=== PATIENT | female | born 1945 | race Caucasian/White ===

== ENCOUNTER → 2016-04-19 | Outpatient (CLI) | payer OTHER ==
[2016-04-19 17:36] LABS: BLOOD UREA NITROGEN 18 mg/dl (7-18); BUN/CREATININE RATIO 23.3 (10-20); CALCIUM 8.6 mg/dl (8.5-10.1); CARBON DIOXIDE 28 mmol/L (21-32); CHLORIDE 109 mmol/L (98-107); CREATININE 0.76 mg/dl (0.60-1.20); GLUCOSE 80 mg/dl (70-99); SODIUM 144 mmol/L (136-145)
== END | disposition home or self-care (01) ==
LOC: C.LABPBG 13:05
PROVIDERS: ATTEND Family Medicine
DX: I10 Essential (primary) hypertension (principal)

== ENCOUNTER → 2016-06-27 | Outpatient (CLI) | payer OTHER ==
--- NOTE | 2016-06-27 16:34 | MAMMOGRAPHY REPORT ---
BILATERAL DIGITAL SCREENING MAMMOGRAM WITH CAD: 06/27/2016 TECHNIQUE: Current study was also evaluated with a Computer Aided Detection (CAD) system. Bilatera l CC and MLO views were obtained. COMPARISON: Comparison is made to exams dated: 11/01/2014 mammogram, 08/25/2013 mammogram, 07/31/2012 ultrasound biopsy, 07/13/2012 consultation, 07/13/2012 ultrasound - [facility], and mammogram. BREAST COMPOSITION: The tissue of both breasts is almost entirely fatty. FINDINGS: No suspicious masses, calcifications, or areas of architectural distortion are noted in e ither breast. There has been no significant interval change compared to prior exams. A biopsy marke r clip is again noted in the left 3:00 breast. IMPRESSION: ACR BI-RADS CATEGORY 2: BENIGN There is no mammographic evidence of malignancy. A 1 year screening mammogram is recommended. The p atient will receive written notification of the results. Approximately 10% of breast cancers are not detected with mammography. A negative mammographic repor t should not delay biopsy if a clinically suggestive mass is present. Adriana Luu M.D. /:06/27/2016 14:52:02 Multiple Coil Winder: Sima LYN)(Danae), [facility] letter sent: Normal 1/2 BI-RADS Code: ACR BI-RADS Category 2: Benign
== END | disposition home or self-care (01) ==
LOC: C.MAMM 13:17
PROVIDERS: ATTEND Family Medicine
DX: Z12.31 Encounter for screening mammogram for malignant neoplasm of breast (principal)

== ENCOUNTER → 2016-09-04 | Outpatient (CLI) | payer OTHER ==
[2016-09-05 06:55] LABS: ESTIMATED AVERAGE GLUCOSE 114 mg/dl; HA1C FLAG Normal (Normal)
--- NOTE | 2016-09-24 12:44 | CODING QUERY MEDICAL NECESSITY ---
SUPPORTING DIAGNOSIS NEEDED A supporting diagnosis is required for the test/procedure performed on this patient in order for us to be reimbursed by the patient's insurance. Please provide a supporting diagnosis for the following test/procedure listed below next to the test name along with your signature. *If there is no additional diagnosis for this patient that would support the following test/procedure please document that below next to the test/procedure. Test(s)/Procedure(s) that require a supporting diagnosis: * HEMOGLOBIN A1C DIAGNOSIS: Provider Signature: Date: Thank you Tammy Phillip [employer] Once completed, please kindly fax back to [phone] For questions please call [phone]
== END | disposition home or self-care (01) ==
LOC: C.LABPBG 12:10
PROVIDERS: ATTEND Family Medicine
DX: Z13.1 Encounter for screening for diabetes mellitus (principal); E55.9 Vitamin D deficiency, unspecified; R30.0 Dysuria

== ENCOUNTER → 2016-09-04 | Outpatient (CLI) | payer OTHER ==
[2016-09-04 17:43] LABS: URINE APPEARANCE TURBID (CLEAR); URINE BILIRUBIN NEG (NEG); URINE COLOR YELLOW; URINE EPITHELIAL CELL AUTO >30 /lpf (0-5); URINE NITRITE NEG (NEG); UROBILINOGEN NEG (NEG); ZZUR CULT IF INDIC CLEAN CATCH NO
[2016-09-04 17:48] LABS: MANUAL MICROSCOPIC REQUIRED? NO; REVIEW REQ? NO
== END | disposition home or self-care (01) ==
LOC: C.LABSPEC 11:08
PROVIDERS: ATTEND Physician Assistant
DX: R30.0 Dysuria (principal)

== ENCOUNTER → 2016-09-11 | Outpatient (CLI) | payer OTHER ==
[2016-09-11 17:45] LABS: URINE APPEARANCE CLOUDY (CLEAR); URINE BILIRUBIN NEG (NEG); URINE COLOR DK YELLOW; URINE EPITHELIAL CELL AUTO >30 /lpf (0-5); URINE NITRITE NEG (NEG); UROBILINOGEN NEG (NEG); ZZUR CULT IF INDIC CLEAN CATCH NO
[2016-09-11 17:48] LABS: MANUAL MICROSCOPIC REQUIRED? NO; REVIEW REQ? NO
== END | disposition home or self-care (01) ==
LOC: C.LABPBG 12:41
PROVIDERS: ATTEND Family Medicine
DX: R30.0 Dysuria (principal)

== ENCOUNTER → 2017-03-12 | Outpatient (CLI) | payer OTHER ==
[2017-03-12 17:34] LABS: BASO % 1.2 %; BASO ABS # 0.08 K/uL (0-0.2); EOS % 1.9 %; EOS ABS # 0.13 K/uL (0-0.5); HEMATOCRIT 43.9 % (37-47); HEMOGLOBIN 14.1 g/dL (12.0-16.0); IG# 0.02 K/uL (0.00-0.02); LYMPH % 22.8 %; LYMPH ABS # 1.53 K/uL (1.2-3.4); MEAN CELL VOLUME 90.5 fL (80-100); MEAN CORPUSCULAR HEMOGLOBIN 29.1 pg (25-34); MEAN CORPUSCULAR HGB CONC 32.1 g/dl (32-36); MEAN PLATELET VOLUME 10.3 fL (7.4-10.4); MONO % 11.2 %; MONO ABS # 0.75 K/uL (0.11-0.59); NEUT % 62.6 %; NEUT ABS # 4.19 K/uL (1.4-6.5); PLATELET COUNT 198 K/uL (130-400); RED CELL DISTRIBUTION WIDTH CV 13.4 % (11.5-14.5); RED CELL DISTRIBUTION WIDTH SD 44.3 fL (36.4-46.3)
[2017-03-12 18:07] LABS: ALBUMIN 3.3 gm/dl (3.4-5.0); BLOOD UREA NITROGEN 19 mg/dl (7-18); CALCIUM 8.8 mg/dl (8.5-10.1); CARBON DIOXIDE 30 mmol/L (21-32); CREATININE 0.67 mg/dl (0.60-1.20); GLUCOSE 90 mg/dl (70-99); POTASSIUM 3.6 mmol/L (3.5-5.1); SODIUM 141 mmol/L (136-145)
[2017-03-12 18:15] LABS: ALKALINE PHOSPHATASE 111 U/L (45-117); ALT/SGPT 111 U/L (12-78); AST/SGOT 102 U/L (15-37); TOTAL PROTEIN 7.8 gm/dl (6.4-8.2)
== END | disposition home or self-care (01) ==
LOC: C.LABPBG 13:20
PROVIDERS: ATTEND Family Medicine
DX: E55.9 Vitamin D deficiency, unspecified (principal); R11.2 Nausea with vomiting, unspecified

== ENCOUNTER → 2017-04-01 | Outpatient (CLI) | payer OTHER ==
[2017-04-01 19:17] LABS: ALBUMIN 3.2 gm/dl (3.4-5.0); ALKALINE PHOSPHATASE 102 U/L (45-117); ALT/SGPT 31 U/L (12-78); AST/SGOT 20 U/L (15-37); TOTAL PROTEIN 7.3 gm/dl (6.4-8.2)
== END | disposition home or self-care (01) ==
LOC: C.LABPBG 12:39
PROVIDERS: ATTEND Family Medicine
DX: R74.8 Abnormal levels of other serum enzymes (principal)

== ENCOUNTER → 2017-07-04 | Outpatient (CLI) | payer OTHER ==
[2017-07-04 17:17] LABS: BASO % 0.7 %; BASO ABS # 0.05 K/uL (0-0.2); EOS ABS # 0.15 K/uL (0-0.5); HEMATOCRIT 42.6 % (37-47); IG# 0.02 K/uL (0.00-0.02); LYMPH % 24.6 %; MEAN CELL VOLUME 88.6 fL (80-100); MEAN CORPUSCULAR HEMOGLOBIN 29.1 pg (25-34); MEAN CORPUSCULAR HGB CONC 32.9 g/dl (32-36); MEAN PLATELET VOLUME 9.9 fL (7.4-10.4); MONO % 7.5 %; MONO ABS # 0.55 K/uL (0.11-0.59); NEUT % 64.9 %; NEUT ABS # 4.75 K/uL (1.4-6.5); PLATELET COUNT 254 K/uL (130-400); RED CELL DISTRIBUTION WIDTH CV 12.9 % (11.5-14.5); RED CELL DISTRIBUTION WIDTH SD 41.7 fL (36.4-46.3); WHITE BLOOD COUNT 7.32 K/uL (4.8-10.8)
[2017-07-04 17:27] LABS: PTT PATIENT 26.4 SECONDS (21.0-31.0)
[2017-07-04 17:41] LABS: BLOOD UREA NITROGEN 22 mg/dl (7-18); CALCIUM 8.9 mg/dl (8.5-10.1); CARBON DIOXIDE 29 mmol/L (21-32); CREATININE 0.72 mg/dl (0.60-1.20); GLUCOSE 83 mg/dl (70-99); SODIUM 139 mmol/L (136-145)
== END | disposition home or self-care (01) ==
LOC: C.LABPBG 14:30
PROVIDERS: ATTEND Family Medicine
DX: E55.9 Vitamin D deficiency, unspecified (principal); Z01.818 Encounter for other preprocedural examination

== ENCOUNTER → 2017-07-07 | Outpatient (CLI) | payer OTHER | END | disposition home or self-care (01) | LOC: C.LABSPEC 10:20 | PROVIDERS: ATTEND Family Medicine | DX: Z01.818 Encounter for other preprocedural examination (principal) ==

== ENCOUNTER → 2017-07-15 | Outpatient (CLI) | payer OTHER ==
--- NOTE | 2017-07-15 13:20 | DIAGNOSTIC IMAGING REPORT ---
CHEST 2 VIEWS ROUTINE CLINICAL HISTORY: Z01.818 Preop examination preoperative evaluation COMPARISON STUDY: No previous studies for comparison. FINDINGS: Minimal basilar fibrotic change. No acute infiltrate. Diaphragms are smooth. Calcific angles are sharp. There are degenerative changes of the thoracic spine. IMPRESSION: No acute process. The above report was generated using voice recognition software. It may contain grammatical, syntax or spelling errors. Electronically signed by: Pedro Garcia M.D. 07/15/2017 1:19 PM Dictated Date/Time: 07/15/2017 1:18 PM
== END | disposition home or self-care (01) ==
LOC: C.RADBC 12:35
PROVIDERS: ATTEND Family Medicine
DX: Z01.818 Encounter for other preprocedural examination (principal)

== ENCOUNTER 2021-04-03 15:57 | Inpatient (IN) ==
--- NOTE | 2021-04-03 16:53 | XRay Report ---
XR chest 1V portable CLINICAL HISTORY: congestion TECHNIQUE: Single frontal radiograph of the chest was obtained. Comparison: Comparison is made to chest one view 02/18/2018 FINDINGS: No lines and tubes are seen. The cardiomediastinal silhouette is stable. Prominence and cephalization of the vasculature is seen. Atelectasis is seen at the left lung base. No evidence of pleural effusi on or pneumothorax. IMPRESSION: Mild pulmonary edema. ACT 112: Negative or not required by law. Electronically signed by: Darius Timmons M.D. 04/03/2021 4:52 PM
[2021-04-03 16:57] LABS: Appearance Urine Clear (Clear); Bacteria Urine Automated Negative (Negative); Blood Urine Negative (Negative); Color Urine Dark Yellow; Epithelial Cell Urine Auto >30 /lpf (0-5); Glucose Urine UA Negative (Negative); Ketones Urine Trace (Negative); Leukocyte Esterase Urine Trace (Negative); Nitrite Urine Negative (Negative); Protein Urine 1+ (Negative); RBC Urine Automated 0-4 /hpf (0-4); Urobilinogen Urine Negative (Negative); pH Urine 5.5 (4.5-7.5)
[2021-04-03 17:58] LABS: Bilirubin Urine 1+ (Negative)
[2021-04-03] MEDS ORDERED: ACETAMINOPHEN 1000 MG/100 ML IV IV STA (19:24)
[2021-04-03 19:54] LABS: Basophils # (auto) 0.02 K/uL (0-0.2); Basophils % (auto) 0.4 %; Eosinophils # (auto) 0.02 K/uL (0-0.5); Eosinophils % (auto) 0.4 %; Hematocrit (blood only) 51.3 % (37-47); Hemoglobin 16.4 g/dL (12.0-16.0); Lymphocytes # (auto) 1.17 K/uL (1.2-3.4); Lymphocytes % (auto) 25.7 %; Mean Corpuscular Hemoglobin 28.8 pg (25-34); Mean Corpuscular Volume 90.2 fL (80-100); Mean Platelet Volume 9.9 fL (7.4-10.4); Monocytes # (auto) 0.86 K/uL (0.11-0.59); Monocytes % (auto) 18.9 %; Neutrophils # (auto) 2.49 K/uL (1.4-6.5); Neutrophils % (auto) 54.6 %; Platelet Count 180 K/uL (130-400); RDW Coefficient of Variation 12.9 % (11.5-14.5); RDW Standard Deviation 42.9 fL (36.4-46.3); Red Blood Count 5.69 M/uL (4.2-5.4); White Blood Count 4.56 K/uL (4.8-10.8)
[2021-04-03 20:14] LABS: D Dimer 450 ug/L FEU (0-500)
[2021-04-03] MEDS ORDERED: dexAMETHasone 6 MG in SYRINGE 0 ML IV ONE (20:24)
[2021-04-03 20:30] LABS: BUN Creatinine Ratio 23.6 (10-20); Bilirubin,Total 0.6 mg/dl (0.2-1.0); Calcium 8.8 mg/dl (8.5-10.1); Creatinine Clr Calc Pharmacy 64.2 ml/min; Est GFR (African American) 94.9 ml/min; Est GFR (Non-African American) 81.9 ml/min; Globulin 4.2 gm/dl (2.5-4.0); Magnesium 1.9 mg/dl (1.7-2.4); Potassium 3.2 mmol/L (3.5-5.1); Total Protein 8.2 gm/dl (6.0-8.3)
[2021-04-03 20:32] LABS: Base Excess VBG 4.7 mEq/L; Oxygen Saturation VBG 86.3 %; pH VBG 7.42 (7.36-7.41)
--- NOTE | 2021-04-03 20:34 | Emergency Department Note ---
History of Present Illness General Chief complaint: Illness Stated complaint: COUGH, VOMITING, SOB, FEVER, Time Seen by Provider: 04/03/21 19:24 History of Present Illness Provider complaint: Nausea, vomiting, diarrhea, fever, body aches, cough Onset (ago): day(s) 2 Associated symptoms: + chest pain, + cough, + fever/chills, + malaise, + nausea/vomiting and + shortness of breath; no seizure or no weakness 75-year-old female presents emergency department with Nausea, vomiting, diarrhea, fever, body aches, cough for 2 weeks. She denies any hematuria dysuria melena hematochezia or hemoptysis. Patient states she thinks she has the flu. Patient is unvaccinated COVID-19. Home Medications Medication Instructions Recorded Confirmed Type multivitamin (Daily Multi-Vitamin) 1 tab PO DAILY 07/30/18 04/03/21 History cholecalciferol (vitamin D3) 50 2,000 units PO DAILY tab 02/16/19 04/03/21 History mcg (2,000 unit) tablet cyanocobalamin (vitamin B-12) 100 100 mcg PO DAILY tab 02/16/19 04/03/21 History mcg tablet aspirin 81 mg tablet,delayed 81 mg PO DAILY 01/19/20 04/03/21 History release (Aspirin Low Dose) lisinopril 10 mg tablet 20 mg PO QAM #180 tab 03/29/20 04/03/21 Rx amlodipine 5 mg tablet 5 mg PO DAILY #90 tab 08/08/20 04/03/21 Rx lorazepam 0.5 mg tablet 0.5 mg PO TID PRN #90 tab 12/17/20 04/03/21 Rx omeprazole 40 mg capsule,delayed 40 mg PO DAILY PRN 04/03/21 04/03/21 History release Allergies Allergy/AdvReac Type Severity Reaction Status Date / Time No Known Drug Allergies Allergy Unknown Verified 04/03/21 19:54 Past Med/Surg History Medical History Acid reflux disease Calculus of ureterovesical junction (UVJ) CHANTELLE (generalized anxiety disorder) HTN, goal below 140/90 Insomnia 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 Post herpetic neuralgia Urinary incontinence in female Vitamin D deficiency Surgical History H/O rotator cuff surgery Left History of anesthesia reaction SLOW TO WAKE UP - REPORTS THAT THEY'VE HAD TO USE NARCAN TWICE BEFORE History of appendectomy History of bladder surgery "Lift" History of cholecystectomy History of facelift History of herniorrhaphy History of hysterectomy History of tubal ligation Hx of BSO (bilateral salpingo-oophorectomy) Hx of cataract surgery Bilateral;Had laser surgery as well Hx of colonoscopy S/P lumpectomy, left breast With SLN biopsy on 02/16/2020 Family History Mother , 89yo Breast cancer Parkinsons disease Brother Colorectal cancer Father , in his 80s Heart disease Brother No problems noted. Sister , as infant No problems noted. Sister Alzheimer disease Sister No problems noted. Son MVA (motor vehicle accident) Son No problems noted. Son No problems noted. Son No problems noted. Family/Other Breast cancer Cousin on father's side of family Denies family history of Ovarian cancer Prostate cancer Social History Smoking Status: Never smoker Second Hand Exposure: No; Hx Alcohol Use: Yes Alcohol type: hard liquor Alcohol Intake Frequency: Monthly or Less Hx Substance Use: No Preferred Language: Emirati Communication Ability: Effective Visual Impairment: No Limitations Hearing Ability: Normal Crystallography Teacher Required: No Beliefs That Will Affect Care: None marital status: / Current Living Situation: Alone current occupational status: retired Feels Safe at Home: Yes Childhood Exposure to Second-Hand Smoke: No Diet Comment: no specific diet caffeine: Yes (4 cups/day) during the past year weight has: remained stable Dental Care, Regularly: Yes Physical Activity Frequency: Daily Seatbelt Use: always Sunscreen Use: Yes Assistive Devices: None Review of Systems A total of 10 systems reviewed and were otherwise negative Physical Exam Vital Signs Vital Signs - 24 hr 04/03/21 16:03 04/03/21 19:25 04/03/21 19:43 Temperature 38.1 C H Temperature Source Temporal Artery Scan Pulse Rate 118 H 110 H Pulse Rate [Finger] 109 H Pulse Rhythm Regular Respiratory Rate 18 20 20 Blood Pressure 143/90 H Blood Pressure [Left Arm] 137/89 Blood Pressure Mean 107 Blood Pressure Mean [Left Arm] 105 Blood Pressure Position Sitting Pulse Oximetry 92 88 L 99 Oxygen Delivery Method Room Air Room Air Nasal Cannula Oxygen Flow Rate 2 Sepsis Recent Fever Within 48 Hours Yes Sepsis New/Unexplained Change in Mental Status No Sepsis Action Taken by Nursing No Action Required 04/03/21 23:09 Temperature Temperature Source Pulse Rate Pulse Rate [Finger] 99 H Pulse Rhythm Respiratory Rate 20 Blood Pressure Blood Pressure [Left Arm] 137/90 Blood Pressure Mean Blood Pressure Mean [Left Arm] 105 Blood Pressure Position Pulse Oximetry 95 Oxygen Delivery Method Nasal Cannula Oxygen Flow Rate 2 Sepsis Recent Fever Within 48 Hours Sepsis New/Unexplained Change in Mental Status Sepsis Action Taken by Nursing Physical Exam HENT: Exam performed. -Head: Normocephalic and atraumatic. -Right Ear: External ear normal. No mastoid tenderness. -Left Ear: External ear normal. No mastoid tenderness. -Mouth/Throat: The oropharynx is clear and moist. No trismus in the jaw. No dental abscesses or uvula swelling. No oropharyngeal exudate or tonsillar abscesses. EYES: Conjunctivae and EOM are normal. Pupils are equal, round, and reactive to light. Right eye exhibits no discharge. Left eye exhibits no discharge. No scleral icterus. NECK: Normal range of motion. Neck supple. No JVD present. No spinous process tenderness present. No carotid bruit present. No rigidity. No tracheal deviation and normal range of motion present. No Brudzinski's sign and no Kernig's sign noted. CV: Normal rate, regular rhythm, normal heart sounds and intact distal pulses. There is no peripheral edema. Palpable radial pulses bue. PULM/CHEST: Rhonchi bilaterally. -Chest Wall: She exhibits no tenderness. ABD: The abdomen is soft. Bowel sounds are normal. She has no distension. No mass is present. There is no tenderness. There is no rebound, no guarding, no Herrera's sign and no tenderness at McBurney's point. Rovsig negative MUSC/SKEL: Normal range of motion. There is no peripheral edema, tenderness or deformity. LYMPH: No cervical adenopathy. NEURO: She is alert and oriented to person, place, and time. She has normal strength. No cranial nerve deficit or sensory deficit. Coordination and gait normal. GCS eye subscore is 4. GCS verbal subscore is 5. GCS motor subscore is 6. Cerebellar tests wnl. SKIN: Skin is warm and dry. She is not diaphoretic. PSYCH: She has a normal mood and affect. Behavior is normal. Judgment and thought content normal. Course Course 1923: The patient was evaluated in room C4. A complete history and physical exam was performed Cardiac monitoring: An order was placed for continuous cardiac monitoring. The monitor shows a rate of 110 with sinus tachycardia rhythm Patient was hypoxic on room air at 88%. Supplemental oxygen via nasal cannula improved patient's oxygen saturation. High suspicion for Covid pneumonia as the patient's symptoms are consistent with Covid and she is unvaccinated. Decadron 6 mg ordered for the patient. 2129: Vital signs stable. Labs within normal limits with exception of potassium of 3.2. Patient is Covid positive. Patient will be admitted to the [facility] team Dr. Hilton team will be notified. Administered Medications Discontinued Medications Acetaminophen (Acetaminophen 1000 Mg/100 Ml Iv) 1,000 mg IV NOW STA Stop: 04/03/21 19:25 Last Admin: 04/03/21 19:55 Dose: 1,000 mg Documented by: [id number] Furosemide (Furosemide 40 Mg/4 Ml Vial) 40 mg IV ONE ONE Stop: 04/03/21 22:00 Last Admin: 04/03/21 22:20 Dose: 40 mg Documented by: [id number] Dexamethasone 6 mg/ Syringe 1.5 mls @ 1 mls/min IV ONE ONE Stop: 04/03/21 20:25 Last Admin: 04/03/21 21:22 Dose: 1 mls/min Documented by: [id number] Remdesivir 200 mg/ Sodium (Chloride) 250 mls @ 125 mls/hr IV ONE STA; Protocol Stop: 04/03/21 23:38 Last Admin: 04/03/21 22:21 Dose: 125 mls/hr Documented by: [id number] Potassium Chloride (Potassium Chloride 10 Meq Tabcr) 40 meq PO NOW STA Stop: 04/03/21 21:40 Last Admin: 04/03/21 22:21 Dose: 40 meq Documented by: [id number] Critical Care Time Critical Care Time: Yes Total Critical Care Time: 57 I have personally spent greater than 57 minutes of critical care time in the direct management of this patient. This includes bedside care, interpretation of diagnostic studies, and testing, discussion with consultants, patient, and family members, and other required patient management activities. This 57 minutes is in excess of all separately billable procedures. Medical Decision Making Laboratory Data Result diagrams: 04/03/21 19:40 04/03/21 19:40 Lab Results 04/03/21 04/03/21 04/03/21 Range/Units 16:09 19:40 19:40 WBC 4.56 L (4.8-10.8) K/uL RBC 5.69 H (4.2-5.4) M/uL Hgb 16.4 H (12.0-16.0) g/dL Hct 51.3 H (37-47) % MCV 90.2 (80-100) fL MCH 28.8 (25-34) pg MCHC 32.0 (32-36) g/dL RDW Std Deviation 42.9 (36.4-46.3) fL RDW Coeff of Jeffery 12.9 (11.5-14.5) % Plt Count 180 (130-400) K/uL MPV 9.9 (7.4-10.4) fL Immature Gran % (Auto) 0.0 % Neut % (Auto) 54.6 % Lymph % (Auto) 25.7 % Stanley % (Auto) 18.9 % Eos % (Auto) 0.4 % Baso % (Auto) 0.4 % Neut # (Auto) 2.49 (1.4-6.5) K/uL Lymph # (Auto) 1.17 L (1.2-3.4) K/uL Stanley # (Auto) 0.86 H (0.11-0.59) K/uL Eos # (Auto) 0.02 (0-0.5) K/uL Baso # (Auto) 0.02 (0-0.2) K/uL Immature Gran # (Auto) 0.00 (0.00-0.02) K/uL D-Dimer (0-500) ug/L FEU VBG pH (7.36-7.41) VBG pCO2 (38-50) mmHg VBG pO2 mmHg VBG HCO3 mmol/L VBG O2 Saturation % VBG Base Excess mEq/L Barometric Pressure mm/Hg Sodium 142 (136-145) mmol/L Potassium 3.2 L (3.5-5.1) mmol/L Chloride 101 (98-107) mmol/L Carbon Dioxide 34 H (21-32) mmol/L Anion Gap 7 (3-11) BUN 17 (6-23) mg/dl Creatinine 0.72 (0.6-1.2) mg/dl Est Cr Clr Drug Dosing 64.2 ml/min Est GFR ( Amer) 94.9 ml/min Est GFR (Non-Af Amer) 81.9 ml/min BUN/Creatinine Ratio 23.6 H (10-20) Glucose 102 H (70-99(Fasting)) mg/dl Lactate (0.4-2.0) mmol/L Calcium 8.8 (8.5-10.1) mg/dl Magnesium 1.9 (1.7-2.4) mg/dl Total Bilirubin 0.6 (0.2-1.0) mg/dl AST 66 H (13-39) U/L ALT 66 H (7-52) U/L Alkaline Phosphatase 103 (34-104) U/L B-Natriuretic Peptide (0-100) pg/ml Total Protein 8.2 (6.0-8.3) gm/dl Albumin 4.0 (3.4-5.0) gm/dl Globulin 4.2 H (2.5-4.0) gm/dl Albumin/Globulin Ratio 1.0 (0.9-2) Procalcitonin (0-0.5) ng/ml Urine Color Dark Yellow Urine Appearance Clear (Clear) Urine pH 5.5 (4.5-7.5) Ur Specific Lawrence 1.030 (1.000-1.030) Urine Protein 1+ H (Negative) Urine Glucose (UA) Negative (Negative) Urine Ketones Trace H (Negative) Urine Blood Negative (Negative) Urine Nitrite Negative (Negative) Urine Bilirubin 1+ H (Negative) Urine Urobilinogen Negative (Negative) Ur Leukocyte Esterase Trace H (Negative) Urine WBC (Auto) 1-5 (0-5) /hpf Urine RBC (Auto) 0-4 (0-4) /hpf U Hyaline Cast (Auto) 1-5 (0-5) /lpf U Epithel Cells (Auto) >30 H (0-5) /lpf Urine Bacteria (Auto) Negative (Negative) SARS-CoV-2, RNA, NAAT (NEGATIVE) 04/03/21 04/03/21 04/03/21 Range/Units 19:40 19:40 19:40 WBC (4.8-10.8) K/uL RBC (4.2-5.4) M/uL Hgb (12.0-16.0) g/dL Hct (37-47) % MCV (80-100) fL MCH (25-34) pg MCHC (32-36) g/dL RDW Std Deviation (36.4-46.3) fL RDW Coeff of Jeffery (11.5-14.5) % Plt Count (130-400) K/uL MPV (7.4-10.4) fL Immature Gran % (Auto) % Neut % (Auto) % Lymph % (Auto) % Stanley % (Auto) % Eos % (Auto) % Baso % (Auto) % Neut # (Auto) (1.4-6.5) K/uL Lymph # (Auto) (1.2-3.4) K/uL Stanley # (Auto) (0.11-0.59) K/uL Eos # (Auto) (0-0.5) K/uL Baso # (Auto) (0-0.2) K/uL Immature Gran # (Auto) (0.00-0.02) K/uL D-Dimer 450 (0-500) ug/L FEU VBG pH (7.36-7.41) VBG pCO2 (38-50) mmHg VBG pO2 mmHg VBG HCO3 mmol/L VBG O2 Saturation % VBG Base Excess mEq/L Barometric Pressure mm/Hg Sodium (136-145) mmol/L Potassium (3.5-5.1) mmol/L Chloride (98-107) mmol/L Carbon Dioxide (21-32) mmol/L Anion Gap (3-11) BUN (6-23) mg/dl Creatinine (0.6-1.2) mg/dl Est Cr Clr Drug Dosing ml/min Est GFR ( Amer) ml/min Est GFR (Non-Af Amer) ml/min BUN/Creatinine Ratio (10-20) Glucose (70-99(Fasting)) mg/dl Lactate 1.2 (0.4-2.0) mmol/L Calcium (8.5-10.1) mg/dl Magnesium (1.7-2.4) mg/dl Total Bilirubin (0.2-1.0) mg/dl AST (13-39) U/L ALT (7-52) U/L Alkaline Phosphatase (34-104) U/L B-Natriuretic Peptide (0-100) pg/ml Total Protein (6.0-8.3) gm/dl Albumin (3.4-5.0) gm/dl Globulin (2.5-4.0) gm/dl Albumin/Globulin Ratio (0.9-2) Procalcitonin (0-0.5) ng/ml Urine Color Urine Appearance (Clear) Urine pH (4.5-7.5) Ur Specific Lawrence (1.000-1.030) Urine Protein (Negative) Urine Glucose (UA) (Negative) Urine Ketones (Negative) Urine Blood (Negative) Urine Nitrite (Negative) Urine Bilirubin (Negative) Urine Urobilinogen (Negative) Ur Leukocyte Esterase (Negative) Urine WBC (Auto) (0-5) /hpf Urine RBC (Auto) (0-4) /hpf U Hyaline Cast (Auto) (0-5) /lpf U Epithel Cells (Auto) (0-5) /lpf Urine Bacteria (Auto) (Negative) SARS-CoV-2, RNA, NAAT POSITIVE A* (NEGATIVE) 04/03/21 04/03/21 04/03/21 Range/Units 20:02 20:02 20:02 WBC (4.8-10.8) K/uL RBC (4.2-5.4) M/uL Hgb (12.0-16.0) g/dL Hct (37-47) % MCV (80-100) fL MCH (25-34) pg MCHC (32-36) g/dL RDW Std Deviation (36.4-46.3) fL RDW Coeff of Jeffery (11.5-14.5) % Plt Count (130-400) K/uL MPV (7.4-10.4) fL Immature Gran % (Auto) % Neut % (Auto) % Lymph % (Auto) % Stanley % (Auto) % Eos % (Auto) % Baso % (Auto) % Neut # (Auto) (1.4-6.5) K/uL Lymph # (Auto) (1.2-3.4) K/uL Stanley # (Auto) (0.11-0.59) K/uL Eos # (Auto) (0-0.5) K/uL Baso # (Auto) (0-0.2) K/uL Immature Gran # (Auto) (0.00-0.02) K/uL D-Dimer (0-500) ug/L FEU VBG pH 7.42 H (7.36-7.41) VBG pCO2 48 (38-50) mmHg VBG pO2 50 mmHg VBG HCO3 30 mmol/L VBG O2 Saturation 86.3 % VBG Base Excess 4.7 mEq/L Barometric Pressure 736.3 mm/Hg Sodium (136-145) mmol/L Potassium (3.5-5.1) mmol/L Chloride (98-107) mmol/L Carbon Dioxide (21-32) mmol/L Anion Gap (3-11) BUN (6-23) mg/dl Creatinine (0.6-1.2) mg/dl Est Cr Clr Drug Dosing ml/min Est GFR ( Amer) ml/min Est GFR (Non-Af Amer) ml/min BUN/Creatinine Ratio (10-20) Glucose (70-99(Fasting)) mg/dl Lactate (0.4-2.0) mmol/L Calcium (8.5-10.1) mg/dl Magnesium (1.7-2.4) mg/dl Total Bilirubin (0.2-1.0) mg/dl AST (13-39) U/L ALT (7-52) U/L Alkaline Phosphatase (34-104) U/L B-Natriuretic Peptide 18 (0-100) pg/ml Total Protein (6.0-8.3) gm/dl Albumin (3.4-5.0) gm/dl Globulin (2.5-4.0) gm/dl Albumin/Globulin Ratio (0.9-2) Procalcitonin < 0.05 (0-0.5) ng/ml Urine Color Urine Appearance (Clear) Urine pH (4.5-7.5) Ur Specific Lawrence (1.000-1.030) Urine Protein (Negative) Urine Glucose (UA) (Negative) Urine Ketones (Negative) Urine Blood (Negative) Urine Nitrite (Negative) Urine Bilirubin (Negative) Urine Urobilinogen (Negative) Ur Leukocyte Esterase (Negative) Urine WBC (Auto) (0-5) /hpf Urine RBC (Auto) (0-4) /hpf U Hyaline Cast (Auto) (0-5) /lpf U Epithel Cells (Auto) (0-5) /lpf Urine Bacteria (Auto) (Negative) SARS-CoV-2, RNA, NAAT (NEGATIVE) Imaging Data Radiologist's Impression: Chest X-Ray 04/03/21 16:06 XR chest 1V portable CLINICAL HISTORY: congestion TECHNIQUE: Single frontal radiograph of the chest was obtained. Comparison: Comparison is made to chest one view 02/18/2018 FINDINGS: No lines and tubes are seen. The cardiomediastinal silhouette is stable. Prominence and cephalization of the vasculature is seen. Atelectasis is seen at the left lung base. No evidence of pleural effusion or pneumothorax. IMPRESSION: Mild pulmonary edema. ACT 112: Negative or not required by law. Electronically signed by: Darius Timmons M.D. 04/03/2021 4:52 PM ECG Data Indication: + SOB/dyspnea Rate (beats per minute): 106 Rhythm: + normal sinus ECG Intervals/blocks: + Normal OH and + Normal QT-c ECG ST segments: + Normal ST segments Additional Comments: QRS 66 MDM Narrative 1923: The patient was evaluated in room C4. A complete history and physical exam was performed Cardiac monitoring: An order was placed for continuous cardiac monitoring. The monitor shows a rate of 110 with sinus tachycardia rhythm Patient was hypoxic on room air at 88%. Supplemental oxygen via nasal cannula improved patient's oxygen saturation. High suspicion for Covid pneumonia as the patient's symptoms are consistent with Covid and she is unvaccinated. Decadron 6 mg ordered for the patient. 2129: Vital signs stable. Labs within normal limits with exception of potassium of 3.2. Patient is Covid positive. Patient will be admitted to the [facility] team Dr. Hilton team will be notified. Impression & Plan Hypoxia, COVID-19 Discharge Plan Visit Data Chief Complaint: Illness Stated Complaint: COUGH, VOMITING, SOB, FEVER, Discharge Problem: Hypoxia, COVID-19 Patient Disposition: Admitted As Inpatient Forms Stand Alone Forms: [facility] Prescriptions Prescriptions: No Action lisinopril 10 mg tablet 20 mg PO QAM Qty: 180 RF: 1 amlodipine 5 mg tablet 5 mg PO DAILY Qty: 90 RF: 1 lorazepam 0.5 mg tablet 0.5 mg PO TID PRN (Reason: Anxiety) Qty: 90 RF: 0 multivitamin [Daily Multi-Vitamin] tablet 1 tab PO DAILY RF: 0 cholecalciferol (vitamin D3) 2,000 unit tablet 2,000 units PO DAILY RF: 0 cyanocobalamin (vitamin B-12) 100 mcg tablet 100 mcg PO DAILY RF: 0 aspirin [Aspirin Low Dose] 81 mg Tablet,Delayed Release (Dr/Ec) 81 mg PO DAILY RF: 0 omeprazole 40 mg capsule,delayed release(DR/EC) 40 mg PO DAILY PRN (Reason: Heartburn) RF: 0 Referrals Referrals: Gabrielle Blackwell MD [Primary Care Provider] -
[2021-04-03] MEDS ORDERED: REMDESIVIR 200 MG in SODIUM CHLORIDE 0.9% 210 ML IV STA (21:39)
[2021-04-03] MEDS ORDERED: POTASSIUM CHLORIDE 10 MEQ TABCR PO STA (21:39)
[2021-04-03] MEDS ORDERED: ENOXAPARIN 0.5 MG/KG SQ SCH (21:45)
--- NOTE | 2021-04-03 21:52 | History & Physical Report ---
Date of Service April 03, 2021 Assessment & Plan (1) COVID-19: Plan: Joelle Faith is a 75y/o F w/ PMH significant for hypertension, anxiety, and GERD; who presents for concerns of 2 weeks of worsening cough, congestion, diarrhea, and vomiting. COVID-19: -worsening symptoms over the last two weeks -COVID-19 positive on admission requiring oxygen supplementation to maintain oxygen saturations >90% -started on Decadron in ED 6mg x1 -will continue this for total of 10 days -started on remdesivir will continue for total of 5 days -lasix 40mg x1 in ED -CXR demonstrating mild bilateral pulmonary edema -COVID-19 DVT prophylaxis started Fever: -Febrile on admission to 38.1C -likely secondary to COVID-19 infection -negative WBC, negative pro-adin -blood cultures drawn in ED -no ABX started in ED -no current indication for ABX Hypokalemia: -K of 3.2 on admission -replenished with 40meq KCl in ED -recheck in AM and continue to replete as indicated HTN: -continue home regimen of lisinopril 20mg daily CHANTELLE: -continue home lorazepam 0.5mg TID PRN for anxiety GERD: -continue home omeprazole 40mg daily CODE STATUS: Full code Diet: Regular DVT prophylaxis: SQ lovenox (2) HTN, goal below 140/90: (3) CHANTELLE (generalized anxiety disorder): (4) Acid reflux disease: (5) Fever: History of Present Illness Primary Care Provider: Gabrielle Blackwell MD Joelle Faith is a 75y/o F w/ PMH significant for hypertension, anxiety, GERD, and Breast cancer s/p lumpectomy in 2019; who presents for concerns of 2 weeks of worsening cough, congestion, diarrhea, and vomiting. She is not vaccinated, and was relatively un-surprised by the COVID-19 diagnosis. Recognizes the need to get vaccinated once she has improved and is able to get out of the hospital. Allergies Allergy/AdvReac Type Severity Reaction Status Date / Time No Known Drug Allergies Allergy Unknown Verified 04/03/21 19:54 Home Medications Medication Instructions Recorded Confirmed Type multivitamin (Daily Multi-Vitamin) 1 tab PO DAILY 07/30/18 04/03/21 History cholecalciferol (vitamin D3) 50 2,000 units PO DAILY tab 02/16/19 04/03/21 History mcg (2,000 unit) tablet cyanocobalamin (vitamin B-12) 100 100 mcg PO DAILY tab 02/16/19 04/03/21 History mcg tablet aspirin 81 mg tablet,delayed 81 mg PO DAILY 01/19/20 04/03/21 History release (Aspirin Low Dose) lisinopril 10 mg tablet 20 mg PO QAM #180 tab 03/29/20 04/03/21 Rx amlodipine 5 mg tablet 5 mg PO DAILY #90 tab 08/08/20 04/03/21 Rx lorazepam 0.5 mg tablet 0.5 mg PO TID PRN #90 tab 12/17/20 04/03/21 Rx omeprazole 40 mg capsule,delayed 40 mg PO DAILY PRN 04/03/21 04/03/21 History release dexamethasone 4 mg tablet 6 mg PO DAILY 5 Days #8 tab 04/07/21 Rx rivaroxaban 10 mg tablet (Xarelto) 10 mg PO DAILY #30 tab 04/07/21 Rx Past Med/Surg History Medical History Acid reflux disease Calculus of ureterovesical junction (UVJ) CHANTELLE (generalized anxiety disorder) HTN, goal below 140/90 Insomnia 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 Post herpetic neuralgia Urinary incontinence in female Vitamin D deficiency Surgical History H/O rotator cuff surgery Left History of anesthesia reaction SLOW TO WAKE UP - REPORTS THAT THEY'VE HAD TO USE NARCAN TWICE BEFORE History of appendectomy History of bladder surgery "Lift" History of cholecystectomy History of facelift History of herniorrhaphy History of hysterectomy History of tubal ligation Hx of BSO (bilateral salpingo-oophorectomy) Hx of cataract surgery Bilateral;Had laser surgery as well Hx of colonoscopy S/P lumpectomy, left breast With SLN biopsy on 02/16/2020 Family History Mother , 89yo Breast cancer Parkinsons disease Brother Colorectal cancer Father , in his 80s Heart disease Brother No problems noted. Sister , as infant No problems noted. Sister Alzheimer disease Sister No problems noted. Son MVA (motor vehicle accident) Son No problems noted. Son No problems noted. Son No problems noted. Family/Other Breast cancer Cousin on father's side of family Denies family history of Ovarian cancer Prostate cancer Social History Smoking Status: Never smoker Second Hand Exposure: No; Hx Alcohol Use: Yes Alcohol type: hard liquor Alcohol Intake Frequency: Monthly or Less Hx Substance Use: No Preferred Language: Icelandic Communication Ability: Effective Visual Impairment: No Limitations Hearing Ability: Normal Patient Care Representative Required: No Beliefs That Will Affect Care: None marital status: / Current Living Situation: Alone current occupational status: retired Feels Safe at Home: Yes Childhood Exposure to Second-Hand Smoke: No Diet Comment: no specific diet caffeine: Yes (4 cups/day) during the past year weight has: remained stable Dental Care, Regularly: Yes Physical Activity Frequency: Daily Seatbelt Use: always Sunscreen Use: Yes Assistive Devices: Oxygen - Continuous Review of Systems Review of Systems: All systems reviewed & are unremarkable except as noted in HPI & below Physical Exam Constitutional: WD/WN, vitals as above Eyes: PERRL, conjunctivae normal, anicteric sclerae Respiratory: normal respiratory effort, lungs clear to auscultation Auscultation: no crackles, no rales, no rhonchi and no wheezes Cardiovascular: Rate/Rhythm: regular rate and regular rhythm Heart Sounds: no gallop, no murmur and no cardiac rub Vessels: normal peripheral pulses; no JVD Extremities: no edema Gastrointestinal (Abdomen): Inspection/Auscultation: normal bowel sounds; abdomen not distended Percussion/Palpation: abdomen soft; abdomen nontender and no guarding Musculoskeletal: no cyanosis or clubbing, extremities motor strength 5/5 Skin: no rashes, warm and dry Neurologic: PERRL, EOMI, accommodation nl, no face palsy, no dysarthria CN's II-XI intact bilaterally and moves all extremities Psychiatric: Orientation: alert and oriented x 3 Results & Data Results & Data ([facility]) Vital Signs (Past 12 Hours) Vital Signs Temp Pulse Pulse Resp BP BP Pulse Ox 04/03/21 19:43 109 H 20 137/89 99 04/03/21 19:25 110 H 20 88 L 04/03/21 16:03 38.1 C H 118 H 18 143/90 H 92 Laboratory Results 04/03/21 04/03/21 04/03/21 Range/Units 20:02 20:02 20:02 WBC (4.8-10.8) K/uL RBC (4.2-5.4) M/uL Hgb (12.0-16.0) g/dL Hct (37-47) % MCV (80-100) fL MCH (25-34) pg MCHC (32-36) g/dL RDW Std Deviation (36.4-46.3) fL RDW Coeff of Jeffery (11.5-14.5) % Plt Count (130-400) K/uL MPV (7.4-10.4) fL Immature Gran % (Auto) % Neut % (Auto) % Lymph % (Auto) % [place] % (Auto) % Eos % (Auto) % Baso % (Auto) % Neut # (Auto) (1.4-6.5) K/uL Lymph # (Auto) (1.2-3.4) K/uL [place] # (Auto) (0.11-0.59) K/uL Eos # (Auto) (0-0.5) K/uL Baso # (Auto) (0-0.2) K/uL Immature Gran # (Auto) (0.00-0.02) K/uL D-Dimer (0-500) ug/L FEU VBG pH 7.42 H (7.36-7.41) VBG pCO2 48 (38-50) mmHg VBG pO2 50 mmHg VBG HCO3 30 mmol/L VBG O2 Saturation 86.3 % VBG Base Excess 4.7 mEq/L Barometric Pressure 736.3 mm/Hg Sodium (136-145) mmol/L Potassium (3.5-5.1) mmol/L Chloride (98-107) mmol/L Carbon Dioxide (21-32) mmol/L Anion Gap (3-11) BUN (6-23) mg/dl Creatinine (0.6-1.2) mg/dl Est Cr Clr Drug Dosing ml/min Est GFR ( Amer) ml/min Est GFR (Non-Af Amer) ml/min BUN/Creatinine Ratio (10-20) Glucose (70-99(Fasting)) mg/dl Lactate (0.4-2.0) mmol/L Calcium (8.5-10.1) mg/dl Magnesium (1.7-2.4) mg/dl Total Bilirubin (0.2-1.0) mg/dl AST (13-39) U/L ALT (7-52) U/L Alkaline Phosphatase (34-104) U/L B-Natriuretic Peptide 18 (0-100) pg/ml Total Protein (6.0-8.3) gm/dl Albumin (3.4-5.0) gm/dl Globulin (2.5-4.0) gm/dl Albumin/Globulin Ratio (0.9-2) Procalcitonin < 0.05 (0-0.5) ng/ml Urine Color Urine Appearance (Clear) Urine pH (4.5-7.5) Ur Specific [place] (1.000-1.030) Urine Protein (Negative) Urine Glucose (UA) (Negative) Urine Ketones (Negative) Urine Blood (Negative) Urine Nitrite (Negative) Urine Bilirubin (Negative) Urine Urobilinogen (Negative) Ur Leukocyte Esterase (Negative) Urine WBC (Auto) (0-5) /hpf Urine RBC (Auto) (0-4) /hpf U Hyaline Cast (Auto) (0-5) /lpf U Epithel Cells (Auto) (0-5) /lpf Urine Bacteria (Auto) (Negative) SARS-CoV-2, RNA, NAAT (NEGATIVE) 04/03/21 04/03/21 04/03/21 Range/Units 19:40 19:40 19:40 WBC (4.8-10.8) K/uL RBC (4.2-5.4) M/uL Hgb (12.0-16.0) g/dL Hct (37-47) % MCV (80-100) fL MCH (25-34) pg MCHC (32-36) g/dL RDW Std Deviation (36.4-46.3) fL RDW Coeff of Jeffery (11.5-14.5) % Plt Count (130-400) K/uL MPV (7.4-10.4) fL Immature Gran % (Auto) % Neut % (Auto) % Lymph % (Auto) % [place] % (Auto) % Eos % (Auto) % Baso % (Auto) % Neut # (Auto) (1.4-6.5) K/uL Lymph # (Auto) (1.2-3.4) K/uL [place] # (Auto) (0.11-0.59) K/uL Eos # (Auto) (0-0.5) K/uL Baso # (Auto) (0-0.2) K/uL Immature Gran # (Auto) (0.00-0.02) K/uL D-Dimer 450 (0-500) ug/L FEU VBG pH (7.36-7.41) VBG pCO2 (38-50) mmHg VBG pO2 mmHg VBG HCO3 mmol/L VBG O2 Saturation % VBG Base Excess mEq/L Barometric Pressure mm/Hg Sodium (136-145) mmol/L Potassium (3.5-5.1) mmol/L Chloride (98-107) mmol/L Carbon Dioxide (21-32) mmol/L Anion Gap (3-11) BUN (6-23) mg/dl Creatinine (0.6-1.2) mg/dl Est Cr Clr Drug Dosing ml/min Est GFR ( Amer) ml/min Est GFR (Non-Af Amer) ml/min BUN/Creatinine Ratio (10-20) Glucose (70-99(Fasting)) mg/dl Lactate 1.2 (0.4-2.0) mmol/L Calcium (8.5-10.1) mg/dl Magnesium (1.7-2.4) mg/dl Total Bilirubin (0.2-1.0) mg/dl AST (13-39) U/L ALT (7-52) U/L Alkaline Phosphatase (34-104) U/L B-Natriuretic Peptide (0-100) pg/ml Total Protein (6.0-8.3) gm/dl Albumin (3.4-5.0) gm/dl Globulin (2.5-4.0) gm/dl Albumin/Globulin Ratio (0.9-2) Procalcitonin (0-0.5) ng/ml Urine Color Urine Appearance (Clear) Urine pH (4.5-7.5) Ur Specific [place] (1.000-1.030) Urine Protein (Negative) Urine Glucose (UA) (Negative) Urine Ketones (Negative) Urine Blood (Negative) Urine Nitrite (Negative) Urine Bilirubin (Negative) Urine Urobilinogen (Negative) Ur Leukocyte Esterase (Negative) Urine WBC (Auto) (0-5) /hpf Urine RBC (Auto) (0-4) /hpf U Hyaline Cast (Auto) (0-5) /lpf U Epithel Cells (Auto) (0-5) /lpf Urine Bacteria (Auto) (Negative) SARS-CoV-2, RNA, NAAT POSITIVE A* (NEGATIVE) 04/03/21 04/03/21 04/03/21 Range/Units 19:40 19:40 16:09 WBC 4.56 L (4.8-10.8) K/uL RBC 5.69 H (4.2-5.4) M/uL Hgb 16.4 H (12.0-16.0) g/dL Hct 51.3 H (37-47) % MCV 90.2 (80-100) fL MCH 28.8 (25-34) pg MCHC 32.0 (32-36) g/dL RDW Std Deviation 42.9 (36.4-46.3) fL RDW Coeff of Jeffery 12.9 (11.5-14.5) % Plt Count 180 (130-400) K/uL MPV 9.9 (7.4-10.4) fL Immature Gran % (Auto) 0.0 % Neut % (Auto) 54.6 % Lymph % (Auto) 25.7 % [place] % (Auto) 18.9 % Eos % (Auto) 0.4 % Baso % (Auto) 0.4 % Neut # (Auto) 2.49 (1.4-6.5) K/uL Lymph # (Auto) 1.17 L (1.2-3.4) K/uL [place] # (Auto) 0.86 H (0.11-0.59) K/uL Eos # (Auto) 0.02 (0-0.5) K/uL Baso # (Auto) 0.02 (0-0.2) K/uL Immature Gran # (Auto) 0.00 (0.00-0.02) K/uL D-Dimer (0-500) ug/L FEU VBG pH (7.36-7.41) VBG pCO2 (38-50) mmHg VBG pO2 mmHg VBG HCO3 mmol/L VBG O2 Saturation % VBG Base Excess mEq/L Barometric Pressure mm/Hg Sodium 142 (136-145) mmol/L Potassium 3.2 L (3.5-5.1) mmol/L Chloride 101 (98-107) mmol/L Carbon Dioxide 34 H (21-32) mmol/L Anion Gap 7 (3-11) BUN 17 (6-23) mg/dl Creatinine 0.72 (0.6-1.2) mg/dl Est Cr Clr Drug Dosing 64.2 ml/min Est GFR ( Amer) 94.9 ml/min Est GFR (Non-Af Amer) 81.9 ml/min BUN/Creatinine Ratio 23.6 H (10-20) Glucose 102 H (70-99(Fasting)) mg/dl Lactate (0.4-2.0) mmol/L Calcium 8.8 (8.5-10.1) mg/dl Magnesium 1.9 (1.7-2.4) mg/dl Total Bilirubin 0.6 (0.2-1.0) mg/dl AST 66 H (13-39) U/L ALT 66 H (7-52) U/L Alkaline Phosphatase 103 (34-104) U/L B-Natriuretic Peptide (0-100) pg/ml Total Protein 8.2 (6.0-8.3) gm/dl Albumin 4.0 (3.4-5.0) gm/dl Globulin 4.2 H (2.5-4.0) gm/dl Albumin/Globulin Ratio 1.0 (0.9-2) Procalcitonin (0-0.5) ng/ml Urine Color Dark Yellow Urine Appearance Clear (Clear) Urine pH 5.5 (4.5-7.5) Ur Specific [place] 1.030 (1.000-1.030) Urine Protein 1+ H (Negative) Urine Glucose (UA) Negative (Negative) Urine Ketones Trace H (Negative) Urine Blood Negative (Negative) Urine Nitrite Negative (Negative) Urine Bilirubin 1+ H (Negative) Urine Urobilinogen Negative (Negative) Ur Leukocyte Esterase Trace H (Negative) Urine WBC (Auto) 1-5 (0-5) /hpf Urine RBC (Auto) 0-4 (0-4) /hpf U Hyaline Cast (Auto) 1-5 (0-5) /lpf U Epithel Cells (Auto) >30 H (0-5) /lpf Urine Bacteria (Auto) Negative (Negative) SARS-CoV-2, RNA, NAAT (NEGATIVE) Diagnostic Findings Impressions Chest X-Ray 04/03/21 16:06 XR chest 1V portable CLINICAL HISTORY: congestion TECHNIQUE: Single frontal radiograph of the chest was obtained. Comparison: Comparison is made to chest one view 02/18/2018 FINDINGS: No lines and tubes are seen. The cardiomediastinal silhouette is stable. Prominence and cephalization of the vasculature is seen. Atelectasis is seen at the left lung base. No evidence of pleural effusion or pneumothorax. IMPRESSION: Mild pulmonary edema. ACT 112: Negative or not required by law. Electronically signed by: Darius Timmons M.D. 04/03/2021 4:52 PM Medications Administered Home Medication List Medication Instructions Recorded multivitamin (Daily Multi-Vitamin) 1 tab PO DAILY 07/30/18 cholecalciferol (vitamin D3) 50 2,000 units PO DAILY tab 02/16/19 mcg (2,000 unit) tablet cyanocobalamin (vitamin B-12) 100 100 mcg PO DAILY tab 02/16/19 mcg tablet aspirin 81 mg tablet,delayed 81 mg PO DAILY 01/19/20 release (Aspirin Low Dose) lisinopril 10 mg tablet 20 mg PO QAM #180 tab 03/29/20 amlodipine 5 mg tablet 5 mg PO DAILY #90 tab 08/08/20 lorazepam 0.5 mg tablet 0.5 mg PO TID PRN #90 tab 12/17/20 omeprazole 40 mg capsule,delayed 40 mg PO DAILY PRN 04/03/21 release Code Status & VTE Plan VTE Prophylaxis Plan VTE Prophylaxis will be ordered: Yes Supervising Physician Co-Signing Physician Notes Patient is seen and examined at bedside. Obtained a history and physical examination during face to face encounter. Discussed plan of care with patient and Dr. De Los Santos. Reviewed above note and agree with it. Patient admitted with COVID 19 Patient will be on remdesevir and dexamethasone. Resident Activity Tracking Resident Involvement: Resident Care Provided Care Provided: Adult Hospital Medicine
[2021-04-03] MEDS ORDERED: FUROSEMIDE 40 MG/4 ML VIAL IV ONE (21:59)
[2021-04-04] MEDS: ENOXAPARIN INJ 40 MG/0.4 ML SYR SQ SCH ×3 (00:17→21:12)
[2021-04-04] MEDS ORDERED: ACETAMINOPHEN 325 MG TAB PO PRN (00:22)
[2021-04-04] MEDS ORDERED: POLYETHYLENE (MIRALAX) 17 GM PACK PO PRN (00:22)
[2021-04-04] MEDS ORDERED: ONDANSETRON INJ 2 MG/ML 2 ML VIAL IV PRN (00:22)
[2021-04-04] MEDS ORDERED: LORazepam 0.5 MG TAB PO PRN (00:22)
[2021-04-04] MEDS ORDERED: MAGNESIUM HYDROXIDE SUSP 30 ML UDC PO PRN (00:22)
[2021-04-04] MEDS ORDERED: ALUMINUM/MAGNESIUM SUSP 30 ML UDC PO PRN (00:22)
[2021-04-04] MEDS ORDERED: PANTOprazole 40 MG TAB PO PRN (00:42)
[2021-04-04 05:59] LABS: Basophils # (auto) 0.01 K/uL (0-0.2); Basophils % (auto) 0.4 %; Eosinophils # (auto) 0.01 K/uL (0-0.5); Eosinophils % (auto) 0.4 %; Hematocrit (blood only) 47.4 % (37-47); Hemoglobin 15.1 g/dL (12.0-16.0); Lymphocytes # (auto) 0.66 K/uL (1.2-3.4); Lymphocytes % (auto) 29.3 %; Mean Corpuscular Hemoglobin 28.5 pg (25-34); Mean Corpuscular Hgb Conc 31.9 g/dL (32-36); Mean Corpuscular Volume 89.6 fL (80-100); Mean Platelet Volume 10.4 fL (7.4-10.4); Monocytes # (auto) 0.21 K/uL (0.11-0.59); Monocytes % (auto) 9.3 %; Neutrophils # (auto) 1.36 K/uL (1.4-6.5); Neutrophils % (auto) 60.6 %; Platelet Count 206 K/uL (130-400); RDW Coefficient of Variation 13.1 % (11.5-14.5); RDW Standard Deviation 43.2 fL (36.4-46.3); Red Blood Count 5.29 M/uL (4.2-5.4); White Blood Count 2.25 K/uL (4.8-10.8)
[2021-04-04 06:07] LABS: Albumin Level 3.7 gm/dl (3.4-5.0); BUN Creatinine Ratio 28.8 (10-20); Bilirubin,Total 0.5 mg/dl (0.2-1.0); Calcium 8.4 mg/dl (8.5-10.1); Creatinine Clr Calc Pharmacy 78.4 ml/min; Est GFR (African American) 103.9 ml/min; Est GFR (Non-African American) 89.7 ml/min; Globulin 3.7 gm/dl (2.5-4.0); Magnesium 1.8 mg/dl (1.7-2.4); Phosphorus 2.2 mg/dl (2.5-4.9); Potassium 3.8 mmol/L (3.5-5.1); Total Protein 7.4 gm/dl (6.0-8.3)
[2021-04-04] MEDS ORDERED: POTASSIUM PHOS 3 MMOL/1 ML INFUSION IV STA (07:48)
[2021-04-04] MEDS ORDERED: MAGNESIUM SULFATE / D5W 1 GM/100 ML BAG IV ONE (07:48)
[2021-04-04] MEDS ORDERED: POTASSIUM PHOSPHATE 15 MMOL in SODIUM CHLORIDE 0.9% 250 ML IV ONE (08:30)
[2021-04-04] MEDS: guaiFENesin/DEXTROM SYRUP 200MG/20MG 10ML UDC PO PRN (08:36)
[2021-04-04] MEDS: ASPIRIN 81 MG ECTAB PO SCH (08:40)
[2021-04-04] MEDS: amLODIPine BESYLATE 5 MG TAB PO SCH (08:40)
[2021-04-04] MEDS: dexAMETHasone 6 MG in SYRINGE 0 ML IV SCH (08:41)
[2021-04-04] MEDS: lisinopril 20 MG TAB PO SCH (08:41)
--- NOTE | 2021-04-04 14:58 | Electrocardiogram Report ---
Test Reason : Blood Pressure : / mmHG Vent. Rate : 106 BPM Atrial Rate : 106 BPM P-R Int : 138 ms QRS Dur : 066 ms QT Int : 344 ms P-R-T Axes : 032 000 028 degrees QTc Int : 456 ms Sinus tachycardia possible Inferior infarct , age undetermined Abnormal ECG When compared with ECG of 19-JAN-2020 11:14, possible Inferior infarct is now Present Confirmed by Calvin Valencia ([id number]) on 04/04/2021 2:57:36 PM Referred By: REFERRED SELF Confirmed By:Bobo Valencia
[2021-04-04] MEDS ORDERED: LOPERAMIDE HCL 2 MG CAP PO PRN (18:06)
--- NOTE | 2021-04-04 18:25 | Hospitalist Progress Note ---
Date of Service April 04, 2021 Assessment & Plan (1) COVID-19: Plan: Joelle Faith is a 75y/o F w/ PMH significant for hypertension, anxiety, and GERD; who presents for concerns of 2 weeks of worsening cough, congestion, diarrhea, and vomiting. COVID-19: With Covid-19 pneumonitis and acute respiratory failure with hypoxia -worsening symptoms over the last two weeks -COVID-19 positive on admission requiring oxygen supplementation to maintain oxygen saturations >90% -started on Decadron in ED 6mg x1 -will continue this for total of 10 days -started on remdesivir upon admission but she is at least 2 weeks into her illness and this would not be effective-discontinued -lasix 40mg x1 in ED need any further in fact, she had nausea/vomiting/diarrhea for 2 weeks and does not need any more Lasix -CXR demonstrating mild bilateral pulmonary edema but this could also be interstitial pneumonitis -COVID-19 DVT prophylaxis started with Lovenox 40 mg twice daily Fever: -Febrile on admission to 38.1C -likely secondary to COVID-19 infection -negative WBC, negative pro-adin, UA negative for infection, no abdominal pain -blood cultures drawn in ED-no growth today -no abx at this time although low threshold to start them if fevers not improving -Check stool studies Nausea/vomiting/diarrhea: -Likely secondary to Covid-19 -With fevers, no abdominal pain -Check stool studies -Zofran as needed -Imodium as needed if C. difficile negative Hypokalemia: -K of 3.2 on admission, replaced and now resolved -Follow BMP HTN: Blood pressures controlled -continue home regimen of lisinopril 20mg daily CHANTELLE: -continue home lorazepam 0.5mg TID PRN for anxiety GERD: -continue home omeprazole 40mg daily CODE STATUS: Full code Diet: Regular DVT prophylaxis: SQ lovenox (2) HTN, goal below 140/90: (3) CHANTELLE (generalized anxiety disorder): (4) Acid reflux disease: (5) Fever: (6) Hypoxia: (7) Hypokalemia: (8) Nausea vomiting and diarrhea: Admission and Anticipated Discharge Date Admission Date: April 03, 2021 Subjective Patient feeling better, less short of breath. She does desat to 80% when she walked to the bathroom back without oxygen as per nursing. She still had some nausea this morning but that was resolved except for some diarrhea this morning, no further diarrhea since then. Was able to eat lunch. No abdominal pains. Denies chest pain. Does have some mild cough. Review of Systems Review of Systems: All systems reviewed & are unremarkable except as noted in HPI & below Physical Exam Constitutional: WD/WN, vitals as above Eyes: PERRL, conjunctivae normal, anicteric sclerae ENMT: external ear and nose normal, oropharynx normal Neck: trachea midline, no thyromegaly Respiratory: normal respiratory effort and + cough Auscultation: + crackles (Right lower lung field); no wheezes Cardiovascular: RRR, no murmur, no edema Chest (Breasts): Chest: normal inspection of chest Gastrointestinal (Abdomen): normal bowel sounds, soft, nontender, no hepatosplenomegaly Musculoskeletal: Extremities: extremities normal to inspection; no cyanosis and no clubbing Skin: no rashes, warm and dry Neurologic: moves all extremities and awake; no focal motor deficits Psychiatric: A+Ox3, euthymic affect Lymphatic: no lymphedema Results & Data Results & Data ([facility]) Vital Signs (Past 12 Hours) Vital Signs Pulse Resp BP Pulse Ox 04/04/21 18:09 88 18 111/70 95 04/04/21 14:00 94 H 20 131/74 94 04/04/21 12:00 95 04/04/21 07:47 86 20 128/82 95 04/04/21 07:45 95 Laboratory Results 04/04/21 04/04/21 04/03/21 Range/Units 05:04 05:04 20:02 WBC 2.25 L (4.8-10.8) K/uL RBC 5.29 (4.2-5.4) M/uL Hgb 15.1 (12.0-16.0) g/dL Hct 47.4 H (37-47) % MCV 89.6 (80-100) fL MCH 28.5 (25-34) pg MCHC 31.9 L (32-36) g/dL RDW Std Deviation 43.2 (36.4-46.3) fL RDW Coeff of Jeffery 13.1 (11.5-14.5) % Plt Count 206 (130-400) K/uL MPV 10.4 (7.4-10.4) fL Immature Gran % (Auto) 0.0 % Neut % (Auto) 60.6 % Lymph % (Auto) 29.3 % [place] % (Auto) 9.3 % Eos % (Auto) 0.4 % Baso % (Auto) 0.4 % Neut # (Auto) 1.36 L (1.4-6.5) K/uL Lymph # (Auto) 0.66 L (1.2-3.4) K/uL [place] # (Auto) 0.21 (0.11-0.59) K/uL Eos # (Auto) 0.01 (0-0.5) K/uL Baso # (Auto) 0.01 (0-0.2) K/uL Immature Gran # (Auto) 0.00 (0.00-0.02) K/uL D-Dimer (0-500) ug/L FEU VBG pH (7.36-7.41) VBG pCO2 (38-50) mmHg VBG pO2 mmHg VBG HCO3 mmol/L VBG O2 Saturation % VBG Base Excess mEq/L Barometric Pressure mm/Hg Sodium 141 (136-145) mmol/L Potassium 3.8 (3.5-5.1) mmol/L Chloride 103 (98-107) mmol/L Carbon Dioxide 30 (21-32) mmol/L Anion Gap 8 (3-11) BUN 17 (6-23) mg/dl Creatinine 0.59 L (0.6-1.2) mg/dl Est Cr Clr Drug Dosing 78.4 ml/min Est GFR ( Amer) 103.9 ml/min Est GFR (Non-Af Amer) 89.7 ml/min BUN/Creatinine Ratio 28.8 H (10-20) Glucose 151 H (70-99(Fasting)) mg/dl Lactate (0.4-2.0) mmol/L Calcium 8.4 L (8.5-10.1) mg/dl Phosphorus 2.2 L (2.5-4.9) mg/dl Magnesium 1.8 (1.7-2.4) mg/dl Total Bilirubin 0.5 (0.2-1.0) mg/dl AST 51 H (13-39) U/L ALT 56 H (7-52) U/L Alkaline Phosphatase 94 (34-104) U/L B-Natriuretic Peptide 18 (0-100) pg/ml Total Protein 7.4 (6.0-8.3) gm/dl Albumin 3.7 (3.4-5.0) gm/dl Globulin 3.7 (2.5-4.0) gm/dl Albumin/Globulin Ratio 1.0 (0.9-2) Procalcitonin (0-0.5) ng/ml SARS-CoV-2, RNA, NAAT (NEGATIVE) 04/03/21 04/03/21 04/03/21 Range/Units 20:02 20:02 19:40 WBC (4.8-10.8) K/uL RBC (4.2-5.4) M/uL Hgb (12.0-16.0) g/dL Hct (37-47) % MCV (80-100) fL MCH (25-34) pg MCHC (32-36) g/dL RDW Std Deviation (36.4-46.3) fL RDW Coeff of Jeffery (11.5-14.5) % Plt Count (130-400) K/uL MPV (7.4-10.4) fL Immature Gran % (Auto) % Neut % (Auto) % Lymph % (Auto) % [place] % (Auto) % Eos % (Auto) % Baso % (Auto) % Neut # (Auto) (1.4-6.5) K/uL Lymph # (Auto) (1.2-3.4) K/uL [place] # (Auto) (0.11-0.59) K/uL Eos # (Auto) (0-0.5) K/uL Baso # (Auto) (0-0.2) K/uL Immature Gran # (Auto) (0.00-0.02) K/uL D-Dimer 450 (0-500) ug/L FEU VBG pH 7.42 H (7.36-7.41) VBG pCO2 48 (38-50) mmHg VBG pO2 50 mmHg VBG HCO3 30 mmol/L VBG O2 Saturation 86.3 % VBG Base Excess 4.7 mEq/L Barometric Pressure 736.3 mm/Hg Sodium (136-145) mmol/L Potassium (3.5-5.1) mmol/L Chloride (98-107) mmol/L Carbon Dioxide (21-32) mmol/L Anion Gap (3-11) BUN (6-23) mg/dl Creatinine (0.6-1.2) mg/dl Est Cr Clr Drug Dosing ml/min Est GFR ( Amer) ml/min Est GFR (Non-Af Amer) ml/min BUN/Creatinine Ratio (10-20) Glucose (70-99(Fasting)) mg/dl Lactate (0.4-2.0) mmol/L Calcium (8.5-10.1) mg/dl Phosphorus (2.5-4.9) mg/dl Magnesium (1.7-2.4) mg/dl Total Bilirubin (0.2-1.0) mg/dl AST (13-39) U/L ALT (7-52) U/L Alkaline Phosphatase (34-104) U/L B-Natriuretic Peptide (0-100) pg/ml Total Protein (6.0-8.3) gm/dl Albumin (3.4-5.0) gm/dl Globulin (2.5-4.0) gm/dl Albumin/Globulin Ratio (0.9-2) Procalcitonin < 0.05 (0-0.5) ng/ml SARS-CoV-2, RNA, NAAT (NEGATIVE) 04/03/21 04/03/21 04/03/21 Range/Units 19:40 19:40 19:40 WBC (4.8-10.8) K/uL RBC (4.2-5.4) M/uL Hgb (12.0-16.0) g/dL Hct (37-47) % MCV (80-100) fL MCH (25-34) pg MCHC (32-36) g/dL RDW Std Deviation (36.4-46.3) fL RDW Coeff of Jeffery (11.5-14.5) % Plt Count (130-400) K/uL MPV (7.4-10.4) fL Immature Gran % (Auto) % Neut % (Auto) % Lymph % (Auto) % [place] % (Auto) % Eos % (Auto) % Baso % (Auto) % Neut # (Auto) (1.4-6.5) K/uL Lymph # (Auto) (1.2-3.4) K/uL [place] # (Auto) (0.11-0.59) K/uL Eos # (Auto) (0-0.5) K/uL Baso # (Auto) (0-0.2) K/uL Immature Gran # (Auto) (0.00-0.02) K/uL D-Dimer (0-500) ug/L FEU VBG pH (7.36-7.41) VBG pCO2 (38-50) mmHg VBG pO2 mmHg VBG HCO3 mmol/L VBG O2 Saturation % VBG Base Excess mEq/L Barometric Pressure mm/Hg Sodium 142 (136-145) mmol/L Potassium 3.2 L (3.5-5.1) mmol/L Chloride 101 (98-107) mmol/L Carbon Dioxide 34 H (21-32) mmol/L Anion Gap 7 (3-11) BUN 17 (6-23) mg/dl Creatinine 0.72 (0.6-1.2) mg/dl Est Cr Clr Drug Dosing 64.2 ml/min Est GFR ( Amer) 94.9 ml/min Est GFR (Non-Af Amer) 81.9 ml/min BUN/Creatinine Ratio 23.6 H (10-20) Glucose 102 H (70-99(Fasting)) mg/dl Lactate 1.2 (0.4-2.0) mmol/L Calcium 8.8 (8.5-10.1) mg/dl Phosphorus (2.5-4.9) mg/dl Magnesium 1.9 (1.7-2.4) mg/dl Total Bilirubin 0.6 (0.2-1.0) mg/dl AST 66 H (13-39) U/L ALT 66 H (7-52) U/L Alkaline Phosphatase 103 (34-104) U/L B-Natriuretic Peptide (0-100) pg/ml Total Protein 8.2 (6.0-8.3) gm/dl Albumin 4.0 (3.4-5.0) gm/dl Globulin 4.2 H (2.5-4.0) gm/dl Albumin/Globulin Ratio 1.0 (0.9-2) Procalcitonin (0-0.5) ng/ml SARS-CoV-2, RNA, NAAT POSITIVE A* (NEGATIVE) 04/03/21 Range/Units 19:40 WBC 4.56 L (4.8-10.8) K/uL RBC 5.69 H (4.2-5.4) M/uL Hgb 16.4 H (12.0-16.0) g/dL Hct 51.3 H (37-47) % MCV 90.2 (80-100) fL MCH 28.8 (25-34) pg MCHC 32.0 (32-36) g/dL RDW Std Deviation 42.9 (36.4-46.3) fL RDW Coeff of Jeffery 12.9 (11.5-14.5) % Plt Count 180 (130-400) K/uL MPV 9.9 (7.4-10.4) fL Immature Gran % (Auto) 0.0 % Neut % (Auto) 54.6 % Lymph % (Auto) 25.7 % [place] % (Auto) 18.9 % Eos % (Auto) 0.4 % Baso % (Auto) 0.4 % Neut # (Auto) 2.49 (1.4-6.5) K/uL Lymph # (Auto) 1.17 L (1.2-3.4) K/uL [place] # (Auto) 0.86 H (0.11-0.59) K/uL Eos # (Auto) 0.02 (0-0.5) K/uL Baso # (Auto) 0.02 (0-0.2) K/uL Immature Gran # (Auto) 0.00 (0.00-0.02) K/uL D-Dimer (0-500) ug/L FEU VBG pH (7.36-7.41) VBG pCO2 (38-50) mmHg VBG pO2 mmHg VBG HCO3 mmol/L VBG O2 Saturation % VBG Base Excess mEq/L Barometric Pressure mm/Hg Sodium (136-145) mmol/L Potassium (3.5-5.1) mmol/L Chloride (98-107) mmol/L Carbon Dioxide (21-32) mmol/L Anion Gap (3-11) BUN (6-23) mg/dl Creatinine (0.6-1.2) mg/dl Est Cr Clr Drug Dosing ml/min Est GFR ( Amer) ml/min Est GFR (Non-Af Amer) ml/min BUN/Creatinine Ratio (10-20) Glucose (70-99(Fasting)) mg/dl Lactate (0.4-2.0) mmol/L Calcium (8.5-10.1) mg/dl Phosphorus (2.5-4.9) mg/dl Magnesium (1.7-2.4) mg/dl Total Bilirubin (0.2-1.0) mg/dl AST (13-39) U/L ALT (7-52) U/L Alkaline Phosphatase (34-104) U/L B-Natriuretic Peptide (0-100) pg/ml Total Protein (6.0-8.3) gm/dl Albumin (3.4-5.0) gm/dl Globulin (2.5-4.0) gm/dl Albumin/Globulin Ratio (0.9-2) Procalcitonin (0-0.5) ng/ml SARS-CoV-2, RNA, NAAT (NEGATIVE) PG Care Time/CCT Total # of Minutes Spent Total Time Spent with Patient: Total time spent is greater than 50% in coordination of care (as documented) at patient's floor/unit and/or counseling patient: Coding Level of Care Code 92815 Subseq Hosp Care Lvl 3 Diagnoses COVID-19 U07.1 HTN, goal below 140/90 I10 CHANTELLE (generalized anxiety disorder) F41.1 Acid reflux disease K21.9 Fever R50.9 Hypoxia R09.02 Hypokalemia E87.6 Nausea vomiting and diarrhea R11.2; R19.7
[2021-04-04] MEDS ORDERED: REMDESIVIR 100 MG in SODIUM CHLORIDE 0.9% 230 ML IV SCH (20:00)
[2021-04-05 06:57] LABS: Basophils # (auto) 0.01 K/uL (0-0.2); Basophils % (auto) 0.2 %; Eosinophils # (auto) 0.01 K/uL (0-0.5); Eosinophils % (auto) 0.2 %; Hematocrit (blood only) 45.6 % (37-47); Hemoglobin 14.5 g/dL (12.0-16.0); Immature Granulocytes # (auto) 0.01 K/uL (0.00-0.02); Immature Granulocytes % (auto) 0.2 %; Lymphocytes # (auto) 1.17 K/uL (1.2-3.4); Lymphocytes % (auto) 18.8 %; Mean Corpuscular Hemoglobin 28.2 pg (25-34); Mean Corpuscular Hgb Conc 31.8 g/dL (32-36); Mean Corpuscular Volume 88.7 fL (80-100); Mean Platelet Volume 10.3 fL (7.4-10.4); Monocytes # (auto) 1.17 K/uL (0.11-0.59); Monocytes % (auto) 18.8 %; Neutrophils # (auto) 3.87 K/uL (1.4-6.5); Neutrophils % (auto) 61.8 %; Platelet Count 219 K/uL (130-400); RDW Coefficient of Variation 12.8 % (11.5-14.5); RDW Standard Deviation 41.6 fL (36.4-46.3); Red Blood Count 5.14 M/uL (4.2-5.4); White Blood Count 6.24 K/uL (4.8-10.8)
[2021-04-05 07:19] LABS: Albumin Level 3.4 gm/dl (3.4-5.0); BUN Creatinine Ratio 48.1 (10-20); Bilirubin,Total 0.4 mg/dl (0.2-1.0); Calcium 8.7 mg/dl (8.5-10.1); Creatinine Clr Calc Pharmacy 85.6 ml/min; Est GFR (Non-African American) 92.3 ml/min; Globulin 3.3 gm/dl (2.5-4.0); Phosphorus 2.8 mg/dl (2.5-4.9); Potassium 3.4 mmol/L (3.5-5.1); Total Protein 6.7 gm/dl (6.0-8.3)
[2021-04-05] MEDS: lisinopril 20 MG TAB PO SCH (07:55)
[2021-04-05] MEDS: ENOXAPARIN INJ 40 MG/0.4 ML SYR SQ SCH ×2 (07:55→22:00)
[2021-04-05] MEDS: dexAMETHasone 6 MG in SYRINGE 0 ML IV SCH (07:55)
[2021-04-05] MEDS: ASPIRIN 81 MG ECTAB PO SCH (07:56)
[2021-04-05] MEDS: amLODIPine BESYLATE 5 MG TAB PO SCH (07:56)
[2021-04-05] MEDS ORDERED: POTASSIUM CHLORIDE CRTAB 20 MEQ TABCR PO STA (09:14)
[2021-04-05] MEDS: ARTIFICIAL TEARS OP PRN ×2 (12:31→22:04)
--- NOTE | 2021-04-05 12:35 | Hospitalist Progress Note ---
Date of Service April 05, 2021 Assessment & Plan (1) COVID-19: Plan: Joelle Faith is a 75y/o F w/ PMH significant for hypertension, anxiety, and GERD; who presents for concerns of 2 weeks of worsening cough, congestion, diarrhea, and vomiting. COVID-19: With Covid-19 pneumonitis and acute respiratory failure with hypoxia -worsening symptoms over the last two weeks With nausea/vomiting/diarrhea-now much improved Had a fever on admission which is now resolved -COVID-19 positive on admission requiring oxygen supplementation to maintain oxygen saturations >90% Now on 2-3 l nasal cannula to keep pulse ox greater than 92% -Continue dexamethasone 6 mg IV once daily-continue this for total of 10 days -started on remdesivir upon admission but she is at least 2 weeks into her illness and this would not be effective-discontinued after 1 dose -CXR demonstrating mild bilateral pulmonary edema but this could also be interstitial pneumonitis -Continue guaifenesin DM as needed for cough -COVID-19 DVT prophylaxis with Lovenox 40 mg twice daily (2) Nausea vomiting and diarrhea: Plan: Nausea/vomiting/diarrhea: -Likely secondary to Covid-19 -With fevers, no abdominal pain Now resolved, is tolerating p.o., no loose stools since the morning of 04/04 -Check stool studies if has further diarrhea -Zofran as needed -Imodium as needed if C. difficile negative (3) Hypoxia: Plan: As above, secondary to Covid-19 pneumonitis (4) Fever: Plan: -Febrile on admission to 38.1C -likely secondary to COVID-19 infection -negative WBC, negative pro-adin, UA negative for infection, no abdominal pain -blood cultures drawn in ED-no growth to date -no abx at this time although low threshold to start them if fevers not improving -Check stool studies if continues to have diarrhea as above (5) HTN, goal below 140/90: Plan: Blood pressures controlled -continue home regimen of lisinopril 20mg daily and amlodipine 5 mg daily Continue aspirin 81 mg (6) CHANTELLE (generalized anxiety disorder): Plan: No acute issues -continue home lorazepam 0.5mg TID PRN for anxiety (7) Acid reflux disease: Plan: -continue PPI as needed (8) Hypokalemia: Plan: Potassium still mildly low today Give potassium chloride 20 mEq p.o. x1 -Follow BMP and magnesium in the morning Plan: DVT prophylaxis Lovenox 40 mg SQ every 12 hours Disposition-possible discharge to home tomorrow if continues to improve, will need a two-step walk test prior to discharge Admission and Anticipated Discharge Date Admission Date: April 03, 2021 Subjective Feeling better, no further N/V/D since yesterday AM. No CP or OSB. Remains on O2 but POx 94% on 2L Was OOB to chair and ambulated to bathroom, feels stronger, no lightheadedness Tele with NSR< rates 60-70s Review of Systems Review of Systems: All systems reviewed & are unremarkable except as noted in HPI & below Physical Exam Constitutional: WD/WN, vitals as above Eyes: + anicteric sclerae Neck: trachea midline, no thyromegaly Respiratory: normal respiratory effort and + cough Auscultation: + crackles (Right lower lung field); no wheezes Cardiovascular: RRR, no murmur, no edema Chest (Breasts): Chest: normal inspection of chest Gastrointestinal (Abdomen): normal bowel sounds, soft, nontender, no hepatosplenomegaly Musculoskeletal: Extremities: extremities normal to inspection; no cyanosis and no clubbing Skin: no rashes, warm and dry Neurologic: moves all extremities and awake; no focal motor deficits Psychiatric: A+Ox3, euthymic affect Lymphatic: no lymphedema Results & Data Results & Data ([facility]) Vital Signs (Past 12 Hours) Vital Signs Temp Pulse Pulse Resp BP Pulse Ox 04/05/21 11:35 37.0 C 72 18 100/67 94 04/05/21 08:02 36.6 C 78 18 93/55 L 96 04/05/21 07:32 74 04/05/21 02:45 36.5 C 86 18 107/61 93 04/05/21 01:55 88 Laboratory Results 04/05/21 04/05/21 Range/Units 06:22 06:22 WBC 6.24 (4.8-10.8) K/uL RBC 5.14 (4.2-5.4) M/uL Hgb 14.5 (12.0-16.0) g/dL Hct 45.6 (37-47) % MCV 88.7 (80-100) fL MCH 28.2 (25-34) pg MCHC 31.8 L (32-36) g/dL RDW Std Deviation 41.6 (36.4-46.3) fL RDW Coeff of Jeffery 12.8 (11.5-14.5) % Plt Count 219 (130-400) K/uL MPV 10.3 (7.4-10.4) fL Immature Gran % (Auto) 0.2 % Neut % (Auto) 61.8 % Lymph % (Auto) 18.8 % [place] % (Auto) 18.8 % Eos % (Auto) 0.2 % Baso % (Auto) 0.2 % Neut # (Auto) 3.87 (1.4-6.5) K/uL Lymph # (Auto) 1.17 L (1.2-3.4) K/uL [place] # (Auto) 1.17 H (0.11-0.59) K/uL Eos # (Auto) 0.01 (0-0.5) K/uL Baso # (Auto) 0.01 (0-0.2) K/uL Immature Gran # (Auto) 0.01 (0.00-0.02) K/uL Sodium 143 (136-145) mmol/L Potassium 3.4 L (3.5-5.1) mmol/L Chloride 107 (98-107) mmol/L Carbon Dioxide 30 (21-32) mmol/L Anion Gap 6 (3-11) BUN 26 H (6-23) mg/dl Creatinine 0.54 L (0.6-1.2) mg/dl Est Cr Clr Drug Dosing 85.6 ml/min Est GFR ( Amer) 107.0 ml/min Est GFR (Non-Af Amer) 92.3 ml/min BUN/Creatinine Ratio 48.1 H (10-20) Glucose 106 H (70-99(Fasting)) mg/dl Calcium 8.7 (8.5-10.1) mg/dl Phosphorus 2.8 (2.5-4.9) mg/dl Magnesium 2.0 (1.7-2.4) mg/dl Total Bilirubin 0.4 (0.2-1.0) mg/dl AST 27 (13-39) U/L ALT 40 (7-52) U/L Alkaline Phosphatase 81 (34-104) U/L Total Protein 6.7 (6.0-8.3) gm/dl Albumin 3.4 (3.4-5.0) gm/dl Globulin 3.3 (2.5-4.0) gm/dl Albumin/Globulin Ratio 1.0 (0.9-2) PG Care Time/CCT Total # of Minutes Spent Total Time Spent with Patient: Total time spent is greater than 50% in coordination of care (as documented) at patient's floor/unit and/or counseling patient: Coding Level of Care Code 01449 Subseq Hosp Care Lvl 3 Diagnoses COVID-19 U07.1 HTN, goal below 140/90 I10 CHANTELLE (generalized anxiety disorder) F41.1 Acid reflux disease K21.9 Fever R50.9 Hypoxia R09.02 Hypokalemia E87.6 Nausea vomiting and diarrhea R11.2; R19.7
[2021-04-06] MEDS: guaiFENesin/DEXTROM SYRUP 200MG/20MG 10ML UDC PO PRN (05:59)
[2021-04-06 06:27] LABS: Basophils # (auto) 0.01 K/uL (0-0.2); Basophils % (auto) 0.1 %; Eosinophils # (auto) 0.01 K/uL (0-0.5); Eosinophils % (auto) 0.1 %; Hematocrit (blood only) 43.5 % (37-47); Hemoglobin 13.8 g/dL (12.0-16.0); Immature Granulocytes # (auto) 0.02 K/uL (0.00-0.02); Immature Granulocytes % (auto) 0.3 %; Lymphocytes # (auto) 1.21 K/uL (1.2-3.4); Lymphocytes % (auto) 17.8 %; Mean Corpuscular Hemoglobin 28.2 pg (25-34); Mean Corpuscular Hgb Conc 31.7 g/dL (32-36); Mean Corpuscular Volume 88.8 fL (80-100); Mean Platelet Volume 10.4 fL (7.4-10.4); Monocytes # (auto) 1.02 K/uL (0.11-0.59); Neutrophils # (auto) 4.53 K/uL (1.4-6.5); Neutrophils % (auto) 66.7 %; Platelet Count 235 K/uL (130-400); RDW Coefficient of Variation 12.9 % (11.5-14.5); RDW Standard Deviation 41.7 fL (36.4-46.3)
[2021-04-06 06:58] LABS: Alanine Aminotransferase 33 U/L (7-52); Albumin Level 3.2 gm/dl (3.4-5.0); Alkaline Phosphatase 72 U/L (34-104); Anion Gap 5 (3-11); Aspartate Aminotransferase 23 U/L (13-39); BUN Creatinine Ratio 55.8 (10-20); Bilirubin,Total 0.5 mg/dl (0.2-1.0); Blood Urea Nitrogen 29 mg/dl (6-23); Calcium 8.5 mg/dl (8.5-10.1); Carbon Dioxide 30 mmol/L (21-32); Chloride 107 mmol/L (98-107); Creatinine Clr Calc Pharmacy 89.6 ml/min; Est GFR (African American) 108.3 ml/min; Est GFR (Non-African American) 93.5 ml/min; Globulin 3.2 gm/dl (2.5-4.0); Glucose 95 mg/dl (70-99(Fasting)); Magnesium 1.9 mg/dl (1.7-2.4); Potassium 3.7 mmol/L (3.5-5.1); Sodium 142 mmol/L (136-145); Total Protein 6.4 gm/dl (6.0-8.3)
[2021-04-06 07:22] LABS: C Reactive Protein < 0.50 mg/dl (0-0.5)
[2021-04-06] MEDS: ASPIRIN 81 MG ECTAB PO SCH (08:15)
[2021-04-06] MEDS: dexAMETHasone 6 MG in SYRINGE 0 ML IV SCH (08:15)
[2021-04-06] MEDS: amLODIPine BESYLATE 5 MG TAB PO SCH (08:15)
[2021-04-06] MEDS: lisinopril 20 MG TAB PO SCH (08:15)
[2021-04-06] MEDS: ENOXAPARIN INJ 40 MG/0.4 ML SYR SQ SCH ×2 (11:00→21:37)
[2021-04-06] MEDS ORDERED: MELATONIN 3 MG TAB PO PRN (19:27)
--- NOTE | 2021-04-06 19:27 | Hospitalist Progress Note ---
Date of Service April 06, 2021 Assessment & Plan (1) COVID-19: Plan: Joelle Faith is a 75y/o F w/ PMH significant for hypertension, anxiety, and GERD; who presents for concerns of 2 weeks of worsening cough, congestion, diarrhea, and vomiting. COVID-19: With Covid-19 pneumonitis and acute respiratory failure with hypoxia -worsening symptoms over the last two weeks With nausea/vomiting/diarrhea-now Resolved Had a fever on admission which is now resolved -COVID-19 positive on admission requiring oxygen supplementation to maintain oxygen saturations >90% Now being down to 1 L nasal cannula to keep pulse ox greater than 92% -Continue dexamethasone 6 mg IV once daily-continue this for total of 10 days -started on remdesivir upon admission but she is at least 2 weeks into her illness and this would not be effective-discontinued after 1 dose -CXR demonstrating mild bilateral pulmonary edema but this could also be interstitial pneumonitis -Continue guaifenesin DM as needed for cough -COVID-19 DVT prophylaxis with Lovenox 40 mg twice daily -Continues with fatigue and does not feel ready for discharge to home yet (2) Nausea vomiting and diarrhea: Plan: Nausea/vomiting/diarrhea-Now resolved -Likely secondary to Covid-19 -With fevers, no abdominal pain Now resolved, is tolerating p.o., no loose stools since the morning of 04/04 -Check stool studies if has further diarrhea -Zofran as needed -Imodium as needed if C. difficile negative (3) Hypoxia: Plan: As above, secondary to Covid-19 pneumonitis (4) Fever: Plan: -Febrile on admission to 38.1C -likely secondary to COVID-19 infection -negative WBC, negative pro-adin, UA negative for infection, no abdominal pain -blood cultures drawn in ED-no growth to date -no abx at this time although low threshold to start them if fevers not improving -Check stool studies if continues to have diarrhea as above (5) HTN, goal below 140/90: Plan: Blood pressures controlled -continue home regimen of lisinopril 20mg daily and amlodipine 5 mg daily Continue aspirin 81 mg (6) CHANTELLE (generalized anxiety disorder): Plan: No acute issues -continue home lorazepam 0.5mg TID PRN for anxiety (7) Acid reflux disease: Plan: -continue PPI as needed (8) Hypokalemia: Plan: Now resolved after replacement Plan: DVT prophylaxis Lovenox 40 mg SQ every 12 hours Disposition-possible discharge to home tomorrow if continues to improve, will need a two-step walk test prior to discharge Admission and Anticipated Discharge Date Admission Date: April 03, 2021 Subjective Feeling worse today, very fatigued, was unable to sleep well last night. Re magda on 1 L nasal cannula. Not coughing much. No nausea or vomiting, no diarrhea. No abdominal pain. Is making urine. Review of Systems Review of Systems: All systems reviewed & are unremarkable except as noted in HPI & below Physical Exam Constitutional: WD/WN, vitals as above Eyes: + anicteric sclerae ENMT: external ear and nose normal, oropharynx normal Neck: trachea midline, no thyromegaly Respiratory: normal respiratory effort, lungs clear to auscultation Cardiovascular: RRR, no murmur, no edema Chest (Breasts): Chest: normal inspection of chest Gastrointestinal (Abdomen): normal bowel sounds, soft, nontender, no hepatosplenomegaly Musculoskeletal: Extremities: extremities normal to inspection; no cyanosis and no clubbing Skin: no rashes, warm and dry Neurologic: moves all extremities and awake; no focal motor deficits Psychiatric: A+Ox3, euthymic affect Lymphatic: no lymphedema Results & Data Results & Data ([facility]) Vital Signs (Past 12 Hours) Vital Signs Temp Pulse Resp BP BP Pulse Ox 04/06/21 19:06 36.5 C 89 18 105/69 92 04/06/21 15:24 36.6 C 92 H 16 91/58 L 97 04/06/21 11:35 36.5 C 70 16 98/65 L 92 04/06/21 07:46 36.6 C 75 18 102/64 93 Laboratory Results 04/06/21 04/06/21 Range/Units 05:45 05:45 WBC 6.80 (4.8-10.8) K/uL RBC 4.90 (4.2-5.4) M/uL Hgb 13.8 (12.0-16.0) g/dL Hct 43.5 (37-47) % MCV 88.8 (80-100) fL MCH 28.2 (25-34) pg MCHC 31.7 L (32-36) g/dL RDW Std Deviation 41.7 (36.4-46.3) fL RDW Coeff of Jeffery 12.9 (11.5-14.5) % Plt Count 235 (130-400) K/uL MPV 10.4 (7.4-10.4) fL Immature Gran % (Auto) 0.3 % Neut % (Auto) 66.7 % Lymph % (Auto) 17.8 % [place] % (Auto) 15.0 % Eos % (Auto) 0.1 % Baso % (Auto) 0.1 % Neut # (Auto) 4.53 (1.4-6.5) K/uL Lymph # (Auto) 1.21 (1.2-3.4) K/uL [place] # (Auto) 1.02 H (0.11-0.59) K/uL Eos # (Auto) 0.01 (0-0.5) K/uL Baso # (Auto) 0.01 (0-0.2) K/uL Immature Gran # (Auto) 0.02 (0.00-0.02) K/uL Sodium 142 (136-145) mmol/L Potassium 3.7 (3.5-5.1) mmol/L Chloride 107 (98-107) mmol/L Carbon Dioxide 30 (21-32) mmol/L Anion Gap 5 (3-11) BUN 29 H (6-23) mg/dl Creatinine 0.52 L (0.6-1.2) mg/dl Est Cr Clr Drug Dosing 89.6 ml/min Est GFR ( Amer) 108.3 ml/min Est GFR (Non-Af Amer) 93.5 ml/min BUN/Creatinine Ratio 55.8 H (10-20) Glucose 95 (70-99(Fasting)) mg/dl Calcium 8.5 (8.5-10.1) mg/dl Magnesium 1.9 (1.7-2.4) mg/dl Total Bilirubin 0.5 (0.2-1.0) mg/dl AST 23 (13-39) U/L ALT 33 (7-52) U/L Alkaline Phosphatase 72 (34-104) U/L C-Reactive Protein < 0.50 (0-0.5) mg/dl Total Protein 6.4 (6.0-8.3) gm/dl Albumin 3.2 L (3.4-5.0) gm/dl Globulin 3.2 (2.5-4.0) gm/dl Albumin/Globulin Ratio 1.0 (0.9-2) PG Care Time/CCT Total # of Minutes Spent Total Time Spent with Patient: Total time spent is greater than 50% in coordination of care (as documented) at patient's floor/unit and/or counseling patient: Coding Level of Care Code 21327 Subseq Hosp Care Lvl 2 Diagnoses COVID-19 U07.1 Nausea vomiting and diarrhea R11.2; R19.7 Hypoxia R09.02 Fever R50.9 HTN, goal below 140/90 I10 CHANTELLE (generalized anxiety disorder) F41.1 Acid reflux disease K21.9 Hypokalemia E87.6
[2021-04-07] MEDS: dexAMETHasone 6 MG in SYRINGE 0 ML IV SCH (07:16)
[2021-04-07] MEDS: lisinopril 20 MG TAB PO SCH (07:17)
[2021-04-07] MEDS: amLODIPine BESYLATE 5 MG TAB PO SCH (07:17)
[2021-04-07] MEDS: ASPIRIN 81 MG ECTAB PO SCH (07:17)
[2021-04-07] MEDS: ENOXAPARIN INJ 40 MG/0.4 ML SYR SQ SCH (10:05)
--- NOTE | 2021-04-07 12:43 | Discharge Summary ---
Date of Service April 07, 2021 Admission HPI Per Admitting Provider Joelle Faith is a 75y/o F w/ PMH significant for hypertension, anxiety, GERD, and Breast cancer s/p lumpectomy in 2019; who presents for concerns of 2 weeks of worsening cough, congestion, diarrhea, and vomiting. She is not vaccinated, and was relatively un-surprised by the COVID-19 diagnosis. Recognizes the need to get vaccinated once she has improved and is able to get out of the hospital. Principal Diagnosis COVID 19 pneumonia Acute hypoxic respiratory failure Discharge Exam General: well developed, well nourished, no acute distress, comfortable Neck: supple, trachea midline, normal thyroid Lungs: clear to auscultation bilaterally, normal respiratory effort, no accessory muscle use, no distress Heart: regular S1 and S2, no murmur, peripheral pulses normal, capillary refill normal, no edema Abdomen: soft, NT, ND, + BS, no hepatomegaly, normal to percussion Extremities: normal in appearance, no cyanosis, no petechiae, strength is 5/5 bilaterally Neuro: awake, cooperative, moves all extremities, no focal motor deficits, CN II-XII intact, sensation in extremities intact, normal speech Skin: warm, dry, no rash, normal turgor Psych: Awake, alert oriented x 3, euthymic affect Discharge Data Allergies Allergy/AdvReac Type Severity Reaction Status Date / Time No Known Drug Allergies Allergy Unknown Verified 04/03/21 19:54 Consultations 04/03/21 20:50 ED Decision to Admit Stat Hospital Course (1) COVID-19: Joelle Faith is a 75y/o F w/ PMH significant for hypertension, anxiety, and GERD; who presents for concerns of 2 weeks of worsening cough, congestion, diarrhea, and vomiting. COVID-19: With Covid-19 pneumonitis and acute respiratory failure with hypoxia -worsening symptoms over the last two weeks With nausea/vomiting/diarrhea-now Resolved Had a fever on admission which is now resolved -responded well to dexamethasone 6mg IV daily, will transition to PO and complete 5 more days down to room air at rest, needs 2L on exertion, home oxygen arranged given Lovenox while admitted, change to Xarelto 10mg daily, finish 30 days for DVT prophylaxis (2) Nausea vomiting and diarrhea: Nausea/vomiting/diarrhea-Now resolved -Likely secondary to Covid-19 -With fevers, no abdominal pain Now resolved, is tolerating p.o., no loose stools since the morning of 04/04 (3) Hypoxia: As above, secondary to Covid-19 pneumonitis stable on room air at rest, needs 2L on exertion home oxygen arranged (4) Fever: -Febrile on admission to 38.1C -likely secondary to COVID-19 infection resolved for a few days (5) HTN, goal below 140/90: Blood pressures controlled -continue home regimen of lisinopril 20mg daily and amlodipine 5 mg daily Continue aspirin 81 mg (6) CHANTELLE (generalized anxiety disorder): No acute issues -continue home lorazepam 0.5mg TID PRN for anxiety (7) Acid reflux disease: -continue PPI as needed (8) Hypokalemia: Now resolved after replacement DVT prophylaxis Lovenox 40 mg SQ every 12 hours, change to Xarelto Total Time Total Time Spent Total Time Spent (In Minutes): 33 minutes Total Time Includes: Examination of the Patient, Discharge Planning and Medication Reconciliation Discharge Plan Discharge Items Patient Disposition: Home - Self-Care Reason For Visit: COVID-19 Discharge Diagnosis: COVID 19 pneumonia Acute hypoxic respiratory failure Condition on Discharge: Good Goals: complete course of dexamethasone wean off oxygen improve strength and mobility Activity: Resume your previous activity Weightbearing: Full weightbearing Non-emergency contact: Primary Care Provider Call non-emergency contact if: you have any medication questions and your sympt oms worsen Follow-up/Referrals: Gabrielle Blackwell MD [Primary Care Provider] - 04/18/21 12:00 pm Diet: Regular Addtl Attending Provider Instructions: Medications - DEXAMETHASONE: 6mg daily for 5 more days for treatment of COVID pneumonia - XARELTO: 10mg daily for 30 days to prevent blood clots associated with COVID infection, this is low dose COVID 19 pneumonia stable on room air at rest, need 2L on exertion, expect you will come off oxygen after a week complete course of dexamethasone and Xarelto stay well rested, well nourished, well hydrated follow up with PCP on 04/18 Pending Studies at Discharge: No Stand-Alone Forms: My [employer] [place], Smoking Cessation Medications and DC Order Prescriptions: New dexamethasone 4 mg tablet 6 mg PO DAILY 5 Days Qty: 8 RF: 0 Xarelto 10 mg tablet 10 mg PO DAILY Qty: 30 RF: 0 Continued lisinopril 10 mg tablet 20 mg PO QAM Qty: 180 RF: 1 amlodipine 5 mg tablet 5 mg PO DAILY Qty: 90 RF: 1 lorazepam 0.5 mg tablet 0.5 mg PO TID PRN (Reason: Anxiety) Qty: 90 RF: 0 multivitamin [Daily Multi-Vitamin] tablet 1 tab PO DAILY RF: 0 cholecalciferol (vitamin D3) 2,000 unit tablet 2,000 units PO DAILY RF: 0 cyanocobalamin (vitamin B-12) 100 mcg tablet 100 mcg PO DAILY RF: 0 aspirin [Aspirin Low Dose] 81 mg Tablet,Delayed Release (Dr/Ec) 81 mg PO DAILY RF: 0 omeprazole 40 mg capsule,delayed release(DR/EC) 40 mg PO DAILY PRN (Reason: Heartburn) RF: 0 Discharge Orders: Discharge Order (Routine); Ordered 04/07/21 Ordered By: Darius Toledo Admission Data Admit Date/Time: 04/03/21 21:39 Attending Provider: Darius Toledo Admit Provider: Gerald De Los Santos Primary Care Provider: Gabrielle Blackwell Other Providers: Des Hilton Coding Level of Care Code D/C DAY MANAGEMENT >30 MINS Diagnoses COVID-19 U07.1 Nausea vomiting and diarrhea R11.2; R19.7 Hypoxia R09.02 Fever R50.9 HTN, goal below 140/90 I10 CHANTELLE (generalized anxiety disorder) F41.1 Acid reflux disease K21.9 Hypokalemia E87.6
--- NOTE | 2021-04-08 13:41 | Billing Data ---
Date of Service April 03, 2021 Coding Level of Care Code 56573 Initial Inpt Care Lvl 3
== END 2021-04-06 20:00 | disposition home or self-care (01) | DRG 177 ==
LOC: ED 15:57 → EDINP 21:39 → SUATTDRO 21:39 → 2W 04-04 19:20

== ENCOUNTER 2022-10-04 14:34 | Inpatient (IN) ==
[2022-10-04 15:28] LABS: Basophils # (auto) 0.09 K/uL (0-0.2); Eosinophils # (auto) 0.06 K/uL (0-0.50); Eosinophils % (auto) 0.7 %; Hematocrit (blood only) 43.6 % (37.0-47.0); Hemoglobin 14.1 g/dl (12.0-16.0); Immature Granulocytes # (auto) 0.03 K/uL (0.01-0.20); Immature Granulocytes % (auto) 0.3 %; Lymphocytes # (auto) 0.73 K/uL (1.2-3.4); Lymphocytes % (auto) 8.3 %; Mean Corpuscular Hemoglobin 28.1 pg (25.0-34.0); Mean Corpuscular Hgb Conc 32.3 g/dL (32.0-36.0); Mean Platelet Volume 9.7 fL (9.4-12.4); Monocytes # (auto) 1.03 K/uL (0.11-0.59); Monocytes % (auto) 11.7 %; Neutrophils # (auto) 6.83 K/uL (1.40-6.50); Platelet Count 267 K/uL (130-400); RDW Coefficient of Variation 12.7 % (11.5-14.5); Red Blood Count 5.01 M/uL (4.20-5.40); White Blood Count 8.77 K/ul (4.8-10.8)
[2022-10-04 15:34] LABS: Albumin Globulin Ratio 1.1 (0.9-2); Albumin Level 4.1 gm/dl (3.4-5.0); BUN Creatinine Ratio 16.4 (10-20); Bilirubin,Total 0.5 mg/dl (0.2-1.0); Calcium 9.2 mg/dl (8.6-10.3); Creatinine Clr Calc Pharmacy 61.9 ml/min; Est GFR (African American) 92.1 ml/min; Est GFR (Non-African American) 79.4 ml/min; Globulin 3.8 gm/dl (2.5-4.0); Potassium 4.1 mmol/L (3.5-5.1); Total Protein 7.9 gm/dl (6.0-8.3)
[2022-10-04 15:39] LABS: Appearance Urine Clear (Clear); Bacteria Urine Automated Negative (Negative); Blood Urine Negative (Negative); Color Urine Dark Yellow; Epithelial Cell Urine Auto >30 /lpf (0-5); Glucose Urine UA Negative (Negative); Ketones Urine Trace (Negative); Leukocyte Esterase Urine 1+ (Negative); Nitrite Urine Negative (Negative); Protein Urine Trace (Negative); RBC Urine Automated 0-4 /hpf (0-4); Specific Gravity Urine 1.026 (1.000-1.030); Urobilinogen Urine Negative (Negative); pH Urine 5.5 (4.5-7.5)
[2022-10-04 15:46] LABS: Bilirubin Urine 1+ (Negative)
[2022-10-04 15:47] LABS: Influenza A virus by PCR Negative (Neg); Influenza B virus by PCR Negative (Neg); RSV by PCR Negative (Neg)
[2022-10-04 15:54] LABS: SARS CoV2 RNA(COVID-19) Ceph POSITIVE (Negative)
--- NOTE | 2022-10-04 16:00 | XRay Report ---
SINGLE VIEW CHEST CLINICAL HISTORY: Dyspnea FINDINGS: An AP, portable, upright chest radiograph is compared to study dated 04/03/2021. The heart i s enlarged. There is prominence of the pulmonary vasculature. Scarring/atelectasis is seen at the sanjay g bases. No airspace consolidation or large pleural effusion is identified. No pneumothorax is seen. The skeletal structures are osteopenic. The bony thorax is grossly intact. IMPRESSION: 1. Cardiomegaly with prominence of the pulmonary vasculature. Correlate clinically for evidence of mi ld congestive change. 2. No airspace consolidation or large pleural effusion is identified. ACT 112: Negative or not required by law. Electronically signed by: Wilmer Collazo M.D. 10/04/2022 3:58 PM
[2022-10-04] MEDS ORDERED: DEXAMETHASONE SOD INJ 4 MG/ML VIAL IV STA (16:22)
[2022-10-04] MEDS ORDERED: ALBUT/IPRATROP 3MG/0.5MG NEB 3 ML VIAL NEB STA (16:22)
[2022-10-04] MEDS ORDERED: diphenhydrAMINE 50 MG/ML VIAL IV STA (17:04)
[2022-10-04] MEDS ORDERED: methylPREDNISolone 125 MG/2 ML VIAL IV STA (17:04)
[2022-10-04] MEDS ORDERED: IOVERSOL 350 MG 125mL Prefilled Syringe IV ONE (17:16)
--- NOTE | 2022-10-04 17:38 | Emergency Department Note ---
Impression & Plan Tachycardia, Hypoxia, COVID-19 ED Provider Note CHIEF COMPLAINT: Shortness of breath, fever HISTORY OF PRESENT ILLNESS: This 77-year-old female patient with past medical history of generalized anxiety, hypertension, left breast lumpectomy and GERD presents to the emergency department with complaints of fever, cough and shortness of breath. She did have a positive home COVID test. The patient recently traveled to [place] by plane and took a bus tour when she arrived. Patient does have a remote history of DVT but does not take any blood thinners and nothing recently. She denies any pain with deep breath, but states she feels winded. REVIEW OF SYSTEMS: A review of systems was performed with positives and pertinent negatives listed in the history of present illness. 10 systems were reviewed and are otherwise negative. ALLERGIES: see below MEDICATIONS: see below PMH: see below SOCIAL HISTORY: see below DDx: Viral syndrome, pharyngitis, pneumonia, COVID, influenza, urinary tract infection, PE, DVT as well as other pathologies. PHYSICAL EXAM: Vital signs reviewed. General: Well-appearing 77-year-old female, in no significant distress. HEENT: No scleral icterus, PERRLA, neck supple. Atraumatic. Cardiovascular: Tachycardic rate, regular rhythm, no extra sounds. Pulmonary: Clear to auscultation bilaterally, normal work of breathing. Abdomen: Soft, nontender, nondistended, positive bowel sounds. Musculoskeletal: Atraumatic, no peripheral edema. Neurologic: Patient awake alert and oriented x 3, speech is clear Skin: Warm, dry, no rash EMERGENCY DEPARTMENT COURSE/MDM: This patient was evaluated and appeared to be in no significant distress. External medical records were reviewed. IV access was obtained and laboratory work was drawn. Patient was hydrated with normal saline solution. Patient was given acetaminophen 1 g by mouth for pain. The patient was placed on the design drafter and noted to be in a sinus tachycardia. Chest x-ray is clear. CT imaging of the chest was performed to rule out PE and this study is negative. Dopplers of the lower extremities are negative for clot. Laboratory work confirms COVID-19. Patient was given IV dex amethasone, DuoNeb treatment and placed on supplemental nasal cannula oxygen. Given her hypoxia and tachycardia, is felt the patient should be admitted for further management. She was informed of the findings and plan and agreed. MONITORING: An order for cardiac monitoring was placed and the patient is noted to be in a sinus tachycardia at 112 beats per minute. RADIOLOGY: Chest x-ray to my interpretation reveals no evidence of focal lung consolidation or failure, otherwise defer to radiology. Chest CT per radiology reveals no evidence of acute pulmonary emboli. Please see final read below. Ultrasounds of the bilateral lower extremities are negative for DVT, please see final reads below. EKG: To my interpretation reveals a sinus tachycardia at 102 bpm. QTc is 435. Normal ST segments, no PVC, no PAC. Cannot rule out previous inferior infarct. 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 Nausea vomiting and diarrhea 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 Post herpetic neuralgia Urinary incontinence in female Vitamin D deficiency Surgical History H/O rotator cuff surgery Left History of anesthesia reaction SLOW TO WAKE UP - REPORTS THAT THEY'VE HAD TO USE NARCAN TWICE BEFORE History of appendectomy History of bladder surgery "Lift" History of cholecystectomy History of facelift History of herniorrhaphy History of hysterectomy History of tubal ligation Hx of BSO (bilateral salpingo-oophorectomy) Hx of cataract surgery Bilateral;Had laser surgery as well Hx of colonoscopy S/P lumpectomy, left breast With SLN biopsy on 02/16/2020 Family History Mother Breast cancer Parkinsons disease Brother Colorectal cancer Father Heart disease Brother No problems noted. Sister No problems noted. Sister Alzheimer disease Sister No problems noted. Son MVA (motor vehicle accident) Son No problems noted. Son No problems noted. Son No problems noted. 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 How many Children do You have: 4 Feels Safe at Home: Yes Childhood Exposure to Second-Hand Smoke: No Diet: regular caffeine: Yes (4 cups/day) during the past year weight has: remained stable Dental Care, Regularly: Yes Physical Activity Frequency: Daily Seatbelt Use: always Sunscreen Use: Yes Assistive Devices: None Allergies Allergies Allergy/AdvReac Type Severity Reaction Status Date / Time No Known Drug Allergies Allergy Unknown Verified 10/04/22 19:40 Home Meds Home Medications Medication Instructions Recorded Confirmed multivitamin (Daily Multi-Vitamin 1 tab PO DAILY 07/30/18 10/04/22 tablet) cholecalciferol (vitamin D3) 50 2,000 units PO DAILY 02/16/19 10/04/22 mcg (2,000 unit) tablet cyanocobalamin (vitamin B-12) 100 100 mcg PO DAILY 02/16/19 10/04/22 mcg tablet Previous Rx's Medication Instructions Recorded amlodipine 5 mg tablet 5 mg PO DAILY #90 tabs 04/26/21 omeprazole 40 mg capsule,delayed 40 mg PO DAILY PRN Heartburn #90 05/03/21 release caps lorazepam 0.5 mg tablet 0.5 mg PO TID PRN Anxiety #90 tabs 08/13/22 lisinopril 10 mg tablet 20 mg PO QAM #180 tabs 09/16/22 albuterol sulfate 90 mcg/actuation 2 inh inhalation Q4H PRN shortness 10/08/22 aerosol inhaler (Ventolin HFA) of breath or wheezing or cough #6.7 grams amoxicillin 875 mg-potassium 1 tab PO BID 3 days #6 tabs 10/08/22 clavulanate 125 mg tablet aspirin 81 mg tablet,delayed 81 mg PO BID #60 tabs 10/08/22 release (Ubaldo Low Dose Aspirin) dexamethasone 6 mg tablet 6 mg PO DAILY 3 days #3 tabs 10/08/22 inhalational spacing device #1 ea 10/08/22 (Aerochamber Plus Flow-Vu) Results & Data (ED) Vital Signs Vital Signs - 24 hr 10/04/22 14:36 10/04/22 15:44 10/04/22 15:47 Temperature 37.5 C Temperature Source Temporal Artery Scan Pulse Rate 113 H Pulse Rate [Apical] 102 H Pulse Rate from SpO2 Sensor Pulse Rhythm [Apical] Regular Respiratory Rate 20 14 Respiratory Effort / Characteristics Non-Labored Spontaneous Respiratory Depth Normal Normal Blood Pressure 158/89 H Blood Pressure [Left Arm] 148/78 H Blood Pressure Mean 112 Blood Pressure Mean [Left Arm] 101 Pulse Oximetry 92 86 L 86 L Oxygen Delivery Method Room Air Room Air Room Air Oxygen Flow Rate 0 Sepsis Recent Fever Within 48 Hours Yes Sepsis New/Unexplained Change in Mental Status N/A Sepsis Action Taken by Nursing No Action Required Oxygen Flow Rate - Titration 2 Pulse Oximetry Post Tiitration 93 10/04/22 16:18 10/04/22 15:41 10/04/22 16:00 Temperature Temperature Source Pulse Rate 99 H 105 H 109 H Pulse Rate [Apical] Pulse Rate from SpO2 Sensor 105 H 102 H Pulse Rhythm [Apical] Respiratory Rate 25 H 18 Respiratory Effort / Characteristics Respiratory Depth Blood Pressure Blood Pressure [Left Arm] Blood Pressure Mean Blood Pressure Mean [Left Arm] Pulse Oximetry 88 L 97 Oxygen Delivery Method Room Air Nasal Cannula Oxygen Flow Rate 2 Sepsis Recent Fever Within 48 Hours Sepsis New/Unexplained Change in Mental Status Sepsis Action Taken by Nursing Oxygen Flow Rate - Titration Pulse Oximetry Post Tiitration 10/04/22 16:30 10/04/22 17:19 Temperature Temperature Source Pulse Rate 97 H 112 H Pulse Rate [Apical] Pulse Rate from SpO2 Sensor 98 H 110 H Pulse Rhythm [Apical] Respiratory Rate 22 31 H Respiratory Effort / Characteristics Respiratory Depth Blood Pressure Blood Pressure [Left Arm] Blood Pressure Mean Blood Pressure Mean [Left Arm] Pulse Oximetry 92 98 Oxygen Delivery Method Nasal Cannula Nasal Cannula Oxygen Flow Rate 2 2 Sepsis Recent Fever Within 48 Hours Sepsis New/Unexplained Change in Mental Status Sepsis Action Taken by Nursing Oxygen Flow Rate - Titration Pulse Oximetry Post Tiitration Home Medications Current Medication List: was personally reviewed by me Laboratory Data Attestation: I reviewed the patient's lab results. 10/04/22 14:52 10/04/22 14:52 Lab Results 10/04/22 10/04/22 10/04/22 Range/Units 14:45 14:45 14:52 WBC 8.77 (4.8-10.8) K/ul RBC 5.01 (4.20-5.40) M/uL Hgb 14.1 (12.0-16.0) g/dl Hct 43.6 (37.0-47.0) % MCV 87.0 (80.0-100.0) fL MCH 28.1 (25.0-34.0) pg MCHC 32.3 (32.0-36.0) g/dL RDW Std Deviation 40.0 (36.4-46.3) fL RDW Coeff of Jeffery 12.7 (11.5-14.5) % Plt Count 267 (130-400) K/uL MPV 9.7 (9.4-12.4) fL Immature Gran % (Auto) 0.3 % Neut % (Auto) 78.0 % Lymph % (Auto) 8.3 % Geary % (Auto) 11.7 % Eos % (Auto) 0.7 % Baso % (Auto) 1.0 % Neut # (Auto) 6.83 H (1.40-6.50) K/uL Lymph # (Auto) 0.73 L (1.2-3.4) K/uL Geary # (Auto) 1.03 H (0.11-0.59) K/uL Eos # (Auto) 0.06 (0-0.50) K/uL Baso # (Auto) 0.09 (0-0.2) K/uL Immature Gran # (Auto) 0.03 (0.01-0.20) K/uL Sodium (136-145) mmol/L Potassium (3.5-5.1) mmol/L Chloride (98-107) mmol/L Carbon Dioxide (21-32) mmol/L Anion Gap (3-11) BUN (6-23) mg/dl Creatinine (0.6-1.2) mg/dl Est Cr Clr Drug Dosing ml/min Est GFR ( Amer) ml/min Est GFR (Non-Af Amer) ml/min BUN/Creatinine Ratio (10-20) Glucose (70-99(Fasting)) mg/dl Calcium (8.6-10.3) mg/dl Magnesium (1.7-2.4) mg/dl Total Bilirubin (0.2-1.0) mg/dl AST (13-39) U/L ALT (7-52) U/L Alkaline Phosphatase (34-104) U/L C-Reactive Protein (0-0.5) mg/dl Total Protein (6.0-8.3) gm/dl Albumin (3.4-5.0) gm/dl Globulin (2.5-4.0) gm/dl Albumin/Globulin Ratio (0.9-2) Procalcitonin (0-0.5) ng/ml Urine Color Dark Yellow Urine Appearance Clear (Clear) Urine pH 5.5 (4.5-7.5) Ur Specific [place] 1.026 (1.000-1.030) Urine Protein Trace H (Negative) Urine Glucose (UA) Negative (Negative) Urine Ketones Trace H (Negative) Urine Blood Negative (Negative) Urine Nitrite Negative (Negative) Urine Bilirubin 1+ H (Negative) Urine Urobilinogen Negative (Negative) Ur Leukocyte Esterase 1+ H (Negative) Urine WBC (Auto) 5-10 H (0-5) /hpf Urine RBC (Auto) 0-4 (0-4) /hpf U Hyaline Cast (Auto) 1-5 (0-5) /lpf U Epithel Cells (Auto) >30 H (0-5) /lpf Urine Bacteria (Auto) Negative (Negative) Lyme Disease IgG Ab (Negative) Lyme IgG (Western Blot) (NEGATIVE) Lyme IgG 18 kDa Band Lyme IgG 23 kDa Band Lyme IgG 28 kDa Band Lyme IgG 30 kDa Band Lyme IgG 39 kDa Band Lyme IgG 41 kDa Band Lyme IgG 45 kDa Band Lyme IgG 58 kDa Band Lyme IgG 66 kDa Band Lyme IgG 93 kDa Band Lyme IgM Ab (WB) (NEGATIVE) Lyme Disease IgM Ab (Negative) Lyme IgM 23 kDa Band Lyme IgM 39 kDa Band Lyme IgM 41 kDa Band SARS-CoV-2 (PCR) POSITIVE A* (Negative) Influenza Type A (PCR) Negative (Neg) Influenza Type B (PCR) Negative (Neg) RSV (RT-PCR) Negative (Neg) 10/04/22 10/04/22 10/04/22 Range/Units 14:52 14:52 14:52 WBC (4.8-10.8) K/ul RBC (4.20-5.40) M/uL Hgb (12.0-16.0) g/dl Hct (37.0-47.0) % MCV (80.0-100.0) fL MCH (25.0-34.0) pg MCHC (32.0-36.0) g/dL RDW Std Deviation (36.4-46.3) fL RDW Coeff of Jeffery (11.5-14.5) % Plt Count (130-400) K/uL MPV (9.4-12.4) fL Immature Gran % (Auto) % Neut % (Auto) % Lymph % (Auto) % Geary % (Auto) % Eos % (Auto) % Baso % (Auto) % Neut # (Auto) (1.40-6.50) K/uL Lymph # (Auto) (1.2-3.4) K/uL Geary # (Auto) (0.11-0.59) K/uL Eos # (Auto) (0-0.50) K/uL Baso # (Auto) (0-0.2) K/uL Immature Gran # (Auto) (0.01-0.20) K/uL Sodium 137 (136-145) mmol/L Potassium 4.1 (3.5-5.1) mmol/L Chloride 104 (98-107) mmol/L Carbon Dioxide 26 (21-32) mmol/L Anion Gap 7 (3-11) BUN 12 (6-23) mg/dl Creatinine 0.73 (0.6-1.2) mg/dl Est Cr Clr Drug Dosing 61.9 ml/min Est GFR ( Amer) 92.1 ml/min Est GFR (Non-Af Amer) 79.4 ml/min BUN/Creatinine Ratio 16.4 (10-20) Glucose 95 (70-99(Fasting)) mg/dl Calcium 9.2 (8.6-10.3) mg/dl Magnesium 2.0 (1.7-2.4) mg/dl Total Bilirubin 0.5 (0.2-1.0) mg/dl AST 32 (13-39) U/L ALT 28 (7-52) U/L Alkaline Phosphatase 122 H (34-104) U/L C-Reactive Protein 3.83 H (0-0.5) mg/dl Total Protein 7.9 (6.0-8.3) gm/dl Albumin 4.1 (3.4-5.0) gm/dl Globulin 3.8 (2.5-4.0) gm/dl Albumin/Globulin Ratio 1.1 (0.9-2) Procalcitonin 0.15 (0-0.5) ng/ml Urine Color Urine Appearance (Clear) Urine pH (4.5-7.5) Ur Specific [place] (1.000-1.030) Urine Protein (Negative) Urine Glucose (UA) (Negative) Urine Ketones (Negative) Urine Blood (Negative) Urine Nitrite (Negative) Urine Bilirubin (Negative) Urine Urobilinogen (Negative) Ur Leukocyte Esterase (Negative) Urine WBC (Auto) (0-5) /hpf Urine RBC (Auto) (0-4) /hpf U Hyaline Cast (Auto) (0-5) /lpf U Epithel Cells (Auto) (0-5) /lpf Urine Bacteria (Auto) (Negative) Lyme Disease IgG Ab Negative (Negative) Lyme IgG (Western Blot) NEGATIVE (NEGATIVE) Lyme IgG 18 kDa Band NON-REACTIVE Lyme IgG 23 kDa Band NON-REACTIVE Lyme IgG 28 kDa Band NON-REACTIVE Lyme IgG 30 kDa Band NON-REACTIVE Lyme IgG 39 kDa Band NON-REACTIVE Lyme IgG 41 kDa Band REACTIVE A Lyme IgG 45 kDa Band NON-REACTIVE Lyme IgG 58 kDa Band NON-REACTIVE Lyme IgG 66 kDa Band NON-REACTIVE Lyme IgG 93 kDa Band NON-REACTIVE Lyme IgM Ab (WB) NEGATIVE (NEGATIVE) Lyme Disease IgM Ab Equivocal A (Negative) Lyme IgM 23 kDa Band NON-REACTIVE Lyme IgM 39 kDa Band NON-REACTIVE Lyme IgM 41 kDa Band NON-REACTIVE SARS-CoV-2 (PCR) (Negative) Influenza Type A (PCR) (Neg) Influenza Type B (PCR) (Neg) RSV (RT-PCR) (Neg) Administered Medications Discontinued Medications Acetaminophen (Acetaminophen 500 Mg Tab) 1,000 mg PO NOW STA Stop: 10/04/22 19:28 Last Admin: 10/04/22 20:08 Dose: 1,000 mg Documented By: ARS Acetaminophen (Acetaminophen 325 Mg Tab) 650 mg PO Q4H PRN PRN Reason: pain/fever Stop: 11/03/22 23:36 Last Admin: 10/06/22 07:30 Dose: 650 mg Documented By: BEAN Albuterol (Albut/Ipratrop 3mg/0.5mg Neb 3 Ml Vial) 3 ml NEB NOW STA; Protocol Stop: 10/04/22 16:23 Last Admin: 10/04/22 16:44 Dose: 3 ml Documented By: DAVIS Albuterol (Albuterol Hfa 8 Gm Inhaler) 2 puffs INH Q4H PRN PRN Reason: SOB, wheezing, cough Stop: 11/03/22 23:36 Last Admin: 10/07/22 06:10 Dose: 2 puffs Documented By: GIO Amlodipine Besylate (Amlodipine Besylate 5 Mg Tab) 5 mg PO DAILY SOLE Stop: 11/04/22 08:59 Last Admin: 10/08/22 08:38 Dose: 5 mg Documented By: Admin: 10/07/22 07:47 Dose: 5 mg Documented By: Admin: 10/06/22 07:30 Dose: 5 mg Documented By: Admin: 10/05/22 08:32 Dose: 5 mg Documented By: BEAN Aspirin (Aspirin 81 Mg Ectab) 81 mg PO DAILY [facility] Stop: 11/04/22 08:59 Last Admin: 10/08/22 08:38 Dose: 81 mg Documented By: Admin: 10/07/22 07:48 Dose: 81 mg Documented By: Admin: 10/06/22 07:30 Dose: 81 mg Documented By: Admin: 10/05/22 08:32 Dose: 81 mg Documented By: BEAN Dexamethasone (Dexamethasone Sod Inj 4 Mg/Ml Vial) 6 mg IV NOW STA Stop: 10/04/22 16:23 Last Admin: 10/04/22 16:44 Dose: 6 mg Documented By: DAVIS Diphenhydramine HCl (Diphenhydramine 50 Mg/Ml Vial) 50 mg IV NOW STA Stop: 10/04/22 17:05 Last Admin: 10/04/22 17:26 Dose: 50 mg Documented By: DAVIS Enoxaparin Sodium (Enoxaparin Inj 40 Mg/0.4 Ml Syr) 40 mg SQ QPM SOLE Stop: 11/04/22 20:59 Last Admin: 10/07/22 20:44 Dose: 40 mg Documented By: Admin: 10/06/22 20:18 Dose: 40 mg Documented By: Admin: 10/05/22 20:55 Dose: 40 mg Documented By: AGUSTO Enoxaparin Sodium (Enoxaparin Inj 40 Mg/0.4 Ml Syr) 40 mg SQ ONE STA Stop: 10/04/22 21:37 Last Admin: 10/04/22 22:35 Dose: 40 mg Documented By: DAVIS Guaifenesin (Guaifenesin 600 Mg Tabcr) 1,200 mg PO Q12 SOLE Stop: 11/05/22 00:14 Last Admin: 10/08/22 08:39 Dose: 1,200 mg Documented By: Admin: 10/07/22 20:43 Dose: 1,200 mg Documented By: Admin: 10/07/22 07:48 Dose: 1,200 mg Documented By: Admin: 10/06/22 20:18 Dose: 1,200 mg Documented By: Admin: 10/06/22 07:30 Dose: 1,200 mg Documented By: Admin: 10/06/22 00:26 Dose: 1,200 mg Documented By: ANNETTE Sodium Chloride (Nss 1000ml) 1,000 mls @ 125 mls/hr IV .Q8H SOLE Stop: 11/03/22 19:29 Last Admin: 10/04/22 20:08 Dose: Not Given Documented By: DAVIS Sodium Chloride (Nss 1000ml) 500 mls @ 999 mls/hr IV .Q31M ONE Stop: 10/04/22 19:59 Last Infusion: 10/04/22 21:18 Dose: 0 mls/hr Documented By: Admin: 10/04/22 20:08 Dose: 999 mls/hr Documented By: DAVIS Ampicillin Sodium/Sulbactam Sodium 3,000 mg/ Sodium Chloride 108 mls @ 200 mls/hr IV Q6H SOLE; Protocol Stop: 10/15/22 00:00 Last Infusion: 10/08/22 12:53 Dose: 0 mls/hr Documented By: Admin: 10/08/22 12:16 Dose: 200 mls/hr Documented By: Infusion: 10/08/22 06:24 Dose: 0 mls/hr Documented By: Admin: 10/08/22 05:51 Dose: 200 mls/hr Documented By: Infusion: 10/08/22 00:19 Dose: 0 mls/hr Documented By: Admin: 10/07/22 23:46 Dose: 200 mls/hr Documented By: Infusion: 10/07/22 19:35 Dose: 0 mls/hr Documented By: Infusion: 10/07/22 19:01 Dose: 200 mls/hr Documented By: Infusion: 10/07/22 17:42 Dose: 0 mls/hr Documented By: Admin: 10/07/22 17:41 Dose: 200 mls/hr Documented By: Infusion: 10/07/22 12:25 Dose: 0 mls/hr Documented By: Admin: 10/07/22 11:56 Dose: 200 mls/hr Documented By: Infusion: 10/07/22 06:06 Dose: 0 mls/hr Documented By: Admin: 10/07/22 05:26 Dose: 200 mls/hr Documented By: Infusion: 10/07/22 00:49 Dose: 0 mls/hr Documented By: Admin: 10/07/22 00:08 Dose: 200 mls/hr Documented By: Infusion: 10/06/22 17:55 Dose: 0 mls/hr Documented By: Admin: 10/06/22 17:27 Dose: 200 mls/hr Documented By: Infusion: 10/06/22 13:50 Dose: 0 mls/hr Documented By: Infusion: 10/06/22 13:42 Dose: 200 mls/hr Documented By: Infusion: 10/06/22 13:04 Dose: 0 mls/hr Documented By: Admin: 10/06/22 12:43 Dose: 200 mls/hr Documented By: Infusion: 10/06/22 07:01 Dose: 0 mls/hr Documented By: Admin: 10/06/22 06:04 Dose: 200 mls/hr Documented By: Infusion: 10/06/22 00:20 Dose: 0 mls/hr Documented By: Admin: 10/05/22 23:46 Dose: 200 mls/hr Documented By: Infusion: 10/05/22 18:03 Dose: 0 mls/hr Documented By: Admin: 10/05/22 17:35 Dose: 200 mls/hr Documented By: Infusion: 10/05/22 13:25 Dose: 0 mls/hr Documented By: Admin: 10/05/22 12:44 Dose: 200 mls/hr Documented By: Infusion: 10/05/22 06:03 Dose: 0 mls/hr Documented By: Admin: 10/05/22 05:18 Dose: 200 mls/hr Documented By: Infusion: 10/05/22 01:10 Dose: 0 mls/hr Documented By: Admin: 10/05/22 00:34 Dose: 200 mls/hr Documented By: ANNETTE Lactated Ringer's (Lr) 1,000 mls @ 125 mls/hr IV .Q8H SOLE Stop: 10/05/22 07:36 Last Infusion: 10/05/22 08:33 Dose: 0 mls/hr Documented By: Admin: 10/05/22 00:35 Dose: 125 mls/hr Documented By: ANNETTE Dexamethasone 6 mg/ Syringe 1.5 mls @ 1 mls/min IV DAILY SOLE Stop: 10/13/22 09:02 Last Admin: 10/08/22 08:38 Dose: 1 mls/min Documented By: Admin: 10/07/22 07:44 Dose: 1 mls/min Documented By: Admin: 10/06/22 07:31 Dose: 1 mls/min Documented By: Admin: 10/05/22 09:45 Dose: 1 mls/min Documented By: BEAN Ioversol (Ioversol 350 Mg 125ml Prefilled Syringe) 110 ml IV ONCE ONE Stop: 10/04/22 17:17 Last Admin: 10/04/22 17:16 Dose: 110 ml Documented By: JHONNY Lisinopril (Lisinopril 20 Mg Tab) 20 mg PO QAM SOLE Stop: 11/04/22 08:59 Last Admin: 10/08/22 08:38 Dose: 20 mg Documented By: Admin: 10/07/22 07:48 Dose: 20 mg Documented By: Admin: 10/06/22 07:29 Dose: 20 mg Documented By: Admin: 10/05/22 08:32 Dose: 20 mg Documented By: BEAN Lorazepam (Lorazepam 0.5 Mg Tab) 0.5 mg PO TID PRN PRN Reason: Anxiety Stop: 11/03/22 23:36 Last Admin: 10/07/22 20:43 Dose: 0.5 mg Documented By: Admin: 10/06/22 20:27 Dose: 0.5 mg Documented By: Admin: 10/06/22 06:03 Dose: 0.5 mg Documented By: ANNETTE Methylprednisolone (Methylprednisolone 125 Mg/2 Ml Vial) 60 mg IV NOW STA Stop: 10/04/22 17:05 Last Admin: 10/04/22 17:27 Dose: Not Given Documented By: DAVIS Pantoprazole Sodium (Pantoprazole 40 Mg Tab) 40 mg PO DAILY SOLE Stop: 11/04/22 08:59 Last Admin: 10/08/22 08:38 Dose: 40 mg Documented By: Admin: 10/07/22 07:48 Dose: 40 mg Documented By: Admin: 10/06/22 07:29 Dose: 40 mg Documented By: Admin: 10/05/22 08:32 Dose: 40 mg Documented By: BEAN Imaging Data Radiologist's Impression: Chest X-Ray 10/04/22 14:42 SINGLE VIEW CHEST CLINICAL HISTORY: Dyspnea FINDINGS: An AP, portable, upright chest radiograph is compared to study dated 04/03/2021. The heart is enlarged. There is prominence of the pulmonary va sculature. Scarring/atelectasis is seen at the lung bases. No airspace consolidation or large pleural effusion is identified. No pneumothorax is seen. The skeletal structures are osteopenic. The bony thorax is grossly intact. IMPRESSION: 1. Cardiomegaly with prominence of the pulmonary vasculature. Correlate clinically for evidence of mild congestive change. 2. No airspace consolidation or large pleural effusion is identified. ACT 112: Negative or not required by law. Electronically signed by: Wilmer Collazo M.D. 10/04/2022 3:58 PM Discharge Plan Visit Data Chief Complaint: Flu Like Symptoms Stated Complaint: VOMITING, ABDOMINAL PAIN, FEVER, BODY ACHES ED Provider: Mague Arteaga Discharge Problem: Tachycardia, Hypoxia, COVID-19 Patient Disposition: Admitted As Inpatient Discharge Instructions Interventions: ED Discharge Assessment Last Done: 10/05/22 00:03
--- NOTE | 2022-10-04 17:48 | CT Scan Report ---
CT angio chest PE protocol CT DOSE: 867.82 mGy.cm HISTORY: 77 years-old Female with PE. Acute cough and shortness of breath TECHNIQUE: Multiple CTA images of the chest were obtained after the intravenous administration of 110 ml Optiray. Coronal and sagittal MIPS were obtained from the axial data set and were submitted for review. All measurements were obtained according to NASCET criteria. A dose lowering technique was u tilized adhering to the principles of ALARA. COMPARISON: Chest radiograph of same day, CT abdomen and pelvis 01/19/2020 FINDINGS: CTA: Moderate cardiomegaly. No pericardial effusion. Unremarkable thoracic aorta with mild atherosclerosis . No pulmonary emboli. CT CHEST: Unremarkable thyroid. Borderline enlarged right hilar and subcarinal lymph nodes measuring up to 10 m m, favored to be reactive. Small right Bochdalek hernia. Subsegmental bibasilar groundglass densities suggestive of atelectasis. No pneumothorax, pleural effusion or overt pulmonary edema or lobar airsp eron consolidation. No suspicious pulmonary nodules or masses. Central airways are patent. Gaseous distention of the esophagus with moderate sized hiatal hernia. Particularly foci of the liver are suggestive of cysts measuring up to 8.7 cm and the right hepatic lobe, grossly 5.9 cm. Unremarka ble soft tissues. No acute fracture. IMPRESSION: 1. No pulmonary emboli. 2. No pleural effusion or airspace consolidation to suggest pneumonia. 3. Moderate sized hiatal hernia. ACT 112: Negative or not required by law. The above report was generated using voice recognition software. It may contain grammatical, syntax o r spelling errors. Electronically signed by: Quoc Gomes M.D. 10/04/2022 5:46 PM
[2022-10-04] MEDS ORDERED: ACETAMINOPHEN 500 MG TAB PO STA (19:27)
[2022-10-04] MEDS ORDERED: SODIUM CHLORIDE 0.9% 1000ML 500 ML IV ONE (19:29)
[2022-10-04] MEDS ORDERED: SODIUM CHLORIDE 0.9% 1000ML 1,000 ML IV SCH (19:30)
--- NOTE | 2022-10-04 19:34 | Ultrasound Report ---
ULTRASOUND BILATERAL LOWER EXTREMITY VENOUS CLINICAL HISTORY: Covid. Dyspnea. COMPARISON STUDY: Right lower extremity venous ultrasound dated 07/20/2022. TECHNIQUE: Real-time, grayscale, and color Doppler sonography of the deep veins of the right and left lower extremity was performed from the inguinal crease to the calf. Compression and augmentation wer e utilized. FINDINGS: There is no sonographic evidence of deep venous thrombosis identified in the right or left lower extremity. The common femoral, superficial femoral, and popliteal veins are patent and normally compressible bilaterally. The greater saphenous vein and the profunda femoris vein at the junction w ith the common femoral vein are clear in both legs. The visualized calf veins are patent bilaterally. IMPRESSION: There is no sonographic evidence of deep venous thrombosis identified in the right or lef t lower extremity. ACT 112: Negative or not required by law. Electronically signed by: Wilmer Collazo M.D. 10/04/2022 7:31 PM
--- NOTE | 2022-10-04 20:11 | History & Physical Report ---
Date of Service October 04, 2022 Assessment & Plan (1) Acute sinusitis: Plan: Possible diagnosis why she is acutely getting worse. Recommend treating with Unasyn initially but can be changed to Augmentin when less nauseous. Take blood cultures and procalcitonin prior to giving antibiotics Dexamethasone should help with this in addition (2) COVID-19: Plan: Unclear how acute this is. Possibly the only cause of her generalized fatigue but given symptoms since September 19 and ongoing chills with progressive worsening this last week would favor secondary bacterial infection as above (no pneumonia on CXR). Given hypoxia and elevated CRP will treat with dexamethasone 6mg IV daily regardless as this may help with her sinusitis in addition (3) Hypoxia: Plan: Aim O2 sats > 90%. No significant pathology on CT would suggest mostly due to poor inspiration due to fatigue and obesity and should be encouraged to use incentive spirometer Possible micro-inflammatory changes not seen on imaging so as above will treat possible COVID infection with dexamethasone. Use albuterol PRN - no wheezing or exam but subjective improvement with duoneb given in the ER (4) HTN, goal below 140/90: Plan: Continue lisinopril 20mg PO daily and amlodipine 5mg PO daily (5) CHANTELLE (generalized anxiety disorder): Plan: Lorazepam PRN (6) Acid reflux disease: Plan: Make PPI scheduled while on dexamethasone Plan VTE Prophylaxis - Lovenox 40mg SQ daily Diet - regular Disposition - admit to med/surg Admission and Anticipated Discharge Date Admission Date: October 04, 2022 History of Present Illness Chief Complaint: Generalized weakness Primary Care Provider: Gabrielle Blackwell MD Joelle Faith is a 77 year old female who presents to the ER with generalized fatigue and weakness. She reports taking a COVID test today which was positive. Unclear duration of symptoms as she recent went to [place] and reports feeling unwell even when she left on September 19. Progressively getting worse since that time with nasal congestion and cough. No shortness of breath. She travelled back from [place] on and getting progressively weaker at home therefore decided to come to the ER today. No subjective fevers but having chills throughout this time and these have also been getting worse the last week. Sinus pressure and drainage for the last 1 week. No shortness of breath or chest pain. Nausea with decreased appetite but no vomiting, abdominal pain or change in bowel habit. Allergies Allergy/AdvReac Type Severity Reaction Status Date / Time No Known Drug Allergies Allergy Unknown Verified 10/04/22 19:40 Home Medications Medication Instructions Recorded Confirmed Type multivitamin (Daily Multi-Vitamin 1 tab PO DAILY 07/30/18 10/04/22 History tablet) cholecalciferol (vitamin D3) 50 2,000 units PO DAILY 02/16/19 10/04/22 History mcg (2,000 unit) tablet cyanocobalamin (vitamin B-12) 100 100 mcg PO DAILY 02/16/19 10/04/22 History mcg tablet aspirin 81 mg tablet,delayed 81 mg PO DAILY 01/19/20 10/04/22 History release (Ubaldo Low Dose Aspirin) amlodipine 5 mg tablet 5 mg PO DAILY #90 tabs 04/26/21 10/04/22 Rx omeprazole 40 mg capsule,delayed 40 mg PO DAILY PRN Heartburn #90 05/03/21 10/04/22 Rx release caps lorazepam 0.5 mg tablet 0.5 mg PO TID PRN Anxiety #90 tabs 08/13/22 10/04/22 Rx lisinopril 10 mg tablet 20 mg PO QAM #180 tabs 09/16/22 10/04/22 Rx Past Med/Surg History Medical History (Updated 10/04/22 @ 22:28 by Aron Kumar MD) Acid reflux disease Calculus of ureterovesical junction (UVJ) COVID-19 CHANTELLE (generalized anxiety disorder) History of left breast cancer 12/16/2019 Mucinous carcinoma, 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 HTN, goal below 140/90 Hypokalemia Hypoxia Insomnia 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 Nausea vomiting and diarrhea 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 Post herpetic neuralgia Urinary incontinence in female Vitamin D deficiency Surgical History H/O rotator cuff surgery Left History of anesthesia reaction SLOW TO WAKE UP - REPORTS THAT THEY'VE HAD TO USE NARCAN TWICE BEFORE History of appendectomy History of bladder surgery "Lift" History of cholecystectomy History of facelift History of herniorrhaphy History of hysterectomy History of tubal ligation Hx of BSO (bilateral salpingo-oophorectomy) Hx of cataract surgery Bilateral;Had laser surgery as well Hx of colonoscopy S/P lumpectomy, left breast With SLN biopsy on 02/16/2020 Family History Mother Breast cancer Parkinsons disease Brother Colorectal cancer Father Heart disease Brother No problems noted. Sister No problems noted. Sister Alzheimer disease Sister No problems noted. Son MVA (motor vehicle accident) Son No problems noted. Son No problems noted. Son No problems noted. Family/Other Breast cancer Denies family history of Ovarian cancer Prostate cancer Social History Smoking Status: Never smoker Second Hand Exposure: No; Do You Dip or Chew Tobacco: No; Hx Alcohol Use: Yes Alcohol type: wine Alcohol Intake Frequency: 2-4 x/Month Hx Substance Use: No Preferred Language: Beninese Communication Ability: Effective Visual Impairment: No Limitations Hearing Ability: Normal Associate Art Director Required: No Beliefs That Will Affect Care: None marital status: / Current Living Situation: Alone current occupational status: retired current occupation: used to work [employer] business How many Children do You have: 4 Feels Safe at Home: Yes Safety Concerns: Feels Safe At This Time Childhood Exposure to Second-Hand Smoke: No Diet: regular caffeine: Yes (4 cups/day) during the past year weight has: remained stable Dental Care, Regularly: Yes Physical Activity Frequency: Daily Seatbelt Use: always Sunscreen Use: Yes Assistive Devices: None Review of Systems Review of Systems: All systems reviewed & are unremarkable except as noted in HPI & below Physical Exam Constitutional: WD/WN, vitals as above Eyes: PERRL, conjunctivae normal, anicteric sclerae Respiratory: normal respiratory effort, lungs clear to auscultation Cardiovascular: Rate/Rhythm: regular rhythm and + tachycardic Heart Sounds: no murmur Extremities: normal capillary refill; no calf tenderness and no pedal edema Gastrointestinal (Abdomen): normal bowel sounds, soft, nontender, no hepatosplenomegaly Musculoskeletal: no cyanosis or clubbing, extremities motor strength 5/5 Skin: no rashes, warm and dry Neurologic: moves all extremities and awake; not confused Psychiatric: A+Ox3, euthymic affect Results & Data Results & Data Vital Signs (Past 12 Hours) Vital Signs Temp Pulse Pulse Resp BP BP Pulse Ox 10/04/22 17:19 112 H 31 H 98 10/04/22 16:30 97 H 22 92 10/04/22 16:00 109 H 18 97 10/04/22 15:41 105 H 25 H 88 L 10/04/22 16:18 99 H 10/04/22 15:47 86 L 10/04/22 15:44 102 H 14 148/78 H 86 L 10/04/22 14:36 37.5 C 113 H 20 158/89 H 92 O2 Del Method O2 Flow Rate 10/04/22 17:19 Nasal Cannula 2 10/04/22 16:30 Nasal Cannula 2 10/04/22 16:00 Nasal Cannula 2 10/04/22 15:41 Room Air 10/04/22 16:18 10/04/22 15:47 Room Air 0 10/04/22 15:44 Room Air 10/04/22 14:36 Room Air Laboratory Results Abnormal lab results 10/04/22 10/04/22 10/04/22 Range/Units 14:45 14:45 14:52 Neut # (Auto) 6.83 H (1.40-6.50) K/uL Lymph # (Auto) 0.73 L (1.2-3.4) K/uL Towns # (Auto) 1.03 H (0.11-0.59) K/uL Alkaline Phosphatase (34-104) U/L Urine Protein Trace H (Negative) Urine Ketones Trace H (Negative) Urine Bilirubin 1+ H (Negative) Ur Leukocyte Esterase 1+ H (Negative) Urine WBC (Auto) 5-10 H (0-5) /hpf U Epithel Cells (Auto) >30 H (0-5) /lpf SARS-CoV-2 (PCR) POSITIVE A* (Negative) 10/04/22 Range/Units 14:52 Neut # (Auto) (1.40-6.50) K/uL Lymph # (Auto) (1.2-3.4) K/uL Towns # (Auto) (0.11-0.59) K/uL Alkaline Phosphatase 122 H (34-104) U/L Urine Protein (Negative) Urine Ketones (Negative) Urine Bilirubin (Negative) Ur Leukocyte Esterase (Negative) Urine WBC (Auto) (0-5) /hpf U Epithel Cells (Auto) (0-5) /lpf SARS-CoV-2 (PCR) (Negative) Diagnostic Findings SINGLE VIEW CHEST CLINICAL HISTORY: Dyspnea FINDINGS: An AP, portable, upright chest radiograph is compared to study dated 04/03/2021. The heart is enlarged. There is prominence of the pulmonary vasculature. Scarring/atelectasis is seen at the lung bases. No airspace consolidation or large pleural effusion is identified. No pneumothorax is seen. The skeletal structures are osteopenic. The bony thorax is grossly intact. IMPRESSION: 1. Cardiomegaly with prominence of the pulmonary vasculature. Correlate cl inically for evidence of mild congestive change. 2. No airspace consolidation or large pleural effusion is identified. CT angio chest PE protocol CT DOSE: 867.82 mGy.cm HISTORY: 77 years-old Female with PE. Acute cough and shortness of breath TECHNIQUE: Multiple CTA images of the chest were obtained after the intravenous administration of 110 ml Optiray. Coronal and sagittal MIPS were obtained from the axial data set and were submitted for review. All measurements were obtained according to NASCET criteria. A dose lowering technique was utilized adhering to the principles of ALARA. COMPARISON: Chest radiograph of same day, CT abdomen and pelvis 01/19/2020 FINDINGS: CTA: Moderate cardiomegaly. No pericardial effusion. Unremarkable thoracic aorta with mild atherosclerosis. No pulmonary emboli. CT CHEST: Unremarkable thyroid. Borderline enlarged right hilar and subcarinal lymph nodes measuring up to 10 mm, favored to be reactive. Small right Bochdalek hernia. Subsegmental bibasilar groundglass densities suggestive of atelectasis. No pneumothorax, pleural effusion or overt pulmonary edema or lobar airspace consolidation. No suspicious pulmonary nodules or masses. Central airways are patent. Gaseous distention of the esophagus with moderate sized hiatal hernia. Particularly foci of the liver are suggestive of cysts measuring up to 8.7 cm and the right hepatic lobe, grossly 5.9 cm. Unremarkable soft tissues. No acute fracture. IMPRESSION: 1. No pulmonary emboli. 2. No pleural effusion or airspace consolidation to suggest pneumonia. 3. Moderate sized hiatal hernia. ULTRASOUND BILATERAL LOWER EXTREMITY VENOUS CLINICAL HISTORY: Covid. Dyspnea. COMPARISON STUDY: Right lower extremity venous ultrasound dated 07/20/2022. TECHNIQUE: Real-time, grayscale, and color Doppler sonography of the deep veins of the right and left lower extremity was performed from the inguinal crease to the calf. Compression and augmentation were utilized. FINDINGS: There is no sonographic evidence of deep venous thrombosis identified in the right or left lower extremity. The common femoral, superficial femoral, and popliteal veins are patent and normally compressible bilaterally. The greater saphenous vein and the profunda femoris vein at the junction with the common femoral vein are clear in both legs. The visualized calf veins are patent bilaterally. IMPRESSION: There is no sonographic evidence of deep venous thrombosis identified in the right or left lower extremity. Medications Administered ER Medications Given: Duoneb 3ml Dexamethasone 6mg IV Diphenhydramine 50mg IV Solu-Medrol 60mg IV Acetaminophen 1000 mg PO ECG Rate (beats per minute): 102 Rhythm: sinus tachycardia Findings: no acute ischemic change Comparison ECG Date: from (Apr 03, 2021) Code Status & VTE Plan Code Status Full VTE Prophylaxis Plan VTE Prophylaxis will be ordered: Yes PG Care Time/CCT Total # of Minutes Spent Total Time Spent with Patient: Total time spent is greater than 50% in coordination of care (as documented) at patient's floor/unit and/or counseling patient: Coding Level of Care Code 21156 INT INP/OBS CARE 3/75MIN Diagnoses Acute sinusitis J01.90 COVID-19 U07.1 Hypoxia R09.02 HTN, goal below 140/90 I10 CHANTELLE (generalized anxiety disorder) F41.1 Acid reflux disease K21.9
[2022-10-04 20:24] LABS: C Reactive Protein 3.83 mg/dl (0-0.5)
[2022-10-04] MEDS ORDERED: ENOXAPARIN INJ 40 MG/0.4 ML SYR SQ STA (21:36)
[2022-10-04 23:35] LABS: Procalcitonin 0.15 ng/ml (0-0.5)
[2022-10-04] MEDS ORDERED: ONDANSETRON INJ 2 MG/ML 2 ML VIAL IV PRN (23:37)
[2022-10-04] MEDS ORDERED: ALBUTEROL HFA 8 GM INHALER INH PRN (23:37)
[2022-10-04] MEDS ORDERED: LACTATED RINGER'S 1,000 ML IV SCH (23:37)
[2022-10-04] MEDS ORDERED: ACETAMINOPHEN 325 MG TAB PO PRN (23:37)
[2022-10-04 23:52] LABS: Lyme Ab IgG w/WB Rflx Negative (Negative)
[2022-10-05 00:08] LABS: Lyme Ab IgM w/WB Rflx Equivocal (Negative)
[2022-10-05] MEDS: AMPICILLIN/SULBACTAM SOD 3,000 MG in 0.9 % SODIUM CHLORIDE 100 ML IV SCH ×5 (00:34→23:46)
[2022-10-05 07:59] LABS: Basophils # (auto) 0.05 K/uL (0-0.2); Basophils % (auto) 0.8 %; Hematocrit (blood only) 38.9 % (37.0-47.0); Hemoglobin 12.9 g/dl (12.0-16.0); Immature Granulocytes # (auto) 0.02 K/uL (0.01-0.20); Immature Granulocytes % (auto) 0.3 %; Lymphocytes # (auto) 0.76 K/uL (1.2-3.4); Lymphocytes % (auto) 12.8 %; Mean Corpuscular Hemoglobin 28.5 pg (25.0-34.0); Mean Corpuscular Hgb Conc 33.2 g/dL (32.0-36.0); Mean Corpuscular Volume 86.1 fL (80.0-100.0); Mean Platelet Volume 9.6 fL (9.4-12.4); Monocytes # (auto) 0.67 K/uL (0.11-0.59); Monocytes % (auto) 11.3 %; Neutrophils # (auto) 4.42 K/uL (1.40-6.50); Neutrophils % (auto) 74.8 %; Platelet Count 238 K/uL (130-400); RDW Coefficient of Variation 12.3 % (11.5-14.5); RDW Standard Deviation 38.6 fL (36.4-46.3); Red Blood Count 4.52 M/uL (4.20-5.40); White Blood Count 5.92 K/ul (4.8-10.8)
[2022-10-05 08:05] LABS: BUN Creatinine Ratio 23.5 (10-20); C Reactive Protein 4.34 mg/dl (0-0.5); Calcium 8.8 mg/dl (8.6-10.3); Creatinine Clr Calc Pharmacy 146.3 ml/min; Est GFR (African American) 107.5 ml/min; Est GFR (Non-African American) 92.8 ml/min
[2022-10-05] MEDS: lisinopril 20 MG TAB PO SCH (08:32)
[2022-10-05] MEDS: amLODIPine BESYLATE 5 MG TAB PO SCH (08:32)
[2022-10-05] MEDS: PANTOprazole 40 MG TAB PO SCH (08:32)
[2022-10-05] MEDS: ASPIRIN 81 MG ECTAB PO SCH (08:32)
[2022-10-05] MEDS ORDERED: DEXAMETHASONE SOD INJ 4 MG/ML VIAL IV SCH (09:00)
[2022-10-05] MEDS: dexAMETHasone 6 MG in SYRINGE 0 ML IV SCH (09:45)
--- NOTE | 2022-10-05 10:41 | Electrocardiogram Report ---
Test Reason : Blood Pressure : / mmHG Vent. Rate : 102 BPM Atrial Rate : 102 BPM P-R Int : 162 ms QRS Dur : 064 ms QT Int : 334 ms P-R-T Axes : 033 001 033 degrees QTc Int : 435 ms Sinus tachycardia Cannot rule out Inferior infarct (cited on or before 03-APR-2021) Abnormal ECG When compared with ECG of 03-APR-2021 19:50, No significant change was found Confirmed by Matt Shahid ([id number]) on 10/05/2022 10:41:18 AM Referred By: REFERRED SELF Confirmed By:Matt Shahid
[2022-10-05] MEDS: ENOXAPARIN INJ 40 MG/0.4 ML SYR SQ SCH (20:55)
[2022-10-06] MEDS: guaiFENesin 600 MG TABCR PO SCH ×3 (00:26→20:18)
[2022-10-06] MEDS: LORazepam 0.5 MG TAB PO PRN ×2 (06:03→20:27)
[2022-10-06] MEDS: AMPICILLIN/SULBACTAM SOD 3,000 MG in 0.9 % SODIUM CHLORIDE 100 ML IV SCH ×3 (06:04→17:27)
--- NOTE | 2022-10-06 06:52 | Hospitalist Progress Note ---
Date of Service October 05, 2022 Assessment & Plan (1) Acute sinusitis: Plan: Possible diagnosis why she is acutely getting worse. Recommend treating with Unasyn initially but can be changed to Augmentin when less nauseous. Take blood cultures and procalcitonin prior to giving antibiotics Dexamethasone should help with this in addition (2) COVID-19: Plan: Unclear how acute this is. Possibly the only cause of her generalized fatigue but given symptoms since September 19 and ongoing chills with progressive worsening this last week would favor secondary bacterial infection as above (no pneumonia on CXR). Given hypoxia and elevated CRP will treat with dexamethasone 6mg IV daily regardless as this may help with her sinusitis in addition (3) Hypoxia: Plan: Aim O2 sats > 90%. No significant pathology on CT would suggest mostly due to poor inspiration due to fatigue and obesity and should be encouraged to use incentive spirometer Possible micro-inflammatory changes not seen on imaging so as above will treat possible COVID infection with dexamethasone. Use albuterol PRN - no wheezing or exam but subjective improvement with duoneb given in the ER (4) HTN, goal below 140/90: Plan: Continue lisinopril 20mg PO daily and amlodipine 5mg PO daily (5) CHANTELLE (generalized anxiety disorder): Plan: Lorazepam PRN (6) Acid reflux disease: Plan: Make PPI scheduled while on dexamethasone Plan VTE Prophylaxis - Lovenox 40mg SQ daily Diet - regular Disposition - admit to med/surg Admission and Anticipated Discharge Date Admission Date: October 04, 2022 Subjective DOS 10/05/2022 Late entry technical Review of Systems Review of Systems: Patient admits to feeling little bit better with treatment. We will add Robitussin for cough. Physical Exam Constitutional: WD/WN, vitals as above Eyes: PERRL, conjunctivae normal, anicteric sclerae ENMT: external ear and nose normal, oropharynx normal Neck: trachea midline, no thyromegaly Respiratory: Good inspiratory effort and equal breath sounds Cardiovascular: RRR, no murmur, no edema Gastrointestinal (Abdomen): normal bowel sounds, soft, nontender, no hepatosplenomegaly Neurologic: PERRL, EOMI, accommodation nl, no face palsy, no dysarthria Psychiatric: A+Ox3, euthymic affect Results & Data Results & Data Vital Signs (Past 12 Hours) Vital Signs Temp Pulse Resp BP Pulse Ox O2 Del Method O2 Flow Rate 10/05/22 23:45 Nasal Cannula 1.5 10/05/22 21:05 Nasal Cannula 1.5 10/05/22 20:25 36.4 C L 71 18 156/83 H 92 Room Air PG Care Time/CCT Total # of Minutes Spent Total Time Spent with Patient: Total time spent is greater than 50% in coordination of care (as documented) at patient's floor/unit and/or counseling patient: Coding Level of Care Code 33576 SUB INP/OBS CARE 04/03MIN Diagnoses Acute sinusitis J01.90 COVID-19 U07.1 Hypoxia R09.02 HTN, goal below 140/90 I10 CHANTELLE (generalized anxiety disorder) F41.1 Acid reflux disease K21.9 Time Spent (min) 25
[2022-10-06] MEDS: lisinopril 20 MG TAB PO SCH (07:29)
[2022-10-06] MEDS: PANTOprazole 40 MG TAB PO SCH (07:29)
[2022-10-06] MEDS: amLODIPine BESYLATE 5 MG TAB PO SCH (07:30)
[2022-10-06] MEDS: ASPIRIN 81 MG ECTAB PO SCH (07:30)
[2022-10-06] MEDS: dexAMETHasone 6 MG in SYRINGE 0 ML IV SCH (07:31)
[2022-10-06] MEDS: ENOXAPARIN INJ 40 MG/0.4 ML SYR SQ SCH (20:18)
--- NOTE | 2022-10-06 23:55 | Hospitalist Progress Note ---
Date of Service October 06, 2022 Assessment & Plan (1) Acute sinusitis: Plan: Possible diagnosis why she is acutely getting worse. Recommend treating with Unasyn initially but can be changed to Augmentin when less nauseous. Take blood cultures and procalcitonin prior to giving antibiotics Dexamethasone should help with this in addition (2) COVID-19: Plan: Unclear how acute this is. Possibly the only cause of her generalized fatigue but given symptoms since September 19 and ongoing chills with progressive worsening this last week would favor secondary bacterial infection as above (no pneumonia on CXR). Given hypoxia and elevated CRP will treat with dexamethasone 6mg IV daily regardless as this may help with her sinusitis in addition (3) Hypoxia: Plan: Aim O2 sats > 90%. No significant pathology on CT would suggest mostly due to poor inspiration due to fatigue and obesity and should be encouraged to use incentive spirometer Possible micro-inflammatory changes not seen on imaging so as above will treat possible COVID infection with dexamethasone. Use albuterol PRN - no wheezing or exam but subjective improvement with duoneb given in the ER (4) HTN, goal below 140/90: Plan: Continue lisinopril 20mg PO daily and amlodipine 5mg PO daily (5) CHANTELLE (generalized anxiety disorder): Plan: Lorazepam PRN (6) Acid reflux disease: Plan: Make PPI scheduled while on dexamethasone Plan VTE Prophylaxis - Lovenox 40mg SQ daily Diet - regular Disposition - admit to med/surg Admission and Anticipated Discharge Date Admission Date: October 04, 2022 Subjective DOS 10/05/2022 Late entry technical Physical Exam Constitutional: WD/WN, vitals as above Eyes: PERRL, conjunctivae normal, anicteric sclerae ENMT: external ear and nose normal, oropharynx normal Neck: trachea midline, no thyromegaly Cardiovascular: RRR, no murmur, no edema Gastrointestinal (Abdomen): normal bowel sounds, soft, nontender, no hepatosplenomegaly Neurologic: PERRL, EOMI, accommodation nl, no face palsy, no dysarthria Psychiatric: A+Ox3, euthymic affect Results & Data Results & Data Vital Signs (Past 12 Hours) Vital Signs Temp Pulse Resp BP Pulse Ox O2 Del Method 10/06/22 20:15 Room Air 10/06/22 20:12 36.5 C 72 18 132/77 92 Room Air 10/06/22 16:18 36.6 C 71 18 133/76 91 Room Air 10/06/22 15:29 92 PG Care Time/CCT Total # of Minutes Spent Total Time Spent with Patient: Total time spent is greater than 50% in coordination of care (as documented) at patient's floor/unit and/or counseling patient: Coding Level of Care Code 20262 SUB INP/OBS CARE 2/35MIN Diagnoses Acute sinusitis J01.90 COVID-19 U07.1 Hypoxia R09.02 HTN, goal below 140/90 I10 CHANTELLE (generalized anxiety disorder) F41.1 Acid reflux disease K21.9 Time Spent (min) 35
[2022-10-07] MEDS: AMPICILLIN/SULBACTAM SOD 3,000 MG in 0.9 % SODIUM CHLORIDE 100 ML IV SCH ×5 (00:08→23:46)
[2022-10-07] MEDS: dexAMETHasone 6 MG in SYRINGE 0 ML IV SCH (07:44)
[2022-10-07] MEDS: amLODIPine BESYLATE 5 MG TAB PO SCH (07:47)
[2022-10-07] MEDS: lisinopril 20 MG TAB PO SCH (07:48)
[2022-10-07] MEDS: guaiFENesin 600 MG TABCR PO SCH ×2 (07:48→20:43)
[2022-10-07] MEDS: PANTOprazole 40 MG TAB PO SCH (07:48)
[2022-10-07] MEDS: ASPIRIN 81 MG ECTAB PO SCH (07:48)
[2022-10-07] MEDS: LORazepam 0.5 MG TAB PO PRN (20:43)
[2022-10-07] MEDS: ENOXAPARIN INJ 40 MG/0.4 ML SYR SQ SCH (20:44)
[2022-10-07] MEDS ORDERED: guaiFENesin/CODEINE 100MG/10MG 5ML UDC PO PRN (21:54)
[2022-10-08 03:06] LABS: 18KDIGG Band NON-REACTIVE; 23KDIGG Band NON-REACTIVE; 23KDIGM Band NON-REACTIVE; 28KDIGG Band NON-REACTIVE; 30KDIGG Band NON-REACTIVE; 39KDIGG Band NON-REACTIVE; 39KDIGM Band NON-REACTIVE; 41KDIGG Band REACTIVE; 41KDIGM Band NON-REACTIVE; 45KDIGG Band NON-REACTIVE; 58KDIGG Band NON-REACTIVE; 66KDIGG Band NON-REACTIVE; 93KDIGG Band NON-REACTIVE; Lyme Antibodies, WB IgG NEGATIVE (NEGATIVE); Lyme Antibodies, WB IgM NEGATIVE (NEGATIVE)
[2022-10-08] MEDS: AMPICILLIN/SULBACTAM SOD 3,000 MG in 0.9 % SODIUM CHLORIDE 100 ML IV SCH ×2 (05:51→12:16)
[2022-10-08] MEDS: amLODIPine BESYLATE 5 MG TAB PO SCH (08:38)
[2022-10-08] MEDS: lisinopril 20 MG TAB PO SCH (08:38)
[2022-10-08] MEDS: PANTOprazole 40 MG TAB PO SCH (08:38)
[2022-10-08] MEDS: ASPIRIN 81 MG ECTAB PO SCH (08:38)
[2022-10-08] MEDS: dexAMETHasone 6 MG in SYRINGE 0 ML IV SCH (08:38)
[2022-10-08] MEDS: guaiFENesin 600 MG TABCR PO SCH (08:39)
--- NOTE | 2022-10-08 13:24 | Discharge Summary ---
Date of Service October 08, 2022 Admission HPI Per Admitting Provider Joelle Faith is a 77 year old female who presents to the ER with generalized fatigue and weakness. She reports taking a COVID test today which was positive. Unclear duration of symptoms as she recent went to [place] and reports feeling unwell even when she left on September 19. Progressively getting worse since that time with nasal congestion and cough. No shortness of breath. She travelled back from [place] on and getting progressively weaker at home therefore decided to come to the ER today. No subjective fevers but having chills throughout this time and these have also been getting worse the last week. Sinus pressure and drainage for the last 1 week. No shortness of breath or chest pain. Nausea with decreased appetite but no vomiting, abdominal pain or change in bowel habit. Discharge Data Allergies Allergy/AdvReac Type Severity Reaction Status Date / Time No Known Drug Allergies Allergy Unknown Verified 10/04/22 19:40 Ordered Studies 10/04/22 16:22 CT angio chest PE protocol Stat US venous doppler LE Stat Hospital Course (1) Acute sinusitis: Possible diagnosis why she is acutely getting worse. Recommend treating with Unasyn initially but can be changed to Augmentin when less nauseous. Take blood cultures and procalcitonin prior to giving antibiotics Dexamethasone should help with this in addition (2) COVID-19: Unclear how acute this is. Possibly the only cause of her generalized fatigue but given symptoms since September 19 and ongoing chills with progressive worsening this last week would favor secondary bacterial infection as above (no pneumonia on CXR). Given hypoxia and elevated CRP will treat with dexamethasone 6mg IV daily regardless as this may help with her sinusitis in addition (3) Hypoxia: Aim O2 sats > 90%. No significant pathology on CT would suggest mostly due to poor inspiration due to fatigue and obesity and should be encouraged to use incentive spirometer Possible micro-inflammatory changes not seen on imaging so as above will treat possible COVID infection with dexamethasone. Use albuterol PRN - no wheezing or exam but subjective improvement with duoneb given in the ER (4) HTN, goal below 140/90: Continue lisinopril 20mg PO daily and amlodipine 5mg PO daily (5) CHANTELLE (generalized anxiety disorder): Lorazepam PRN (6) Acid reflux disease: Make PPI scheduled while on dexamethasone Plan VTE Prophylaxis - Lovenox 40mg SQ daily Diet - regular Disposition - admit to med/surg Discharge Plan Discharge Items Patient Disposition: Home - Self-Care Reason For Visit: COVID-19 Discharge Diagnosis: 1. COVID-19 infection 2. Sinus infection Activity: As commented below Activity Comment: gradually increase your activities over the next week as tolerated Non-emergency contact: Primary Care Provider Call non-emergency contact if: you have any medication questions, your symptoms worsen and you have a fever Follow-up/Referrals: Gabrielle Blackwell MD [Primary Care Provider] - 10/18/22 11:00 am (APPOINTMENT WITH PRATIBHA ORTIZ) Diet: Regular Addtl Attending Provider Instructions: Mrs Faith, You were hospitalized for COVID-[address]. [address] scan of the lungs did not show any blood clots nor any pneumonia from COVID. Your doppler studies of the legs did not show DVT blood clots. Your blood cultures were negative (no bacteria in the bloodstream). It was suspected that you had developed a sinus infection in the midst of your COVID illness. You received antibiotics and steroids for the sinusitis. You gradually improved with most of your symptoms with time, steroids, and antibiotics. Recommendations - 1. please isolate at home for an additional 48 hours. If in 2 days you are feeling well, having no fevers, no significant cough, etc you can go out in public and end your isolation. 2. for sinus infection - * amoxicillin-clavulanate 875mg twice daily x 3 additional days, first dose tonight * many antibiotics can cause diarrhea, thus, eat a serving or two of yogurt each day and perhaps take an irpr-evi-fnqkjlc probiotic supplement * dexamethasone steroid - 6mg once daily x 3 days, first dose tomorrow on 10/09/22 * take with food * OK to use liau-bbw-jyzowmj mucinex up to 1200mg twice daily as needed for sinus congestion/cough * OK to use wmcv-hum-awkliml allergra or zyrtec or similar for congestion if desired 3. for prevention of DVT blood clots - * please INCREASE your aspirin to 81mg twice daily x 4 weeks * after 4 weeks you can go back to once daily dosing 4. to help protect your stomach from the increased aspirin dose please be sure to take your omeprazole acid administrative assistant data entry 40mg once daily every day 5. focus on good nutrition and hydration during your recovery at home 6. you likely have another 1-2 weeks of recovery left from your illness; your fatigue, cough, etc may linger during this time period and then ultimately resolve 7. for cough you may use albuterol inhaler via spacer - 2 puffs via spacer device every 4 hours as needed for cough/wheezing/shortness of breath; see handout on "spacer device" Follow-up - please see your family doctor in 1 week even if it is through telehealth Return to [facility] if - * you have fevers over 100 degrees * you have worsening shortness of breath * you have chest pains * you develop severe diarrhea * any other concerns It was our pleasure to care for you! -Dr Cosby Pending Studies at Discharge: No Stand-Alone Forms: My [facility], Smoking Cessation Medications and DC Order Prescriptions: New dexamethasone 6 mg tablet 6 mg PO DAILY 3 Days Qty: 3 0RF Rx Instructions: start 10/09/22; take with food. amoxicillin-pot clavulanate 875-125 mg tablet 1 tab PO BID 3 Days Qty: 6 0RF Rx Instructions: first dose PM of 10/08/22. albuterol sulfate [Ventolin HFA] 90 mcg/actuation HFA aerosol inhaler 2 inh inhalation Q4H PRN (Reason: shortness of breath or wheezing or cough) Qty: 6.7 0RF Rx Instructions: use with spacer device (DME) Aerochamber Plus Flow-Vu Spacer See Rx Instructions .Route Qty: 1 0RF Rx Instructions: As directed Continued amlodipine 5 mg tablet 5 mg PO DAILY Qty: 90 1RF lorazepam 0.5 mg tablet 0.5 mg PO TID PRN (Reason: Anxiety) Qty: 90 0RF lisinopril 10 mg tablet 20 mg PO QAM Qty: 180 1RF multivitamin [Daily Multi-Vitamin] tablet 1 tab PO DAILY cholecalciferol (vitamin D3) 2,000 unit tablet 2,000 units PO DAILY cyanocobalamin (vitamin B-12) 100 mcg tablet 100 mcg PO DAILY omeprazole 40 mg capsule,delayed release(DR/EC) 40 mg PO DAILY PRN (Reason: Heartburn) Qty: 90 1RF Changed aspirin [Ubaldo Low Dose Aspirin] 81 mg Tablet,Delayed Release (Dr/Ec) 81 mg PO BID Qty: 60 0RF Discharge Orders: Discharge Order (Routine); Ordered 10/08/22 Ordered By: Aron Hnad/Other Patient Handouts: Using an Inhaler with a Spacer Admission Data Admit Date/Time: 10/04/22 20:06 Attending Provider: Aron Cosby Admit Provider: Aron Kumar Primary Care Provider: Gabrielle Blackwell Coding Diagnoses Acute sinusitis J01.90 COVID-19 U07.1 Hypoxia R09.02 HTN, goal below 140/90 I10 CHANTELLE (generalized anxiety disorder) F41.1 Acid reflux disease K21.9
--- NOTE | 2022-10-08 18:21 | Hospitalist Progress Note ---
Date of Service October 07, 2022 Late entry Technical Assessment & Plan (1) Acute sinusitis: Plan: Possible diagnosis why she is acutely getting worse. Recommend treating with Unasyn initially but can be changed to Augmentin when less nauseous. Take blood cultures and procalcitonin prior to giving antibiotics Dexamethasone should help with this in addition (2) COVID-19: Plan: Unclear how acute this is. Possibly the only cause of her generalized fatigue but given symptoms since September 19 and ongoing chills with progressive worsening this last week would favor secondary bacterial infection as above (no pneumonia on CXR). Given hypoxia and elevated CRP will treat with dexamethasone 6mg IV daily regardless as this may help with her sinusitis in addition (3) Hypoxia: Plan: Aim O2 sats > 90%. No significant pathology on CT would suggest mostly due to poor inspiration due to fatigue and obesity and should be encouraged to use incentive spirometer Possible micro-inflammatory changes not seen on imaging so as above will treat possible COVID infection with dexamethasone. Use albuterol PRN - no wheezing or exam but subjective improvement with duoneb given in the ER (4) HTN, goal below 140/90: Plan: Continue lisinopril 20mg PO daily and amlodipine 5mg PO daily (5) CHANTELLE (generalized anxiety disorder): Plan: Lorazepam PRN (6) Acid reflux disease: Plan: Take PPI scheduled while on dexamethasone Plan VTE Prophylaxis - Lovenox 40mg SQ daily Diet - regular Disposition - home tomorrow Admission and Anticipated Discharge Date Admission Date: October 04, 2022 Subjective Patient feeling a little better each day. Potential for going home tomorrow discussed. Physical Exam Constitutional: WD/WN, vitals as above Eyes: PERRL, conjunctivae normal, anicteric sclerae ENMT: external ear and nose normal, oropharynx normal Neck: trachea midline, no thyromegaly Cardiovascular: RRR, no murmur, no edema Gastrointestinal (Abdomen): normal bowel sounds, soft, nontender, no hepatosplenomegaly Neurologic: PERRL, EOMI, accommodation nl, no face palsy, no dysarthria Psychiatric: A+Ox3, euthymic affect Results & Data Results & Data Vital Signs (Past 12 Hours) Vital Signs Temp Pulse Pulse Pulse Resp Resp Resp 10/08/22 08:00 10/08/22 16:13 36.8 C 77 16 10/08/22 16:11 94 H 88 22 18 10/08/22 07:04 36.8 C 64 16 BP Pulse Ox Pulse Ox Pulse Ox O2 Del Method 10/08/22 08:00 Room Air 10/08/22 16:13 128/68 94 10/08/22 16:11 92 95 Room Air 10/08/22 07:04 137/74 93 Room Air PG Care Time/CCT Total # of Minutes Spent Total Time Spent with Patient: Total time spent is greater than 50% in coordination of care (as documented) at patient's floor/unit and/or counseling patient: Coding Level of Care Code 67390 SUB INP/OBS CARE 04/03MIN Diagnoses Acute sinusitis J01.90 COVID-19 U07.1 Hypoxia R09.02 HTN, goal below 140/90 I10 CHANTELLE (generalized anxiety disorder) F41.1 Acid reflux disease K21.9 Time Spent (min) 25
== END 2022-10-08 18:07 | disposition home or self-care (01) | DRG 179 ==
LOC: ED 14:34 → SUATTDRO 20:06 → 3W 20:06

== ENCOUNTER 2024-05-09 01:43 | Inpatient (IN) ==
--- OUTSIDE RECORDS SUMMARY | 2024-05-09 01:46 | External Medical Summary | Summary of Care ---
Author Name Unknown Organization [facility] Address [address] [place] [address] Phone [phone] Care Team Providers Care Parts Counterperson Name Role Phone Gabrielle Blackwell MD Primary Care Provider Encounter Details Date Type Department Care Team (Late st Contact Info) Description 03/29/2024 Population Health External Data Unspecified Department Allergies No known active allergiesdocumented as of this encounter (statuses as of 03/29/2024) Medications ASPIRIN 81 MG PO CHEW 1 TABLET DAILY Active Cholecalciferol ( VITAMIN D) 25 MCG (1000 UT) Capsule Take by mouth daily. Active Omeprazole 40 MG Oral Capsule Delayed Release (PriLOSEC) Take 40 mg by mouth daily as needed. Active Multi-Day Oral Tablet Take 1 Tablet by mouth daily. Active Calcium 200 MG Oral Tablet Take 200 mg by mouth daily. Active Lisinopril 10 MG Oral Tablet (Prinivil) Take 10 mg by mouth daily. Active amLODIPine Besylate 5 MG Oral Tablet (Norvasc) Take 5 mg by mouth daily. Active Anastrozole 1 MG Oral Tablet (Arimidex) Take by mouth 1 Tablet in the morning. 90 Tablet 3 08/01/2021 Active documented as of this encounter (statuses as of 03/29/2024) Active Problems Problem Noted Date Diagnosed Date Malignant neoplasm of upper- outer quadrant of left breast in female, estrogen receptor positive 03/23/2020 Diverticula, colon 10/19/2013 Family history of colon cancer 10/19/2013 H/O hiatal hernia 10/19/2013 Hypertension goal BP (blood pressure) < 140/90 Reflux documented as of this encounter (statuses as of 03/29/2024) Immunizations Name Administration Dates Next Due Pneumococcal Polysaccharide PPV23 (Pneumovax) Seasonal Influenza Vac., MDV, IM, 0.5 mL (Fluzon e) 03/08/2014 Seasonal Influenza, PF, 6 M & above, IM , (FluLaval or Fluzone) 01/08/2019 Varicella Zoster Vaccine (Adult) 08/22/2012 documented as of this encounter Social History Tobacco Use Types Packs/Day Years Used Date Smoking Tobacco: Never Smokeless Tobacco: Never Alcohol Use Standard Drinks/Week Comments Yes 0 (1 standard drink = 0.6 oz pur e alcohol) occ Comments No Sex and Gender Information Value Date Recorded Sex Assigned at Not on file Legal Sex Female 5:27 AM EST Gender Identity Not on file Sexual Orientation Not on file documented as of this encounter Plan of Treatment Scheduled Procedures Name Priority Associated Diagnoses Date/Ti me COLONOSCOPY FLEXIBLE PROXIMA L DIAGNOSTIC Recall History of colonic polyps Health Maintenance Due Date Last Done Comments Albumin/Creatinine Ratio 06/26/1963 Hepatitis C Screening 06/26/1963 DTap/Tdap Vaccines (1 - Tdap) 1964 Zoster Vaccines (2 of 3) 10/17/2012 08/22/2012 Depression Screening 04/21/2015 04/21/2014 GFR 04/06/2022 04/06/2021, 12/0 10/2019, 08/16/2015, Additional history exists COVID-19 Vaccine (1 - 2023- season) 2023 Influenza Vaccine (FLU shot) (#1) 2023 02/14/2023, 02/17/2019, 01/08/2019, Additional history exists Colonoscopy 02/05/2026 02/05/2021, 01/09, 10/06/2014, Additional history exists DXA Scan 12/01/2026 12/02/2019 Pneumococcal Vaccine: 50+ Years Completed 12/10/2017, 08/22/2010 RETIRED - COLONOSCOPY-EVERY 5 YRS AGES 18-100 Discontinued 02/05/2021, 02/05/2021, 10/06/2014, Additional history exists HPV (Gardasil) Vaccine Aged Out No lo nger eligible based on patient's age to complete this topic Hepatitis B Vaccine Aged Out No longe r eligible based on patient's age to complete this topic MENINGOCOCCAL (MENACTRA/MENVEO) Aged Out No longer eligible based on patient's age to complete this topic documented as of this encounter Medical Devices Not on filedocumented as of this encounter Care Teams Parts Counterperson Relationship Specialty Start Date End Date Gabrielle Blackwell MD [address] [place] [address], [place] [address] PCP - General Family Medicine 08/16/15 documented as of this encounter
[2024-05-09] MEDS: KETOROLAC TROMETHAMINE 15 MG/ML VIAL IV STA (02:51)
[2024-05-09] MEDS: ONDANSETRON INJ 2 MG/ML 2 ML VIAL IV STA ×2 (02:51→04:04)
[2024-05-09 02:58] LABS: Basophils # (auto) 0.07 K/uL (0.00-0.20); Basophils % (auto) 0.6 %; Eosinophils # (auto) 0.14 K/uL (0.00-0.50); Eosinophils % (auto) 1.3 %; Hematocrit (blood only) 45.8 % (37.0-47.0); Hemoglobin 14.6 g/dl (12.0-16.0); Immature Granulocytes # (auto) 0.04 K/uL (0.01-0.20); Immature Granulocytes % (auto) 0.4 %; Lymphocytes # (auto) 0.56 K/uL (1.20-3.40); Lymphocytes % (auto) 5.1 %; Mean Corpuscular Hgb Conc 31.9 g/dL (32.0-36.0); Mean Corpuscular Volume 87.7 fL (80.0-100.0); Mean Platelet Volume 9.7 fL (9.4-12.4); Monocytes # (auto) 0.94 K/uL (0.11-0.59); Monocytes % (auto) 8.6 %; Neutrophils # (auto) 9.14 K/uL (1.40-6.50); Platelet Count 184 K/uL (130-400); RDW Coefficient of Variation 12.7 % (11.5-14.5); RDW Standard Deviation 40.8 fL (36.4-46.3); Red Blood Count 5.22 M/uL (4.20-5.40); White Blood Count 10.89 K/ul (4.8-10.8)
[2024-05-09 03:01] LABS: BUN Creatinine Ratio 21.9 (10-20); Calcium 9.1 mg/dl (8.6-10.3); Creatinine Clr Calc Pharmacy 60.8 ml/min; Potassium 3.5 mmol/L (3.5-5.1)
[2024-05-09 03:54] LABS: Appearance Urine Clear (Clear); Bacteria Urine Automated None Seen (None Seen); Bilirubin Urine 2+ (Negative); Blood Urine Negative (Negative); Cast Urine Automated 0-2 /lpf (0-2); Color Urine Dark Yellow; Glucose Urine UA Negative (Negative); Ketones Urine 2+ (Negative); Leukocyte Esterase Urine 1+ (Negative); Nitrite Urine Positive (Negative); Protein Urine 1+ (Negative); RBC Urine Automated 0-2 /hpf (0-2); Specific Gravity Urine 1.029 (1.000-1.030); Urobilinogen Urine Positive (Negative); pH Urine 6.5 (4.5-7.5)
[2024-05-09 03:55] LABS: Influenza A virus by PCR Negative (Neg); Influenza B virus by PCR Negative (Neg); RSV by PCR Negative (Neg); SARS CoV2 RNA(COVID-19) Ceph NEGATIVE (Negative)
[2024-05-09] MEDS: OPTIRAY 320 125ml IV ONE (03:55)
--- NOTE | 2024-05-09 03:59 | XRay Report ---
EXAM: XR chest 1V portable CLINICAL HISTORY: Sob TECHNIQUE: An X-ray image of the chest is obtained in AP projection. MARKED ROTATION. COMPARISON: Comparison is made with the previous chest x-ray dated 10/04/2022. FINDINGS: Pulmonary Parenchyma: Subtle peribronchial thickening and few fine nodular infiltrates are seen in bilateral mid and the low zones predominantly in the low zones. There is no evidence of consolidation, or collapse. The left CP angle appears hazy, it could be projectional or due to persistent small pleural effusion/pleural thickening. Heart and Mediastinum: Radiographically and as per exposure heart size and shape appear normal. No mediastinal widening or masses. No hilar or mediastinal lymphadenopathy. Bony Thorax: The bony thorax appears intact without fractures or deformities. Soft Tissues: Soft tissues overlying the chest wall are unremarkable. IMPRESSION: 1. There is a demonstration of subtle peribronchial thickening and few fine nodular infiltrates are seen in bilateral mid and the low zones predominantly in the low zones. The possibility of infective/inflammatory etiology cannot be entirely ruled out. 2. The left CP angle appears hazy, it could be projectional or due to persistent small pleural effusion/pleural thickening. 3. No significant interval change is noted as compared to the previous chest x-ray dated 10/04/2022. 4. Clinical correlation is advised. Electronically signed by Sahara Woods 05-09-2024 03:59 AM
[2024-05-09] MEDS: cefTRIAXone SODIUM 2,000 MG/50 ML BAG IV STA ×2 (04:04→04:57)
[2024-05-09 04:06] LABS: Troponin I High Sensitivity 5.3 pg/ml (0-14)
[2024-05-09] MEDS: AZITHROMYCIN 250 MG TAB PO ONE (04:07)
--- NOTE | 2024-05-09 04:17 | CT Scan Report ---
EXAM: CT abd pelvis wo con CLINICAL HISTORY: Flank pain. TECHNIQUE: Non-contrast CT of the abdomen and pelvis was performed, with the following protocol: axial images, and reconstructed coronal and sagittal images. No intravenous contrast was administered. One of the following dose reduction techniques was utilized for this exam: Automated exposure control, adjustment of the mA and/or kV according to patient size, and use of iterative reconstruction. COMPARISON: Comparison is made with CT abdomen pelvis IV con only 01/19/2020. FINDINGS: Abdomen: Liver: Normal in size, shape, and density. Multiple cystic lesions largest in segment 6 measuring 20 x 13 mm with retraction of the liver capsule ( much smaller than previous study likely after the intervention, please correlate clinically). Other smaller cysts are stable. Interval prominent intrahepatic biliary ducts mainly in left side. Gallbladder is not seen. Pancreas: Mild peripancreatic head fat stranding mainly in the groove likely representing inflammatory changes. relatively new finding. Pancreatic head, body, and tail are visualized and appear normal in size and density. No pancreatic masses or calcifications were noted. Spleen: Normal in size, shape, and density. No splenic lesions or masses were identified. Kidneys and Adrenal Glands: Both kidneys are normal in size, shape, and position. Cortical thickness is within normal limits. No renal calculi or hydronephrosis. Small left cortical cyst. stable Adrenal glands are unremarkable. Appendix: The appendix is normal in size without chaim appendiceal fat stranding and without an appendicolith. No evidence of appendiceal abscess or perforation. Pelvis: Urinary Bladder: Normal in contour and wall thickness. No intraluminal lesions. Uterus and Ovaries: Not well visualized Vagina: Normal in contour and wall thickness. Cervix: No evidence of mass or abnormal thickening. Peritoneal and Retroperitoneal Structures: No free fluid or abnormal fluid collections were identified within the abdomen or pelvis. No lymphadenopathy was noted. Bowel: The visualized bowel loops are normal in caliber and appearance. No evidence of bowel obstruction or wall thickening. Non complicaited colonic diverticolosis. stable Large hiatus hernia. mild interval enlargement. Bones and Soft Tissues: Pelvic bones and soft tissues are unremarkable. No fractures or abnormal masses were identified. IMPRESSION: 1. Multiple cystic lesions largest in segment 6 measuring 20 x 13 mm with retraction of the liver capsule ( much smaller than previous study likely after intervention, please correlate clinically) Other smaller cysts are stable. 2. Interval prominent intrahepatic biliary ducts mainly in left side with prominent CBD, may be age-related. please correlate clinically and with Lab findings. 3. Mild peripancreatic head fat stranding mainly in the groove, could be non-specific or early inflammatory changes. relatively new finding. Follow-up and clinical correlation is advised. 4. Non complicaited colonic diverticolosis. stable 5. Large hiatus hernia. mild interval enlargement. Electronically signed by Sahara Woods 05-09-2024 04:16 AM
--- NOTE | 2024-05-09 04:34 | CT Scan Report ---
EXAM: CT angio chest PE protocol CLINICAL HISTORY: ro PE. TECHNIQUE: CT angiography of the chest was performed with and without intravenous contrast with the following protocol: axial images with, reconstructed coronal and sagittal images. Non-contrast images were initially acquired, followed by contrast-enhanced images in arterial and venous phases. Intravenous contrast 85 ml opti 320 was administered using automated injection techniques. Bolus tracking was employed to optimize arterial phase imaging. One of these 3D techniques was utilized: Maximum Intensity Pixel (MIP), 3D Reconstructed Images, Volume Rendered Images, Surface Shaded Rendering. One of the following dose reduction techniques was utilized for this exam: Automated exposure control, adjustment of the mA and/or kV according to patient size, and use of iterative reconstruction. COMPARISON: 10/04/2022. FINDINGS: Aorta and Great Vessels: Ascending Aorta: Normal in caliber, no aneurysm, dissection, or significant atherosclerosis. Aortic Arch: Normal in caliber, no aneurysm, dissection, or significant atherosclerosis. Descending Aorta: Normal in caliber, no aneurysm, dissection, or significant atherosclerosis. Pulmonary Arteries: The main pulmonary artery and its branches are patent. No evidence of pulmonary embolism or significant stenosis. Heart: Cardiac Chambers: Normal in size. No evidence of cardiomegaly. Pericardium: No pericardial effusion or thickening. Lungs and Pleura: Multiple bilateral basal thick atelectatic plates. Lungs are clear without evidence of consolidation, collapse, or focal lesions. No pleural effusion or pleural thickening. Mediastinum: No mediastinal mass or abnormal lymphadenopathy. Normal appearance of the trachea and central bronchi. Hilar Structures: Hilar structures are normal without enlargement. Chest Wall: No mass lesions or abnormalities in the chest wall. Vascular Structures: Superior Vena Cava: Patent without evidence of stenosis or thrombus. Bones and Soft Tissues: No fractures, lytic, or blastic lesions of the visualized bony structures. Soft tissues are unremarkable. A hiatus hernia is noted. Upper abdominal cuts show multiple hepatic cysts. IMPRESSION: 1. No evidence of pulmonary embolism. 2. Multiple bilateral basal thick atelectatic plates. Electronically signed by Sahara Woods 05-09-2024 04:33 AM
[2024-05-09] MEDS: MoRPHine SULFATE 2 MG/ML CARP IV STA ×2 (04:51→07:24)
[2024-05-09 05:00] LABS: Albumin Level 3.9 gm/dl (3.4-5.0); Bilirubin Direct 2.8 mg/dl (0-0.2); Bilirubin,Total 4.3 mg/dl (0.2-1.0); Total Protein 7.4 gm/dl (6.0-8.3)
--- NOTE | 2024-05-09 05:17 | Emergency Department Note ---
History of Present Illness General Chief Complaint: Flank Pain Stated Complaint: KIDNEY PAIN,CHEST PAIN,THROWING UP Time Seen by Provider: 05/09/24 01:58 History of Present Illness Provider Complaint: flank pain Onset (ago): 2 day(s) Pain Consistency: intermittent Location: R flank Radiation: RUQ and RLQ Severity: moderate Maximum Pain Intensity: 8 Current Pain Intensity: 8 Quality: + stabbing and + sharp Relieved By: + nothing Exacerbated By: + nothing Context: no foreign travel, no possible food poisoning, no sick contacts, no recent antibiotic use, no recent surgery/procedure or no recent injury Associated Symptoms: + nausea, + vomiting and + diarrhea; no fever, no chills, no constipation, no dysuria, no hematemesis, no hematochezia, no melena, no hematuria, no syncope, no headache, no chest pain and no breathing difficulty Patient also reports dark urine. Home Medications Medication Instructions Recorded Confirmed Type multivitamin (Daily Multi-Vitamin 1 tab PO DAILY 07/30/18 03/23/24 History tablet) cholecalciferol (vitamin D3) 50 2,000 units PO DAILY 02/16/19 03/23/24 History mcg (2,000 unit) tablet cyanocobalamin (vitamin B-12) 100 100 mcg PO DAILY 02/16/19 03/23/24 History mcg tablet aspirin 81 mg tablet,delayed 81 mg PO BID #60 tabs 10/08/22 03/23/24 Rx release (Ubaldo Low Dose Aspirin) inhalational spacing device #1 ea 10/08/22 07/09/23 Rx (Aerochamber Plus Flow-Vu) guaifenesin 1,200 mg tablet, 1,200 mg PO BID PRN congestion #60 10/10/22 03/23/24 Rx extended release 12 hr (Mucinex) tabs omeprazole 40 mg capsule,delayed 40 mg PO DAILY PRN Heartburn #90 06/05/23 03/23/24 Rx release caps lisinopril 20 mg tablet 20 mg PO QAM #90 tabs 03/23/24 03/23/24 Rx Allergies Allergy/AdvReac Type Severity Reaction Status Date / Time No Known Drug Allergies Allergy Unknown Verified 03/23/24 13:52 Past Med/Surg History Problem List (Updated 05/09/24 @ 05:54 by Valdez Chowdary MD) Transaminitis (Acute) UGIB (upper gastrointestinal bleed) (Acute) Hypoxia (Acute) HTN, goal below 140/90 Medical History History of left breast cancer 12/16/2019 Mucinous carcinoma, 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 Hypokalemia Insomnia Calculus of ureterovesical junction (UVJ) 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 Acid reflux disease CHANTELLE (generalized anxiety disorder) Post herpetic neuralgia Vitamin D deficiency Surgical History H/O rotator cuff surgery Left History of bladder surgery "Lift" Hx of colonoscopy S/P lumpectomy, left breast With SLN biopsy on 02/16/2020 History of tubal ligation Hx of cataract surgery Bilateral;Had laser surgery as well Hx of BSO (bilateral salpingo-oophorectomy) History of hysterectomy History of herniorrhaphy History of cholecystectomy History of appendectomy History of facelift History of anesthesia reaction SLOW TO WAKE UP - REPORTS THAT THEY'VE HAD TO USE NARCAN TWICE BEFORE Family History Mother , 89yo Breast cancer Parkinsons disease Brother Colorectal cancer Father , in his 80s Heart disease Brother No problems noted. Sister , as infant No problems noted. Sister Alzheimer disease Sister No problems noted. Son MVA (motor vehicle accident) Son No problems noted. Son No problems noted. Son No problems noted. 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 Beliefs That Will Affect Care: None marital status: / Current Living Situation: Alone current occupational status: retired 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 How many Children do You have: 4 Feels Safe at Home: Yes Childhood Exposure to Second-Hand Smoke: No Diet: regular caffeine: Yes (4 cups/day) during the past year weight has: remained stable Dental Care, Regularly: Yes Physical Activity Frequency: Daily Seatbelt Use: always Sunscreen Use: Yes Assistive Devices: None Physical Exam 2 Vital Signs: Vital Signs - 24 hr 05/09/24 01:51 05/09/24 02:08 05/09/24 02:40 Temperature 36.5 C Temperature Source Temporal Artery Sc an Pulse Rate 90 95 H Pulse Rate [Apical ] Respiratory Rate 18 Blood Pressure 188/94 H Blood Pressure [Le ft Arm] Blood Pressure Talisha n 125 Blood Pressure Talisha n [Left Arm] Blood Pressure Pos ition [Left Arm] Pulse Oximetry 90 85 L Oxygen Delivery Me thod Room Air Room Air Nasal Can nula Oxygen Flow Rate 0 Sepsis Recent Feve r Within 48 Hours No Sepsis New/Unexpla ined Change in Men david Status No Sepsis Action Take n by Nursing No Action Required Oxygen Flow Rate - Titration 3 Fraction of Inspir ed Oxygen - Titrat ion 96 05/09/24 02:43 05/09/24 02:44 05/09/24 04:19 Temperature Temperature Source Pulse Rate Pulse Rate [Apical ] 87 90 Respiratory Rate 22 24 Blood Pressure Blood Pressure [Le ft Arm] 187/106 H 176/106 H Blood Pressure Talisha n Blood Pressure Talisha n [Left Arm] 133 129 Blood Pressure Pos ition [Left Arm] Semi-fowlers Semi-fowlers Pulse Oximetry 96 96 97 Oxygen Delivery Me thod Nasal Cannula Nasal Cannula Nasal Cannula Oxygen Flow Rate 3 2 3 Sepsis Recent Feve r Within 48 Hours Sepsis New/Unexpla ined Change in Men david Status Sepsis Action Take n by Nursing Oxygen Flow Rate - Titration Fraction of Inspir ed Oxygen - Titrat ion 05/09/24 05:00 Temperature 36.8 C Temperature Source Oral Pulse Rate Pulse Rate [Apical ] 87 Respiratory Rate 22 Blood Pressure Blood Pressure [Le ft Arm] 173/96 H Blood Pressure Talisha n Blood Pressure Talisha n [Left Arm] 121 Blood Pressure Pos ition [Left Arm] Semi-fowlers Pulse Oximetry 94 Oxygen Delivery Me thod Nasal Cannula Oxygen Flow Rate 3 Sepsis Recent Feve r Within 48 Hours Sepsis New/Unexpla ined Change in Men david Status Sepsis Action Take n by Nursing Oxygen Flow Rate - Titration Fraction of Inspir ed Oxygen - Titrat ion Physical Exam: Physical Exam GENERAL: oriented to person, place, and time. appears well-developed and well- nourished. She does not appear distressed. HENT: Exam performed. -Head: Normocephalic and atraumatic. -Right Ear: External ear normal. No mastoid erythema -Left Ear: External ear normal. No mastoid erythema -Mouth/Throat: The oropharynx is clear and moist. No trismus in the jaw. No dental abscesses or uvula swelling. No oropharyngeal exudate or tonsillar abscesses. EYES: Conjunctivae and EOM are normal.Right eye exhibits no discharge. Left eye exhibits no discharge. No scleral icterus. NECK: Normal range of motion. Neck supple. No JVD present. No tracheal deviation and normal range of motion present. CV: Normal rate, regular rhythm, normal heart sounds and intact distal pulses. There is no peripheral edema. Palpable radial pulses bue. PULM/CHEST: Effort normal and breath sounds normal. No respiratory distress. No stridor. no wheezes.no rales. -Chest Wall: no tenderness to palpation ABD: The abdomen is soft. Bowel sounds are normal. no distension. No mass is present. There is no tenderness. There is no rebound, no guarding, no Herrera's sign and no tenderness at McBurney's point. Rovsig negative. No CVA tenderness bilaterally. MUSC/SKEL: Normal range of motion. There is no peripheral edema, tenderness or deformity. NEURO: Motor and sensation grossly intact. SKIN: Skin is warm and dry. not diaphoretic. PSYCH: normal mood and affect. Behavior is normal. Judgment and thought content normal. Course Course 0158: The patient was evaluated in room C11. A complete history and physical exam was performed Cardiac monitoring: An order was placed for continuous cardiac monitoring. The monitor shows a rate of 90 with sinus rhythm interpreted by me 0245: Patient became hypoxic on room air. Supplemental oxygen was applied via nasal cannula which improved the patient's oxygen saturation. Will obtain chest x-ray on the patient as well as COVID influenza swab. 0320: Chest x-ray viewed by me shows a possible right-sided infiltrate. Will obtain CT of the chest to make sure there is no PE as well as pneumonia given the patient's recent hypoxia. 0400: Urinalysis is concerning for infection. Rocephin ordered for the patient. 0430: Vital signs stable on supplemental oxygen. CT of the abdomen pelvis shows multiple cystic lesions in the liver which are larger than previous scans. There has been interval development of the intraparotid biliary ducts mainly on the left side with prominent CBD and mild peripancreatic head fat stranding. CTA of the chest negative for PE or infiltrate. Will add on lipase and hepatic panel. 0450: Nursing approached me and the patient had an episode of coffee-ground emesis which was Hemoccult positive. Patient be started on Protonix bolus and drip. 0530: Vital signs stable on supplemental oxygen via nasal cannula. Labs show white blood cell count 10.89 hemoglobin 14.6 platelet count unremarkable. Electrolytes are unremarkable. Total bilirubin 4.3 direct bilirubin 2.8 AST 275 ALT 277 alkaline phosphatase 227. Lipase 8. Discussed case with Dr. Pagan on- call GI. We decided we would admit the patient to the medicine team and obtain MRCP. 0551: Vital signs stable. Discussed case with Dr. Pineda who admit the patient to his service. Administered Medications Sodium Chloride (Nss) 1,000 mls @ 125 mls/hr IV .Q8H SOLE Stop: 05/10/24 05:44 Last Admin: 05/09/24 05:37 Dose: 125 mls/hr Documented By: HI Discontinued Medications Azithromycin (Azithromycin 250 Mg Tab) 500 mg PO NOW ONE Stop: 05/09/24 03:18 Last Admin: 05/09/24 04:07 Dose: Not Given Documented By: AMERICO Ceftriaxone Sodium (Rocephin) 2,000 mg in 50 mls @ 100 mls/hr IV NOW STA Stop: 05/09/24 03:46 Last Admin: 05/09/24 04:57 Dose: Not Given Documented By: HI Ceftriaxone Sodium (Rocephin) 2,000 mg in 50 mls @ 100 mls/hr IV NOW STA Stop: 05/09/24 04:26 Last Infusion: 05/09/24 04:45 Dose: Infused Documented By: Admin: 05/09/24 04:04 Dose: 100 mls/hr Documented By: AMERICO Pantoprazole Sodium 80 mg/ (Dextrose) 120 mls @ 480 mls/hr IV NOW ONE Stop: 05/09/24 04:59 Last Admin: 05/09/24 05:39 Dose: 480 mls/hr Documented By: HI Ioversol (Optiray 320 125ml) 85 ml IV ONCE ONE Stop: 05/09/24 03:56 Last Admin: 05/09/24 03:55 Dose: 85 ml Documented By: GUERO Ketorolac Tromethamine (Ketorolac Tromethamine 15 Mg/Ml Vial) 15 mg IV NOW STA Stop: 05/09/24 02:47 Last Admin: 05/09/24 02:51 Dose: 15 mg Documented By: HI Morphine Sulfate (Morphine Sulfate 2 Mg/Ml Carp) 2 mg IV NOW STA Stop: 05/09/24 04:29 Last Admin: 05/09/24 04:51 Dose: 2 mg Documented By: HI Ondansetron HCl (Ondansetron Inj 2 Mg/Ml 2 Ml Vial) 4 mg IV NOW STA Stop: 05/09/24 02:47 Last Admin: 05/09/24 02:51 Dose: 4 mg Documented By: HI Ondansetron HCl (Ondansetron Inj 2 Mg/Ml 2 Ml Vial) 4 mg IV NOW STA Stop: 05/09/24 04:00 Last Admin: 05/09/24 04:04 Dose: 4 mg Documented By: AMERICO Medical Decision Making Laboratory Data Attestation: I reviewed the patient's lab results. 05/09/24 01:59 05/09/24 01:59 Lab Results 05/09/24 05/09/24 05/09/24 Range/Units 01:59 02:56 03:27 WBC 10.89 H (4.8-10.8) K/ul RBC 5.22 (4.20-5.40) M/uL Hgb 14.6 (12.0-16.0) g/dl Hct 45.8 (37.0-47.0) % MCV 87.7 (80.0-100.0) fL MCH 28.0 (25.0-34.0) pg MCHC 31.9 L (32.0-36.0) g/dL RDW Std Deviation 40.8 (36.4-46.3) fL RDW Coeff of Jeffery 12.7 (11.5-14.5) % Plt Count 184 (130-400) K/uL MPV 9.7 (9.4-12.4) fL Immature Gran % (Auto) 0.4 % Neut % (Auto) 84.0 % Lymph % (Auto) 5.1 % [place] % (Auto) 8.6 % Eos % (Auto) 1.3 % Baso % (Auto) 0.6 % Neut # (Auto) 9.14 H (1.40-6.50) K/uL Lymph # (Auto) 0.56 L (1.20-3.40) K/uL [place] # (Auto) 0.94 H (0.11-0.59) K/uL Eos # (Auto) 0.14 (0.00-0.50) K/uL Baso # (Auto) 0.07 (0.00-0.20) K/uL Immature Gran # (Auto) 0.04 (0.01-0.20) K/uL Sodium 138 (136-145) mmol/L Potassium 3.5 (3.5-5.1) mmol/L Chloride 102 (98-107) mmol/L Carbon Dioxide 32 (21-32) mmol/L Anion Gap 4 (3-11) BUN 16 (6-23) mg/dl Creatinine 0.73 (0.6-1.2) mg/dl Est Cr Clr Drug Dosing 60.8 ml/min eGFR 84.12 BUN/Creatinine Ratio 21.9 H (10-20) Glucose 130 H (70-99(Fasting)) mg/dl Calcium 9.1 (8.6-10.3) mg/dl Total Bilirubin 4.3 H (0.2-1.0) mg/dl Direct Bilirubin 2.8 H (0-0.2) mg/dl AST 275 H (13-39) U/L ALT 277 H (7-52) U/L Alkaline Phosphatase 227 H (34-104) U/L Troponin I High Sens 5.3 (0-14) pg/ml Total Protein 7.4 (6.0-8.3) gm/dl Albumin 3.9 (3.4-5.0) gm/dl Lipase 8 L (11-82) U/L Urine Color Dark Yellow Urine Appearance Clear (Clear) Urine pH 6.5 (4.5-7.5) Ur Specific [place] 1.029 (1.000-1.030) Urine Protein 1+ H (Negative) Urine Glucose (UA) Negative (Negative) Urine Ketones 2+ H (Negative) Urine Blood Negative (Negative) Urine Nitrite Positive A (Negative) Urine Bilirubin 2+ H (Negative) Urine Urobilinogen Positive H (Negative) Ur Leukocyte Esterase 1+ H (Negative) Urine WBC (Auto) 6-10 H (0-5) /hpf Urine RBC (Auto) 0-2 (0-2) /hpf U Hyaline Cast (Auto) 0-2 (0-2) /lpf U Epithel Cells (Auto) 6-10 H (0-2) /hpf Urine Bacteria (Auto) None Seen (None Seen) SARS-CoV-2 (PCR) NEGATIVE (Negative) Influenza Type A (PCR) Negative (Neg) Influenza Type B (PCR) Negative (Neg) RSV (RT-PCR) Negative (Neg) Imaging Data Attestation: I personally reviewed and interpreted this imaging study as follows: My Impression: Chest x-ray viewed by me shows a possible right-sided infiltrate. Radiologist's Impression: Abdomen/Pelvis CT 05/09/24 01:59 EXAM: CT abd pelvis wo con CLINICAL HISTORY: Flank pain. TECHNIQUE: Non-contrast CT of the abdomen and pelvis was performed, with the following protocol: axial images, and reconstructed coronal and sagittal images. No intravenous contrast was administered. One of the following dose reduction techniques was utilized for this exam: Automated exposure control, adjustment of the mA and/or kV according to patient size, and use of iterative reconstruction. COMPARISON: Comparison is made with CT abdomen pelvis IV con only 01/19/2020. FINDINGS: Abdomen: Liver: Normal in size, shape, and density. Multiple cystic lesions largest in segment 6 measuring 20 x 13 mm with retraction of the liver capsule ( much smaller than previous study likely after the intervention, please correlate clinically). Other smaller cysts are stable. Interval prominent intrahepatic biliary ducts mainly in left side. Gallbladder is not seen. Pancreas: Mild peripancreatic head fat stranding mainly in the groove likely representing inflammatory changes. relatively new finding. Pancreatic head, body, and tail are visualized and appear normal in size and density. No pancreatic masses or calcifications were noted. Spleen: Normal in size, shape, and density. No splenic lesions or masses were identified. Kidneys and Adrenal Glands: Both kidneys are normal in size, shape, and position. Cortical thickness is within normal limits. No renal calculi or hydronephrosis. Small left cortical cyst. stable Adrenal glands are unremarkable. Appendix: The appendix is normal in size without chaim appendiceal fat stranding and without an appendicolith. No evidence of appendiceal abscess or perforation. Pelvis: Urinary Bladder: Normal in contour and wall thickness. No intraluminal lesions. Uterus and Ovaries: Not well visualized Vagina: Normal in contour and wall thickness. Cervix: No evidence of mass or abnormal thickening. Peritoneal and Retroperitoneal Structures: No free fluid or abnormal fluid collections were identified within the abdomen or pelvis. No lymphadenopathy was noted. Bowel: The visualized bowel loops are normal in caliber and appearance. No evidence of bowel obstruction or wall thickening. Non complicaited colonic diverticolosis. stable Large hiatus hernia. mild interval enlargement. Bones and Soft Tissues: Pelvic bones and soft tissues are unremarkable. No fractures or abnormal masses were identified. IMPRESSION: 1. Multiple cystic lesions largest in segment 6 measuring 20 x 13 mm with retraction of the liver capsule ( much smaller than previous study likely after intervention, please correlate clinically) Other smaller cysts are stable. 2. Interval prominent intrahepatic biliary ducts mainly in left side with prominent CBD, may be age-related. please correlate clinically and with Lab findings. 3. Mild peripancreatic head fat stranding mainly in the groove, could be non-specific or early inflammatory changes. relatively new finding. Follow-up and clinical correlation is advised. 4. Non complicaited colonic diverticolosis. stable 5. Large hiatus hernia. mild interval enlargement. Electronically signed by Sahara Woods 05-09-2024 04:16 AM Chest X-Ray 05/09/24 02:46 EXAM: XR chest 1V portable CLINICAL HISTORY: Sob TECHNIQUE: An X-ray image of the chest is obtained in AP projection. MARKED ROTATION. COMPARISON: Comparison is made with the previous chest x-ray dated 10/04/2022. FINDINGS: Pulmonary Parenchyma: Subtle peribronchial thickening and few fine nodular infiltrates are seen in bilateral mid and the low zones predominantly in the low zones. There is no evidence of consolidation, or collapse. The left CP angle appears hazy, it could be projectional or due to persistent small pleural effusion/pleural thickening. Heart and Mediastinum: Radiographically and as per exposure heart size and shape appear normal. No mediastinal widening or masses. No hilar or mediastinal lymphadenopathy. Bony Thorax: The bony thorax appears intact without fractures or deformities. Soft Tissues: Soft tissues overlying the chest wall are unremarkable. IMPRESSION: 1. There is a demonstration of subtle peribronchial thickening and few fine nodular infiltrates are seen in bilateral mid and the low zones predominantly in the low zones. The possibility of infective/inflammatory etiology cannot be entirely ruled out. 2. The left CP angle appears hazy, it could be projectional or due to persistent small pleural effusion/pleural thickening. 3. No significant interval change is noted as compared to the previous chest x-ray dated 10/04/2022. 4. Clinical correlation is advised. Electronically signed by Sahara Woods 05-09-2024 03:59 AM Chest CTA 05/09/24 03:19 EXAM: CT angio chest PE protocol CLINICAL HISTORY: ro PE. TECHNIQUE: CT angiography of the chest was performed with and without intravenous contrast with the following protocol: axial images with, reconstructed coronal and sagittal images. Non-contrast images were initially acquired, followed by contrast-enhanced images in arterial and venous phases. Intravenous contrast 85 ml opti 320 was administered using automated injection techniques. Bolus tracking was employed to optimize arterial phase imaging. One of these 3D techniques was utilized: Maximum Intensity Pixel (MIP), 3D Reconstructed Images, Volume Rendered Images, Surface Shaded Rendering. One of the following dose reduction techniques was utilized for this exam: Automated exposure control, adjustment of the mA and/or kV according to patient size, and use of iterative reconstruction. COMPARISON: 10/04/2022. FINDINGS: Aorta and Great Vessels: Ascending Aorta: Normal in caliber, no aneurysm, dissection, or significant atherosclerosis. Aortic Arch: Normal in caliber, no aneurysm, dissection, or significant atherosclerosis. Descending Aorta: Normal in caliber, no aneurysm, dissection, or significant atherosclerosis. Pulmonary Arteries: The main pulmonary artery and its branches are patent. No evidence of pulmonary embolism or significant stenosis. Heart: Cardiac Chambers: Normal in size. No evidence of cardiomegaly. Pericardium: No pericardial effusion or thickening. Lungs and Pleura: Multiple bilateral basal thick atelectatic plates. Lungs are clear without evidence of consolidation, collapse, or focal lesions. No pleural effusion or pleural thickening. Mediastinum: No mediastinal mass or abnormal lymphadenopathy. Normal appearance of the trachea and central bronchi. Hilar Structures: Hilar structures are normal without enlargement. Chest Wall: No mass lesions or abnormalities in the chest wall. Vascular Structures: Superior Vena Cava: Patent without evidence of stenosis or thrombus. Bones and Soft Tissues: No fractures, lytic, or blastic lesions of the visualized bony structures. Soft tissues are unremarkable. A hiatus hernia is noted. Upper abdominal cuts show multiple hepatic cysts. IMPRESSION: 1. No evidence of pulmonary embolism. 2. Multiple bilateral basal thick atelectatic plates. Electronically signed by Sahara Woods 05-09-2024 04:33 AM ECG Data Attestation: I personally reviewed and interpreted this ECG as follows: Rate (beats per minute): 90 Rhythm: normal sinus Findings: no ST depression, no ST elevation or no prolonged QT [facility] Narrative 0158: The patient was evaluated in room C11. A complete history and physical exam was performed Cardiac monitoring: An order was placed for continuous cardiac monitoring. The monitor shows a rate of 90 with sinus rhythm interpreted by me 0245: Patient became hypoxic on room air. Supplemental oxygen was applied via nasal cannula which improved the patient's oxygen saturation. Will obtain chest x-ray on the patient as well as COVID influenza swab. 0320: Chest x-ray viewed by me shows a possible right-sided infiltrate. Will obtain CT of the chest to make sure there is no PE as well as pneumonia given the patient's recent hypoxia. 0400: Urinalysis is concerning for infection. Rocephin ordered for the patient. 0430: Vital signs stable on supplemental oxygen. CT of the abdomen pelvis shows multiple cystic lesions in the liver which are larger than previous scans. There has been interval development of the intraparotid biliary ducts mainly on the left side with prominent CBD and mild peripancreatic head fat stranding. CTA of the chest negative for PE or infiltrate. Will add on lipase and hepatic panel. 0450: Nursing approached me and the patient had an episode of coffee-ground emesis which was Hemoccult positive. Patient be started on Protonix bolus and drip. 0530: Vital signs stable on supplemental oxygen via nasal cannula. Labs show white blood cell count 10.89 hemoglobin 14.6 platelet count unremarkable. Electrolytes are unremarkable. Total bilirubin 4.3 direct bilirubin 2.8 AST 275 ALT 277 alkaline phosphatase 227. Lipase 8. Discussed case with Dr. Pagan on- call GI. We decided we would admit the patient to the medicine team and obtain MRCP. 0551: Vital signs stable. Discussed case with Dr. Pineda who admit the patient to his service. Impression & Plan Hypoxia, UGIB (upper gastrointestinal bleed), Transaminitis Critical Care Time Critical Care Time: Yes Total Critical Care Time: 53 I have personally spent greater than 53 minutes of critical care time in the direct management of this patient. This includes bedside care, interpretation of diagnostic studies, and testing, discussion with consultants, patient, and family members, and other required patient management activities. This 53 minutes is in excess of all separately billable procedures. Discharge Plan Visit Data Chief Complaint: Flank Pain Stated Complaint: KIDNEY PAIN,CHEST PAIN,THROWING UP ED Provider: Valdez Chowdary Discharge Problem: Hypoxia, UGIB (upper gastrointestinal bleed), Transaminitis Patient Disposition: Admitted As Inpatient Forms Stand Alone Forms: My [facility] Prescriptions Prescriptions: No Action omeprazole 40 mg capsule,delayed release(DR/EC) 40 mg PO DAILY PRN (Reason: Heartburn) Qty: 90 1RF Mucinex 1,200 mg tablet extended release 12hr 1,200 mg PO BID PRN (Reason: congestion) Qty: 60 0RF multivitamin [Daily Multi-Vitamin] tablet 1 tab PO DAILY cholecalciferol (vitamin D3) 2,000 unit tablet 2,000 units PO DAILY cyanocobalamin (vitamin B-12) 100 mcg tablet 100 mcg PO DAILY lisinopril 20 mg tablet 20 mg PO QAM Qty: 90 1RF (DME) Aerochamber Plus Flow-Vu Spacer See Rx Instructions .Route Qty: 1 0RF Rx Instructions: As directed aspirin [Ubaldo Low Dose Aspirin] 81 mg Tablet,Delayed Release (Dr/Ec) 81 mg PO BID Qty: 60 0RF Referrals Referrals: Gabrielle Blackwell MD [Primary Care Provider] -
[2024-05-09] MEDS: SODIUM CHLORIDE 0.9% 1,000 ML IV SCH (05:37)
[2024-05-09] MEDS: PANTOprazole 80 MG in DEXTROSE 5% 100 ML IV ONE (05:39)
[2024-05-09] MEDS: PANTOPRAZOLE BOLUS/DRIP IV STA (05:46)
[2024-05-09] MEDS: PANTOprazole 40 MG in DEXTROSE 5% MINI-B 100 ML IV SCH (05:53)
--- NOTE | 2024-05-09 05:59 | History & Physical Report ---
Date of Service May 09, 2024 Assessment & Plan (1) Transaminitis: (2) Hypoxia: (3) UGIB (upper gastrointestinal bleed): (4) Nausea & vomiting: Plan Patient is a 78-year-old female with past medical history of hypertension, CHANTELLE, breast cancer, cholecystectomy status. She presented to the ED for concern for kidney stones with right-sided flank pain, dark yellow urine, nausea, vomiting for 2 days. She was found to have elevated LFTs and then well in ED became hypoxic with oxygen level 85% on room air and began to vomit coffee-ground emesis. She is being admitted for MRCP, oxygen titration, and GI bleed workup. #abnormal LFTs Total bili 4.3, direct bili 2.8, AST 275, ALT 277, alk phos 227 lipase WNL patient does have history of cholecystectomy AP CT showed multiple cystic lesions on liver that are stable, interval prominent intrahepatic biliary ducts mainly on left side with prominent CBD, mild Peripancreatic head fat stranding, diverticulosis, hiatal hernia GI consulted MRCP ordered Pain control with morphine 2/4 Mg IV as needed - avoid Tylenol with transaminitis and avoid Toradol with potential GI bleed Antibiotic coverage with ceftriaxone 2G IV Q24 and Flagyl 500 Mg IV every 8 hours trend CMP Antimitochondrial antibody, TRISTON, sed rate, PT/INR ordered on admission no previous hepatitis labs on file differential includes but not limited to primary biliary cirrhosis, Phoenix's disease, hemochromatosis, hepatitis #hypoxia 85% on RA -> 3 L NC Suspect secondary to atelectasis with poor lung expansion with pain Low concern for aspiration after CTA review, bilateral basal thick atelectatic plates COVID/flu/RSV negative Oxygen as needed for O2 less than 94%, wean as tolerated Incentive spirometry #GI bleed patient with coffee-ground emesis and positive Hemoccult in ED patient stated she has had colonoscopies in the past that showed polyps, no other abnormalities; she has never had an EGD BUN 16 H&H stable Protonix drip started in ED Add famotidine IV N.p.o. GI consulted as above #nausea and vomiting Nausea and vomiting x 2 days Does appear clinically dry and BUN/CR 21.9 Electrolytes stable, trend BMP and mag Continue NSS at 125 mL/hour started in ED maintain adequate nausea and vomiting control with upcoming MRCP Zofran prn, Compazine prn for breakthrough nausea concern for food poisoning with recent concerning meal, stool cultures ordered mild leukocytosis, WBC 10.89 low suspicion for sepsis on admission, VSS, afebrile trend CBC Chronic stable diagnoses: HTNhold lisinopril with n.p.o. 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 Dispo: PCU Admission and Anticipated Discharge Date Admission Date: 05/09/2024 History of Present Illness Chief Complaint: flank pain Primary Care Provider: Gabrielle Blackwell MD Patient is a 78-year-old female with past medical history of hypertension, CHANTELLE, breast cancer, cholecystectomy status. She presented to the ED for concern for kidney stones with right-sided flank pain, dark yellow urine, nausea, vomiting for 2 days. She was found to have elevated LFTs and then well in ED became hypoxic with oxygen level 85% on room air and began to vomit coffee-ground emesis. She is being admitted for MRCP, oxygen titration, and GI bleed workup. Patient seen at bedside. She appears diaphoretic, pale, ill-appearing. She stated that her symptoms began approximately 2 days ago with right-sided flank pain along with abdominal pain that is diffuse. She also endorses feeling feverish and with chills. Her last bowel movement was yesterday 05/08. She denies any dizziness, lightheadedness, shortness of breath, chest pain. She stated she feels like she did not aspirate and she does not feel short of breath. After receiving 2 Mg IV morphine in ED she still complains of 7/10 abdominal pain. Suspect hypoxia secondary to poor lung expansion with pain. She did state a few days ago she ate bread with butter built into it that was pretty old, concern for food poisoning. Patient is agreeable to admission and to obtain MRCP Patient does not use nicotine products or drink alcohol. She lives at home alone, her is . She denies past history of diabetes, COPD, asthma. 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 She does not use any oxygen at baseline. She did not get her home medications yesterday due to the vomiting. She wishes to be full c ode. Allergies Allergy/AdvReac Type Severity Reaction Status Date / Time No Known Drug Allergies Allergy Unknown Verified 03/23/24 13:52 Home Medications Medication Instructions Recorded Confirmed Type multivitamin (Daily Multi-Vitamin 1 tab PO DAILY 07/30/18 05/09/24 History tablet) cholecalciferol (vitamin D3) 50 2,000 units PO DAILY 02/16/19 05/09/24 History mcg (2,000 unit) tablet cyanocobalamin (vitamin B-12) 100 100 mcg PO DAILY 02/16/19 05/09/24 History mcg tablet aspirin 81 mg tablet,delayed 81 mg PO BID #60 tabs 10/08/22 05/09/24 Rx release (Ubaldo Low Dose Aspirin) guaifenesin 1,200 mg tablet, 1,200 mg PO BID PRN congestion #60 10/10/22 05/09/24 Rx extended release 12 hr (Mucinex) tabs omeprazole 40 mg capsule,delayed 40 mg PO DAILY PRN Heartburn #90 06/05/23 05/09/24 Rx release caps lisinopril 20 mg tablet 20 mg PO QAM #90 tabs 03/23/24 05/09/24 Rx Past Med/Surg History Problem List Nausea & vomiting Transaminitis (Acute) UGIB (upper gastrointestinal bleed) (Acute) Hypoxia (Acute) HTN, goal below 140/90 Medical History History of left breast cancer 12/16/2019 Mucinous carcinoma, 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 Hypokalemia Insomnia Calculus of ureterovesical junction (UVJ) 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 Acid reflux disease CHANTELLE (generalized anxiety disorder) Post herpetic neuralgia Vitamin D deficiency Surgical History H/O rotator cuff surgery Left History of bladder surgery "Lift" Hx of colonoscopy S/P lumpectomy, left breast With SLN biopsy on 02/16/2020 History of tubal ligation Hx of cataract surgery Bilateral;Had laser surgery as well Hx of BSO (bilateral salpingo-oophorectomy) History of hysterectomy History of herniorrhaphy History of cholecystectomy History of appendectomy History of facelift History of anesthesia reaction SLOW TO WAKE UP - REPORTS THAT THEY'VE HAD TO USE NARCAN TWICE BEFORE Family History Mother , 89yo Breast cancer Parkinsons disease Brother Colorectal cancer Father , in his 80s Heart disease Brother No problems noted. Sister , as infant No problems noted. Sister Alzheimer disease Sister No problems noted. Son MVA (motor vehicle accident) Son No problems noted. Son No problems noted. Son No problems noted. 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 Shipping Required: No Beliefs That Will Affect Care: None marital status: / Current Living Situation: Alone current occupational status: retired 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 How many Children do You have: 4 Other Information That Helps Us Care for You: No Feels Safe at Home: Yes Safety Concerns: Feels Safe At This Time Childhood Exposure to Second-Hand Smoke: No Diet: regular caffeine: Yes (4 cups/day) during the past year weight has: remained stable Dental Care, Regularly: Yes Physical Activity Frequency: Daily Seatbelt Use: always Sunscreen Use: Yes Assistive Devices: None Review of Systems Review of Systems: See HPI Physical Exam Physical Exam: The patient is awake, alert and oriented 3, pale, diaphoretic, ill-appearing HEENT- EOMI, mucous membranes dry Hearing grossly intact. Heart-normal S1 and S2. No murmurs, rubs or gallops. Lungs - decreased bilaterally, no respiratory distress, no accessory muscle use. 3L NC Abdomen-normal bowel sounds and soft. No ascites noted. Extremities- no clubbing, cyanosis, or edema. Results & Data Results & Data Vital Signs (Past 12 Hours) Vital Signs Temp Pulse Pulse Resp BP BP Pulse Ox 05/09/24 05:00 36.8 C 87 22 173/96 H 94 05/09/24 04:19 90 24 176/106 H 97 05/09/24 02:44 96 05/09/24 02:43 87 22 187/106 H 96 05/09/24 02:40 85 L 05/09/24 02:08 95 H 05/09/24 01:51 36.5 C 90 18 188/94 H 90 O2 Del Method O2 Flow Rate 05/09/24 05:00 Nasal Cannula 3 05/09/24 04:19 Nasal Cannula 3 05/09/24 02:44 Nasal Cannula 2 05/09/24 02:43 Nasal Cannula 3 05/09/24 02:40 Room Air, Nasal Cannula 0 05/09/24 02:08 05/09/24 01:51 Room Air Laboratory Results Reviewed CBC, CMP, lipase, troponin, UA, COVID/flu/RSV Diagnostic Findings reviewed CXR, chest CTA, AP CT ECG Additional Comments: NSR, rate 98, QTc 467 Code Status & VTE Plan Code Status full code VTE Prophylaxis Plan VTE Prophylaxis will be ordered: Yes Supervising Physician Co-Signing Physician Notes Attending addendum: I have physically seen this patient, have supervised the JEREMY's activities, and agree with the H&P unless as otherwise noted. Assessment and Plan: The patient is a 78-year-old female with past medical history including hypertension, CHANTELLE, breast cancer, status postcholecystectomy status. She presents to the emergency department with concern regarding right-sided flank pain, dark yellow urine, nausea, and vomiting for 2 days. Emergency department she was found to have elevated LFTs, and hypoxia with pulse ox 85% on room air. While in the emergency department, she proceeded to have coffee-ground emesis, and was started on Protonix bolus/drip. She is admitted to the [facility] for further liver workup, including MRCP, and to address potential GI bleed. #Abnormal LFTs- Total bilirubin 4.3, direct bilirubin 2.8, AST 275, ALT 277 and alkaline phosphatase 227. Lipase is normal CT scan of abdomen and pelvis showed multiple cystic lesions on liver that are s table, interval prominent intrahepatic biliary ducts mainly on the left side with prominent CBD, mild peripancreatic fat stranding, diverticulosis, and hiatal hernia. Pain management with morphine as noted Has been started on ceftriaxone 2 g IV in ED, which be continued every 24 hours, and add Flagyl 5 mg IV every 8 hours Check a sed rate, TRISTON and antimitochondrial antibody Order MRCP IV fluids as noted Consult gastroenterology Hypoxia-pulse ox 85% on room air, improving to 94% on 3 L nasal cannula Likely associated atelectasis and poor lung expansion associated with abdominal pain COVID, flu, RSV testing negative Incentive spirometry and DuoNebs as noted GI bleed- Likely secondary to physiologic stress from above Protonix IV as noted, add famotidine 20 mg IV every 12 hours Antibiotics as noted Consult gastroenterology Remaining orders and notations as noted PG Care Time/CCT Total # of Minutes Spent Total Time Spent with Patient: Total time spent is greater than 50% in coordination of care (as documented) at patient's floor/unit and/or counseling patient: Coding Level of Care Code 83140 INT INP/OBS CARE 3/75MIN Diagnoses Transaminitis R74.01 Hypoxia R09.02 UGIB (upper gastrointestinal bleed) K92.2 Nausea & vomiting R11.2
[2024-05-09] MEDS ORDERED: MoRPHine SULFATE 2 MG/ML CARP IV PRN (06:15)
[2024-05-09 06:49] LABS: INR 1.1 (0.9-1.1); Prothrombin Time 11.7 Seconds (9.0-12.0)
[2024-05-09] MEDS: metroNIDAZOLE 500 MG/100 ML BAG IV STA (07:24)
[2024-05-09] MEDS: PROCHLORPERAZINE 10 MG in SYRINGE 8 ML IV ONE (07:24)
[2024-05-09] MEDS: FAMOTIDINE 20MG IV PUSH 20 MG/5 ML SYR IV STA (07:32)
--- NOTE | 2024-05-09 10:10 | Magnetic Resonance Report ---
MR MRCP HISTORY: 78 years-old Female Transaminitis, prominent intrahepatic biliary duct abnormal LFTs with a cute nausea and vomiting COMPARISON: CT abdomen and pelvis of same day also 01/19/2020 TECHNIQUE: MRCP was obtained according to institutional protocol without the use of IV contrast. FINDINGS: Moderate sized hiatal hernia. No bowel obstruction or bowel wall thickening. Colonic diverticulosis. No ascites or hydronephrosis. Renal cysts measure up to 1.6 cm within the upper pole left kidney. No abdominal aortic aneurysm or lymphadenopathy. Hepatic cysts have decreased in size from the 2019 comparison. Pancreatic atrophy. There are a few ravi bcentimeter cystic foci in the pancreas measuring up to 8 mm suggestive of probable sidebranch IPMN's . Intrahepatic and extrahepatic biliary ductal dilation with filling defects within the mid to distal common bile duct measuring up to 8 mm. The gallbladder is reportedly surgically absent. Motion degraded exam. IMPRESSION: 1. Motion degraded exam. 2. Cholecystectomy with choledocholithiasis resulting in intrahepatic and extrahepatic biliary ductal dilation. 3. 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 4. Hepatic cysts have decreased in size from CT comparison from 2019. ACT 112: Negative or not required by law. The above report was generated using voice recognition software. It may contain grammatical, syntax o r spelling errors. Electronically signed by: Quoc Gomes M.D. 05/09/2024 10:08 AM
--- NOTE | 2024-05-09 10:25 | Gastrointestinal Consultation ---
Date of Consultation May 09, 2024 Assessment & Plan (1) Transaminitis: Pleasant woman with abdominal pain and vomiting with new transaminitis. The only thing that I can see that will cause that abrupt of a rise in LFT's and have pain with it are CBD stones. MRCP confirms that she does have choledochol ithiasis. Will discuss with Dr. Mccormack in morning about ERCP and the timing of it. History of Present Illness Reason for Consultation: elevated LFT's, coffee ground emesis Attending Physician: Giovanni Patterson MD History of Present Illness 78 year old female who has been having abdominal pain and vomiting for the past three days. She finally evolved to dry heaves and then, this morning she vomited some coffee ground looking emesis. She describes the pain as "severe" and "through her fat". She also says it radiates into her kidneys. She is not sure she has had any fever though. She has not had bowel movement issues. She did have her gallbladder out 54 years ago for stones. On admit her LFT's were fairly significantly elevated with them being normal earlier this year. Allergies Allergy/AdvReac Type Severity Reaction Status Date / Time No Known Drug Allergies Allergy Unknown Verified 03/23/24 13:52 Home Medications Medication Instructions Recorded Confirmed Type multivitamin (Daily Multi-Vitamin 1 tab PO DAILY 07/30/18 05/09/24 History tablet) cholecalciferol (vitamin D3) 50 2,000 units PO DAILY 02/16/19 05/09/24 History mcg (2,000 unit) tablet cyanocobalamin (vitamin B-12) 100 100 mcg PO DAILY 02/16/19 05/09/24 History mcg tablet aspirin 81 mg tablet,delayed 81 mg PO BID #60 tabs 10/08/22 05/09/24 Rx release (Ubaldo Low Dose Aspirin) guaifenesin 1,200 mg tablet, 1,200 mg PO BID PRN congestion #60 10/10/22 05/09/24 Rx extended release 12 hr (Mucinex) tabs omeprazole 40 mg capsule,delayed 40 mg PO DAILY PRN Heartburn #90 06/05/23 05/09/24 Rx release caps lisinopril 20 mg tablet 20 mg PO QAM #90 tabs 03/23/24 05/09/24 Rx Patient History Medical History History of left breast cancer 12/16/2019 Mucinous carcinoma, 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 Hypokalemia Insomnia Calculus of ureterovesical junction (UVJ) 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 Acid reflux disease CHANTELLE (generalized anxiety disorder) Post herpetic neuralgia Vitamin D deficiency Surgical History H/O rotator cuff surgery Left History of bladder surgery "Lift" Hx of colonoscopy S/P lumpectomy, left breast With SLN biopsy on 02/16/2020 History of tubal ligation Hx of cataract surgery Bilateral;Had laser surgery as well Hx of BSO (bilateral salpingo-oophorectomy) History of hysterectomy History of herniorrhaphy History of cholecystectomy History of appendectomy History of facelift History of anesthesia reaction SLOW TO WAKE UP - REPORTS THAT THEY'VE HAD TO USE NARCAN TWICE BEFORE Family History Mother , 89yo Breast cancer Parkinsons disease Brother Colorectal cancer Father , in his 80s Heart disease Brother No problems noted. Sister , as infant No problems noted. Sister Alzheimer disease Sister No problems noted. Son MVA (motor vehicle accident) Son No problems noted. Son No problems noted. Son No problems noted. 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 How many Children do You have: 4 Other Information That Helps Us Care for You: No Feels Safe at Home: Yes Safety Concerns: Feels Safe At This Time Childhood Exposure to Second-Hand Smoke: No Diet: regular caffeine: Yes (4 cups/day) during the past year weight has: remained stable Dental Care, Regularly: Yes Physical Activity Frequency: Daily Seatbelt Use: always Sunscreen Use: Yes Assistive Devices: None Review of Systems Review of Systems: All systems reviewed & are unremarkable except as noted in HPI & below Physical Exam Physical Exam: Pleasant female in no distress Constitutional: WD/WN, vitals as above Neck: trachea midline, no thyromegaly Respiratory: normal respiratory effort, lungs clear to auscultation Cardiovascular: RRR, no murmur, no edema Gastrointestinal (Abdomen): Inspection/Auscultation: abdomen normal to inspection Percussion/Palpation: + abdomen tender and abdomen soft Results & Data Vital Signs (Past 12 Hours) Vital Signs Temp Pulse Pulse Resp BP BP Pulse Ox 05/09/24 08:21 36.8 C 97 H 20 146/82 H 96 05/09/24 07:12 97 H 26 H 05/09/24 07:06 103 H 18 05/09/24 07:00 168/94 H 05/09/24 06:54 98 H 24 96 05/09/24 06:47 170/95 H 05/09/24 06:47 170/95 H 05/09/24 06:47 37 C 95 H 24 170/95 H 95 05/09/24 06:30 104 H 22 96 05/09/24 06:30 172/71 H 05/09/24 06:30 172/71 H 05/09/24 06:15 104 H 25 H 97 05/09/24 06:06 101 H 22 98 05/09/24 06:01 94 H 05/09/24 05:54 102 H 29 H 96 05/09/24 05:45 102 H 20 96 05/09/24 05:21 89 20 95 05/09/24 05:12 87 22 96 05/09/24 05:00 86 14 96 05/09/24 05:00 173/96 H 05/09/24 05:00 173/96 H 05/09/24 05:00 36.8 C 87 22 173/96 H 94 05/09/24 04:51 88 20 96 05/09/24 04:27 90 17 97 05/09/24 04:19 90 24 176/106 H 97 05/09/24 04:17 176/106 H 05/09/24 04:15 88 23 97 05/09/24 04:12 87 23 98 05/09/24 04:00 88 24 98 05/09/24 03:57 96 H 20 82 L 05/09/24 03:42 83 22 97 05/09/24 03:30 83 23 97 05/09/24 03:03 84 28 H 96 05/09/24 02:54 84 27 H 96 05/09/24 02:48 88 25 H 96 05/09/24 02:44 187/106 H 05/09/24 02:44 187/106 H 05/09/24 02:44 96 05/09/24 02:43 87 22 187/106 H 96 05/09/24 02:40 85 L 05/09/24 02:21 95 H 25 H 05/09/24 02:12 97 H 22 05/09/24 02:09 95 H 19 05/09/24 02:08 95 H 05/09/24 01:51 36.5 C 90 18 188/94 H 90 O2 Del Method O2 Flow Rate 05/09/24 08:21 Nasal Cannula 4 05/09/24 07:12 05/09/24 07:06 05/09/24 07:00 05/09/24 06:54 05/09/24 06:47 05/09/24 06:47 05/09/24 06:47 Nasal Cannula 3 05/09/24 06:30 05/09/24 06:30 05/09/24 06:30 05/09/24 06:15 05/09/24 06:06 05/09/24 06:01 05/09/24 05:54 05/09/24 05:45 05/09/24 05:21 05/09/24 05:12 05/09/24 05:00 05/09/24 05:00 05/09/24 05:00 05/09/24 05:00 Nasal Cannula 3 05/09/24 04:51 05/09/24 04:27 05/09/24 04:19 Nasal Cannula 3 05/09/24 04:17 05/09/24 04:15 05/09/24 04:12 05/09/24 04:00 05/09/24 03:57 05/09/24 03:42 05/09/24 03:30 05/09/24 03:03 05/09/24 02:54 05/09/24 02:48 05/09/24 02:44 05/09/24 02:44 05/09/24 02:44 Nasal Cannula 2 05/09/24 02:43 Nasal Cannula 3 05/09/24 02:40 Room Air, Nasal Cannula 0 05/09/24 02:21 05/09/24 02:12 05/09/24 02:09 05/09/24 02:08 05/09/24 01:51 Room Air Laboratory Results 05/09/24 05/09/24 05/09/24 Range/Units 03:27 02:56 02:24 WBC (4.8-10.8) K/ul RBC (4.20-5.40) M/uL Hgb (12.0-16.0) g/dl Hct (37.0-47.0) % MCV (80.0-100.0) fL MCH (25.0-34.0) pg MCHC (32.0-36.0) g/dL RDW Std Deviation (36.4-46.3) fL RDW Coeff of Jeffery (11.5-14.5) % Plt Count (130-400) K/uL MPV (9.4-12.4) fL Immature Gran % (Auto) % Neut % (Auto) % Lymph % (Auto) % [place] % (Auto) % Eos % (Auto) % Baso % (Auto) % Neut # (Auto) (1.40-6.50) K/uL Lymph # (Auto) (1.20-3.40) K/uL [place] # (Auto) (0.11-0.59) K/uL Eos # (Auto) (0.00-0.50) K/uL Baso # (Auto) (0.00-0.20) K/uL Immature Gran # (Auto) (0.01-0.20) K/uL ESR 50 H (0-30) mm/hr PT 11.7 (9.0-12.0) Seconds INR 1.1 (0.9-1.1) Sodium (136-145) mmol/L Potassium (3.5-5.1) mmol/L Chloride (98-107) mmol/L Carbon Dioxide (21-32) mmol/L Anion Gap (3-11) BUN (6-23) mg/dl Creatinine (0.6-1.2) mg/dl Est Cr Clr Drug Dosing ml/min eGFR BUN/Creatinine Ratio (10-20) Glucose (70-99(Fasting)) mg/dl Calcium (8.6-10.3) mg/dl Total Bilirubin (0.2-1.0) mg/dl Direct Bilirubin (0-0.2) mg/dl AST (13-39) U/L ALT (7-52) U/L Alkaline Phosphatase (34-104) U/L Troponin I High Sens (0-14) pg/ml Total Protein (6.0-8.3) gm/dl Albumin (3.4-5.0) gm/dl Lipase (11-82) U/L Urine Color Dark Yellow Urine Appearance Clear (Clear) Urine pH 6.5 (4.5-7.5) Ur Specific [place] 1.029 (1.000-1.030) Urine Protein 1+ H (Negative) Urine Glucose (UA) Negative (Negative) Urine Ketones 2+ H (Negative) Urine Blood Negative (Negative) Urine Nitrite Positive A (Negative) Urine Bilirubin 2+ H (Negative) Urine Urobilinogen Positive H (Negative) Ur Leukocyte Esterase 1+ H (Negative) Urine WBC (Auto) 6-10 H (0-5) /hpf Urine RBC (Auto) 0-2 (0-2) /hpf U Hyaline Cast (Auto) 0-2 (0-2) /lpf U Epithel Cells (Auto) 6-10 H (0-2) /hpf Urine Bacteria (Auto) None Seen (None Seen) TRISTON Screen Pending Anti-Mitochondrial Ab Pending SARS-CoV-2 (PCR) NEGATIVE (Negative) Influenza Type A (PCR) Negative (Neg) Influenza Type B (PCR) Negative (Neg) RSV (RT-PCR) Negative (Neg) 05/09/24 Range/Units 01:59 WBC 10.89 H (4.8-10.8) K/ul RBC 5.22 (4.20-5.40) M/uL Hgb 14.6 (12.0-16.0) g/dl Hct 45.8 (37.0-47.0) % MCV 87.7 (80.0-100.0) fL MCH 28.0 (25.0-34.0) pg MCHC 31.9 L (32.0-36.0) g/dL RDW Std Deviation 40.8 (36.4-46.3) fL RDW Coeff of Jeffery 12.7 (11.5-14.5) % Plt Count 184 (130-400) K/uL MPV 9.7 (9.4-12.4) fL Immature Gran % (Auto) 0.4 % Neut % (Auto) 84.0 % Lymph % (Auto) 5.1 % [place] % (Auto) 8.6 % Eos % (Auto) 1.3 % Baso % (Auto) 0.6 % Neut # (Auto) 9.14 H (1.40-6.50) K/uL Lymph # (Auto) 0.56 L (1.20-3.40) K/uL [place] # (Auto) 0.94 H (0.11-0.59) K/uL Eos # (Auto) 0.14 (0.00-0.50) K/uL Baso # (Auto) 0.07 (0.00-0.20) K/uL Immature Gran # (Auto) 0.04 (0.01-0.20) K/uL ESR (0-30) mm/hr PT (9.0-12.0) Seconds INR (0.9-1.1) Sodium 138 (136-145) mmol/L Potassium 3.5 (3.5-5.1) mmol/L Chloride 102 (98-107) mmol/L Carbon Dioxide 32 (21-32) mmol/L Anion Gap 4 (3-11) BUN 16 (6-23) mg/dl Creatinine 0.73 (0.6-1.2) mg/dl Est Cr Clr Drug Dosing 60.8 ml/min eGFR 84.12 BUN/Creatinine Ratio 21.9 H (10-20) Glucose 130 H (70-99(Fasting)) mg/dl Calcium 9.1 (8.6-10.3) mg/dl Total Bilirubin 4.3 H (0.2-1.0) mg/dl Direct Bilirubin 2.8 H (0-0.2) mg/dl AST 275 H (13-39) U/L ALT 277 H (7-52) U/L Alkaline Phosphatase 227 H (34-104) U/L Troponin I High Sens 5.3 (0-14) pg/ml Total Protein 7.4 (6.0-8.3) gm/dl Albumin 3.9 (3.4-5.0) gm/dl Lipase 8 L (11-82) U/L Urine Color Urine Appearance (Clear) Urine pH (4.5-7.5) Ur Specific [place] (1.000-1.030) Urine Protein (Negative) Urine Glucose (UA) (Negative) Urine Ketones (Negative) Urine Blood (Negative) Urine Nitrite (Negative) Urine Bilirubin (Negative) Urine Urobilinogen (Negative) Ur Leukocyte Esterase (Negative) Urine WBC (Auto) (0-5) /hpf Urine RBC (Auto) (0-2) /hpf U Hyaline Cast (Auto) (0-2) /lpf U Epithel Cells (Auto) (0-2) /hpf Urine Bacteria (Auto) (None Seen) TRISTON Screen Anti-Mitochondrial Ab SARS-CoV-2 (PCR) (Negative) Influenza Type A (PCR) (Neg) Influenza Type B (PCR) (Neg) RSV (RT-PCR) (Neg) Diagnostic Findings Abdomen/Pelvis CT 05/09/24 01:59 EXAM: CT abd pelvis wo con CLINICAL HISTORY: Flank pain. TECHNIQUE: Non-contrast CT of the abdomen and pelvis was performed, with the following protocol: axial images, and reconstructed coronal and sagittal images. No intravenous contrast was administered. One of the following dose reduction techniques was utilized for this exam: Automated exposure control, adjustment of the mA and/or kV according to patient size, and use of iterative reconstruction. COMPARISON: Comparison is made with CT abdomen pelvis IV con only 01/19/2020. FINDINGS: Abdomen: Liver: Normal in size, shape, and density. Multiple cystic lesions largest in segment 6 measuring 20 x 13 mm with retraction of the liver capsule ( much smaller than previous study likely after the intervention, please correlate clinically). Other smaller cysts are stable. Interval prominent intrahepatic biliary ducts mainly in left side. Gallbladder is not seen. Pancreas: Mild peripancreatic head fat stranding mainly in the groove likely representing inflammatory changes. relatively new finding. Pancreatic head, body, and tail are visualized and appear normal in size and density. No pancreatic masses or calcifications were noted. Spleen: Normal in size, shape, and density. No splenic lesions or masses were identified. Kidneys and Adrenal Glands: Both kidneys are normal in size, shape, and position. Cortical thickness is within normal limits. No renal calculi or hydronephrosis. Small left cortical cyst. stable Adrenal glands are unremarkable. Appendix: The appendix is normal in size without chaim appendiceal fat stranding and without an appendicolith. No evidence of appendiceal abscess or perforation. Pelvis: Urinary Bladder: Normal in contour and wall thickness. No intraluminal lesions. Uterus and Ovaries: Not well visualized Vagina: Normal in contour and wall thickness. Cervix: No evidence of mass or abnormal thickening. Peritoneal and Retroperitoneal Structures: No free fluid or abnormal fluid collections were identified within the abdomen or pelvis. No lymphadenopathy was noted. Bowel: The visualized bowel loops are normal in caliber and appearance. No evidence of bowel obstruction or wall thickening. Non complicaited colonic diverticolosis. stable Large hiatus hernia. mild interval enlargement. Bones and Soft Tissues: Pelvic bones and soft tissues are unremarkable. No fractures or abnormal masses were identified. IMPRESSION: 1. Multiple cystic lesions largest in segment 6 measuring 20 x 13 mm with retraction of the liver capsule ( much smaller than previous study likely after intervention, please correlate clinically) Other smaller cysts are stable. 2. Interval prominent intrahepatic biliary ducts mainly in left side with prominent CBD, may be age-related. please correlate clinically and with Lab findings. 3. Mild peripancreatic head fat stranding mainly in the groove, could be non-specific or early inflammatory changes. relatively new finding. Follow-up and clinical correlation is advised. 4. Non complicaited colonic diverticolosis. stable 5. Large hiatus hernia. mild interval enlargement. Electronically signed by Sahara Woods 05-09-2024 04:16 AM Chest X-Ray 05/09/24 02:46 EXAM: XR chest 1V portable CLINICAL HISTORY: Sob TECHNIQUE: An X-ray image of the chest is obtained in AP projection. MARKED ROTATION. COMPARISON: Comparison is made with the previous chest x-ray dated 10/04/2022. FINDINGS: Pulmonary Parenchyma: Subtle peribronchial thickening and few fine nodular infiltrates are seen in bilateral mid and the low zones predominantly in the low zones. There is no evidence of consolidation, or collapse. The left CP angle appears hazy, it could be projectional or due to persistent small pleural effusion/pleural thickening. Heart and Mediastinum: Radiographically and as per exposure heart size and shape appear normal. No mediastinal widening or masses. No hilar or mediastinal lymphadenopathy. Bony Thorax: The bony thorax appears intact without fractures or deformities. Soft Tissues: Soft tissues overlying the chest wall are unremarkable. IMPRESSION: 1. There is a demonstration of subtle peribronchial thickening and few fine nodular infiltrates are seen in bilateral mid and the low zones predominantly in the low zones. The possibility of infective/inflammatory etiology cannot be entirely ruled out. 2. The left CP angle appears hazy, it could be projectional or due to persistent small pleural effusion/pleural thickening. 3. No significant interval change is noted as compared to the previous chest x-ray dated 10/04/2022. 4. Clinical correlation is advised. Electronically signed by Sahara Woods 05-09-2024 03:59 AM Chest CTA 05/09/24 03:19 EXAM: CT angio chest PE protocol CLINICAL HISTORY: ro PE. TECHNIQUE: CT angiography of the chest was performed with and without intravenous contrast with the following protocol: axial images with, reconstructed coronal and sagittal images. Non-contrast images were initially acquired, followed by contrast-enhanced images in arterial and venous phases. Intravenous contrast 85 ml opti 320 was administered using automated injection techniques. Bolus tracking was employed to optimize arterial phase imaging. One of these 3D techniques was utilized: Maximum Intensity Pixel (MIP), 3D Reconstructed Images, Volume Rendered Images, Surface Shaded Rendering. One of the following dose reduction techniques was utilized for this exam: Automated exposure control, adjustment of the mA and/or kV according to patient size, and use of iterative reconstruction. COMPARISON: 10/04/2022. FINDINGS: Aorta and Great Vessels: Ascending Aorta: Normal in caliber, no aneurysm, dissection, or significant atherosclerosis. Aortic Arch: Normal in caliber, no aneurysm, dissection, or significant atherosclerosis. Descending Aorta: Normal in caliber, no aneurysm, dissection, or significant atherosclerosis. Pulmonary Arteries: The main pulmonary artery and its branches are patent. No evidence of pulmonary embolism or significant stenosis. Heart: Cardiac Chambers: Normal in size. No evidence of cardiomegaly. Pericardium: No pericardial effusion or thickening. Lungs and Pleura: Multiple bilateral basal thick atelectatic plates. Lungs are clear without evidence of consolidation, collapse, or focal lesions. No pleural effusion or pleural thickening. Mediastinum: No mediastinal mass or abnormal lymphadenopathy. Normal appearance of the trachea and central bronchi. Hilar Structures: Hilar structures are normal without enlargement. Chest Wall: No mass lesions or abnormalities in the chest wall. Vascular Structures: Superior Vena Cava: Patent without evidence of stenosis or thrombus. Bones and Soft Tissues: No fractures, lytic, or blastic lesions of the visualized bony structures. Soft tissues are unremarkable. A hiatus hernia is noted. Upper abdominal cuts show multiple hepatic cysts. IMPRESSION: 1. No evidence of pulmonary embolism. 2. Multiple bilateral basal thick atelectatic plates. Electronically signed by Sahara Woods 05-09-2024 04:33 AM Cholangiopancreatography MRI 05/09/24 06:18 MR MRCP HISTORY: 78 years-old Female Transaminitis, prominent intrahepatic biliary duct abnormal LFTs with acute nausea and vomiting COMPARISON: CT abdomen and pelvis of same day also 01/19/2020 TECHNIQUE: MRCP was obtained according to institutional protocol without the use of IV contrast. FINDINGS: Moderate sized hiatal hernia. No bowel obstruction or bowel wall thickening. Colonic diverticulosis. No ascites or hydronephrosis. Renal cysts measure up to 1.6 cm within the upper pole left kidney. No abdominal aortic aneurysm or lymphadenopathy. Hepatic cysts have decreased in size from the 2019 comparison. Pancreatic atrophy. There are a few subcentimeter cystic foci in the pancreas measuring up to 8 mm suggestive of probable sidebranch IPMN's. Intrahepatic and extrahepatic biliary ductal dilation with filling defects within the mid to distal common bile duct measuring up to 8 mm. The gallbladder is reportedly surgically absent. Motion degraded exam. IMPRESSION: 1. Motion degraded exam. 2. Cholecystectomy with choledocholithiasis resulting in intrahepatic and extrahepatic biliary ductal dilation. 3. 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 4. Hepatic cysts have decreased in size from CT comparison from 2020. ACT 112: Negative or not required by law. The above report was generated using voice recognition software. It may contain grammatical, syntax or spelling errors. Electronically signed by: Quoc Gomes M.D. 05/09/2024 10:08 AM
[2024-05-09] MEDS: ONDANSETRON INJ 2 MG/ML 2 ML VIAL IV PRN (12:28)
[2024-05-09] MEDS: PROCHLORPERAZINE 10 MG in SYRINGE 8 ML IV PRN (14:13)
[2024-05-09] MEDS: metroNIDAZOLE 500 MG/100 ML BAG IV SCH (15:52)
[2024-05-09] MEDS: MoRPHine SULFATE 4 MG/ML 1 ML CARP\\VIAL IV PRN (16:04)
[2024-05-09] MEDS: FAMOTIDINE 20MG IV PUSH 20 MG/5 ML SYR IV SCH (21:37)
[2024-05-10] MEDS: cefTRIAXone SODIUM 2,000 MG/50 ML BAG IV SCH (03:57)
[2024-05-10 08:11] LABS: Basophils # (auto) 0.03 K/uL (0.00-0.20); Basophils % (auto) 0.2 %; Eosinophils # (auto) 0.03 K/uL (0.00-0.50); Eosinophils % (auto) 0.2 %; Hematocrit (blood only) 36.4 % (37.0-47.0); Hemoglobin 12.1 g/dl (12.0-16.0); Immature Granulocytes # (auto) 0.08 K/uL (0.01-0.20); Immature Granulocytes % (auto) 0.6 %; Lymphocytes # (auto) 0.62 K/uL (1.20-3.40); Lymphocytes % (auto) 4.6 %; Mean Corpuscular Hgb Conc 33.2 g/dL (32.0-36.0); Mean Corpuscular Volume 87.3 fL (80.0-100.0); Mean Platelet Volume 9.9 fL (9.4-12.4); Monocytes % (auto) 8.9 %; Neutrophils # (auto) 11.59 K/uL (1.40-6.50); Neutrophils % (auto) 85.5 %; Platelet Count 117 K/uL (130-400); RDW Coefficient of Variation 13.2 % (11.5-14.5); RDW Standard Deviation 42.1 fL (36.4-46.3); Red Blood Count 4.17 M/uL (4.20-5.40); White Blood Count 13.55 K/ul (4.8-10.8)
[2024-05-10 08:32] LABS: Albumin Level 2.8 gm/dl (3.4-5.0); BUN Creatinine Ratio 22.5 (10-20); Bilirubin,Total 5.3 mg/dl (0.2-1.0); Calcium 7.6 mg/dl (8.6-10.3); Creatinine Clr Calc Pharmacy 63.6 ml/min; Globulin 2.7 gm/dl (2.5-4.0); Magnesium 1.5 mg/dl (1.7-2.4); Potassium 3.2 mmol/L (3.5-5.1); Total Protein 5.5 gm/dl (6.0-8.3)
[2024-05-10] MEDS: SODIUM CHLORIDE 0.9% 1,000 ML IV SCH (09:54)
--- NOTE | 2024-05-10 10:33 | Gastroenterology Progress Note ---
Date of Service May 10, 2024 Assessment & Plan (1) Transaminitis: Plan: 78 year old female with past medical history of hypertension, CHANTELLE, breast cancer, s/p cholecystectomy status admitted through the ED w/ abd pain, nausea/vomiting (coffee ground emesis) w/ elevated transaminases and concern for CBD stone Maintain NPO status EGD/ERCP today - Risks/benefits and alternatives discussed Agree w/ ABX w/ biliary coverage Antiemetics PRN Analgesia PRN Trend LFTs Continue IV PPI Trend H&H Monitor GI output We appreciate assistance in the management of any serological abnormality and corrections to include: hemoglobin >7, INR <2, platelets >50,000, potassium levels >3.5 but <5.3, and sodium levels within 5 points of the reference range prior to endoscopic evaluation. Thank you for allowing us to participate in the care of this patient. Please call with any acute changes, questions or concerns. Please see addendum below with additional recommendation from my supervising physician. Admission and Anticipated Discharge Date Admission Date: May 09, 2024 Supervising Physician Co-Signing Physician Notes I saw and examined this patient with our nurse practitioner and agree with her assessment and plan. Clinical picture and imaging consistent with choledocholithiasis. Will proceed with ERCP. Subjective Pt was seen and evaluated, chart reviewed. Abd pain is improved. No nausea. No further emesis. She reports fevers/chills at home. WBC 13.55 TBili 5.3 AST 110 ALT 174 ALKP 173 MRCP 2024: Cholecystectomy with choledocholithiasis resulting in intrahepatic and extrahepatic biliary ductal dilation. 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 Hepatic cysts have decreased in size from CT comparison from 2019. Review of Systems Review of Systems: All other findings negative except as noted in HPI. Physical Exam Constitutional: WD/WN, vitals as above Gastrointestinal (Abdomen): normal bowel sounds, soft, nontender, no hepatosplenomegaly Skin: no rashes, warm and dry Results & Data Results & Data Vital Signs (Past 12 Hours) Vital Signs Temp Pulse Pulse Resp BP Pulse Ox O2 Del Method 05/10/24 08:17 72 05/10/24 08:17 Nasal Cannula, Ambu-Bag 05/10/24 07:53 97.5 F L 82 18 159/89 H 94 Nasal Cannula 05/10/24 05:00 97.5 F L 79 16 111/65 96 Nasal Cannula 05/09/24 22:53 98.1 F 99 H 18 119/67 93 Nasal Cannula O2 Flow Rate 05/10/24 08:17 05/10/24 08:17 3 05/10/24 07:53 3 05/10/24 05:00 3 05/09/24 22:53 3.0 Laboratory Results 05/10/24 05/10/24 05/09/24 Range/Units 07:51 04:42 20:27 WBC 13.55 H (4.8-10.8) K/ul RBC 4.17 L (4.20-5.40) M/uL Hgb 12.1 (12.0-16.0) g/dl Hct 36.4 L (37.0-47.0) % MCV 87.3 (80.0-100.0) fL MCH 29.0 (25.0-34.0) pg MCHC 33.2 (32.0-36.0) g/dL RDW Std Deviation 42.1 (36.4-46.3) fL RDW Coeff of Jeffery 13.2 (11.5-14.5) % Plt Count 117 L (130-400) K/uL MPV 9.9 (9.4-12.4) fL Immature Gran % (Auto) 0.6 % Neut % (Auto) 85.5 % Lymph % (Auto) 4.6 % [place] % (Auto) 8.9 % Eos % (Auto) 0.2 % Baso % (Auto) 0.2 % Neut # (Auto) 11.59 H (1.40-6.50) K/uL Lymph # (Auto) 0.62 L (1.20-3.40) K/uL [place] # (Auto) 1.20 H (0.11-0.59) K/uL Eos # (Auto) 0.03 (0.00-0.50) K/uL Baso # (Auto) 0.03 (0.00-0.20) K/uL Immature Gran # (Auto) 0.08 (0.01-0.20) K/uL Sodium 141 (136-145) mmol/L Potassium 3.2 L (3.5-5.1) mmol/L Chloride 109 H (98-107) mmol/L Carbon Dioxide 28 (21-32) mmol/L Anion Gap 4 (3-11) BUN 16 (6-23) mg/dl Creatinine 0.71 (0.6-1.2) mg/dl Est Cr Clr Drug Dosing 63.6 ml/min eGFR 86.98 BUN/Creatinine Ratio 22.5 H (10-20) Glucose 101 H (70-99(Fasting)) mg/dl POC Glucose 119 H 103 H (70-99) mg/dl Calcium 7.6 L (8.6-10.3) mg/dl Magnesium 1.5 L (1.7-2.4) mg/dl Total Bilirubin 5.3 H (0.2-1.0) mg/dl AST 110 H (13-39) U/L ALT 174 H (7-52) U/L Alkaline Phosphatase 173 H (34-104) U/L Total Protein 5.5 L D (6.0-8.3) gm/dl Albumin 2.8 L (3.4-5.0) gm/dl Globulin 2.7 (2.5-4.0) gm/dl Albumin/Globulin Ratio 1.0 (0.9-2) PG Care Time/CCT Total # of Minutes Spent Total Time Spent with Patient: Total time spent is greater than 50% in coordination of care (as documented) at patient's floor/unit and/or counseling patient: Coding Level of Care Code None Diagnoses Transaminitis R74.01
[2024-05-10] MEDS ORDERED: ONDANSETRON INJ 2 MG/ML 2 ML VIAL ONE (12:12)
[2024-05-10] MEDS ORDERED: PROPOFOL IV EMULSION 10 MG/ML 20 ML VIAL IV ONE ×2 (12:12→14:46)
[2024-05-10] MEDS ORDERED: SUCCINYLCHOLINE CHLORIDE 20 MG/ML 10 ML VIAL IV ONE (12:12)
[2024-05-10] MEDS ORDERED: DEXAMETHASONE SOD INJ 4 MG/ML VIAL ONE (12:12)
[2024-05-10] MEDS ORDERED: ROCURONIUM BROMIDE 10 MG/ML 5 ML VIAL IV ONE (12:12)
[2024-05-10] MEDS ORDERED: fentaNYL citrate PF 100 MCG/2 ML VIAL ONE (12:12)
[2024-05-10] MEDS ORDERED: LIDOCAINE 2% 2 ML VIAL/AMP(20MG/ML) INFIL ONE (12:21)
--- NOTE | 2024-05-10 12:29 | Hospitalist Progress Note ---
Date of Service May 10, 2024 Assessment & Plan (1) Choledocholithiasis: Plan: Appears to be the cause of acute nausea and vomiting present on admission. Nausea has now resolved. She had transient coffee-ground emesis and was treated with Protonix drip. Hemoglobin remains stable. GI consultation and recommendations appreciated. ERCP is pending (2) UGIB (upper gastrointestinal bleed): Plan: Suspected on admission. Appreciate GI consultation and recommendations. She is currently on a Protonix drip. Serial labs (3) Transaminitis: Plan: Mild on admission. Resolving. Serial labs (4) Hypoxia: Plan: Mild on admission. She vomited and may have aspirated. It appears that supplemental oxygen can be weaned off quickly (5) Nausea & vomiting: Plan: Present on admission. Now resolved Plan Anticipate eventual discharge to home when stable. Hopefully within the next day or 2 Admission and Anticipated Discharge Date Admission Date: May 09, 2024 Subjective Alert and oriented. No distress. MRCP is consistent with choledocholithiasis. GI consultation and recommendations appreciated. ERCP procedure is pending. Continue intravenous Rocephin and Flagyl for now, day 2. She is currently n.p.o. on IV fluids. Review of Systems 2 Review of Systems: Constitutionalno fever or chills ENTno blurred vision, no double vision, no epistaxis, no sore throat Respiratoryno cough, no wheezing, no shortness of breath Cardiacno palpitations, no chest pain, no syncope Albina nausea, vomiting, diarrhea, melena, hematochezia GUno urinary retention, no urinary incontinence, no dysuria, no hematuria Musculoskeletalno joint pain, no muscle tenderness Skinno bruising, no rashes, no pruritus Neurono isolated weakness, no paresthesia, no weakness Psychno depression, no anxiety Physical Exam 2 Physical Exam: General-alert and oriented x3, no fever, no chills HEENT-head atraumatic and normocephalic, pupils equal and reactive to light, extraocular muscles intact Neck-no lymphadenopathy or thyromegaly, trachea midline Chest-clear to auscultation. No rales, wheezing or rhonchi Cardiac-regular rate and rhythm, normal S1 and S2 Abdomen-normal bowel sounds, no hepatosplenomegaly Extremities-no cyanosis, clubbing, or edema Neuro-cranial nerves II through XII intact, motor and sensory function within normal limits, strength symmetrical, no focal deficits Psych-normal affect, normal mood Results & Data Results & Data Vital Signs (Past 12 Hours) Vital Signs Temp Pulse Pulse Resp BP Pulse Ox O2 Del Method 05/10/24 11:31 36.7 C 86 18 127/72 97 Nasal Cannula 05/10/24 08:17 72 05/10/24 08:17 Nasal Cannula 05/10/24 07:53 36.4 C L 82 18 159/89 H 94 Nasal Cannula 05/10/24 05:00 36.4 C L 79 16 111/65 96 Nasal Cannula O2 Flow Rate 05/10/24 11:31 3 05/10/24 08:17 05/10/24 08:17 3 05/10/24 07:53 3 05/10/24 05:00 3 Laboratory Results 05/10/24 07:51 05/10/24 07:51 PG Care Time/CCT Total # of Minutes Spent Total Time Spent with Patient: Total time spent is greater than 50% in coordination of care (as documented) at patient's floor/unit and/or counseling patient: Coding Level of Care Code 65615 SUB INP/OBS CARE 3/50MIN Diagnoses Choledocholithiasis K80.50 UGIB (upper gastrointestinal bleed) K92.2 Transaminitis R74.01 Hypoxia R09.02 Nausea & vomiting R11.2
[2024-05-10] MEDS: LACTATED RINGER'S 1,000 ML IV SCH (12:56)
--- NOTE | 2024-05-10 13:00 | Anesthesiology Consultation ---
Date of Service May 10, 2024 Assessment & Plan Chart Review Chart Review: Acceptable Risk for Surgery and Patient NOT seen in Pre Admission Testing Consults Requested none ASA ASA3 Proposed Anesthesia Anesthesia Type: General Risk / Benefits Reviewed With: PT / POA / Parent / Guardian, Accepts Plan and Informed Consent Obtained History Surgery Operation Date: 05/10/24 09:10 Proposed Procedures p Endoscopic Retrograde Cholangiopancreatogram - Brett Mccormack MD s Esophagogastroduodenoscopy - Brett Mccormack MD Height/Weight Height: 5 ft Weight: 85.865 kg Allergies Allergy/AdvReac Type Severity Reaction Status Date / Time No Known Drug Allergies Allergy Unknown Verified 05/10/24 12:41 Medications Home Medications Medication Instructions Recorded Confirmed Last Taken multivitamin (Daily Multi-Vitamin 1 tab PO DAILY 07/30/18 05/09/24 10/04/22 tablet) cholecalciferol (vitamin D3) 50 2,000 units PO DAILY 02/16/19 05/09/24 10/04/22 mcg (2,000 unit) tablet cyanocobalamin (vitamin B-12) 100 100 mcg PO DAILY 02/16/19 05/09/24 10/04/22 mcg tablet aspirin 81 mg tablet,delayed 81 mg PO BID #60 tabs 10/08/22 05/09/24 10/04/22 release (Ubaldo Low Dose Aspirin) guaifenesin 1,200 mg tablet, 1,200 mg PO BID PRN congestion #60 10/10/22 05/09/24 Unknown extended release 12 hr (Mucinex) tabs omeprazole 40 mg capsule,delayed 40 mg PO DAILY PRN Heartburn #90 06/05/23 05/09/24 Unknown release caps lisinopril 20 mg tablet 20 mg PO QAM #90 tabs 03/23/24 05/09/24 Unknown Active Medications Generic Name Dose Route Start Last Admin Trade Name Freq PRN Reason Stop Dose Admin Pantoprazole Sodium 40 mg/ 100 mls @ 20 mls/hr 05/09/24 05:00 05/10/24 07:40 Dextrose IV 06/08/24 04:59 8 mg/hr Q5H SOLE 20 mls/hr Administration 8 MG/HR Prochlorperazine 10 mg/ 10 mls @ 5 mls/min 05/09/24 06:15 05/09/24 14:13 Syringe IV 06/08/24 06:14 5 mls/min Q6H PRN Administration Nausea And Vomiting Metronidazole 500 mg in 100 mls @ 100 mls/hr 05/09/24 15:00 05/10/24 07:42 Flagyl IV 05/19/24 06:29 Infused Q8H SOLE Infusion Protocol Ceftriaxone Sodium 2,000 mg in 50 mls @ 100 mls/hr 05/10/24 04:00 05/10/24 04:27 Rocephin IV 05/20/24 03:59 Infused Q24H SOLE Infusion Sodium Chloride 1,000 mls @ 80 mls/hr 05/10/24 09:00 05/10/24 09:54 Nss IV 05/11/24 08:59 80 mls/hr .[id number] SOLE Administration Lactated Ringer's 1,000 mls @ 80 mls/hr 05/10/24 13:00 05/10/24 12:56 Lr IV 05/11/24 12:59 80 mls/hr .[id number] SOLE Administration Morphine Sulfate 4 mg 05/09/24 06:15 05/09/24 16:04 Morphine Sulfate 4 Mg/Ml 1 Ml Carp\\Vial IV 05/23/24 06:14 4 mg Q6H PRN Administration Severe Pain (Scale 7, 8, 9,10) Ondansetron HCl 4 mg 05/09/24 06:15 05/09/24 12:28 Ondansetron Inj 2 Mg/Ml 2 Ml Vial IV 06/08/24 06:14 4 mg Q6H PRN Administration Nausea And Vomiting NPO Date Last Intake of Fluids: 05/08/24 Date Last Intake of Solids: 05/08/24 Past Medical History Medical History History of left breast cancer 12/16/2019 Mucinous carcinoma, 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 Sister , as No problems noted. Sister Alzheimer disease Sister No problems noted. Son MVA (motor vehicle accident) Son No problems noted. Son No problems noted. Son No problems noted. Family/Other Breast cancer Cousin on father's side of family Denies family history of Ovarian cancer Prostate cancer Past Surgical History Surgical History H/O rotator cuff surgery Left History of bladder surgery "Lift" Hx of colonoscopy S/P lumpectomy, left breast With SLN biopsy on 02/16/2020 History of tubal ligation Hx of cataract surgery Bilateral;Had laser surgery as well Hx of BSO (bilateral salpingo-oophorectomy) History of hysterectomy History of herniorrhaphy History of cholecystectomy History of appendectomy History of facelift History of anesthesia reaction SLOW TO WAKE UP - REPORTS THAT THEY'VE HAD TO USE NARCAN TWICE BEFORE Past Anesthesia History No Hx of Anesthesia Complications and No Family Hx of Anesthesia Complications History of PONV No Hx of PONV and No Hx of Motion Sickness Social History Smoking Status: Never smoker Do You Dip or Chew Tobacco: No Hx Alcohol Use: No Alcohol type: wine alcohol intake frequency: holidays/special occasions only Hx Substance Use: No substance use type: does not use Review of Systems ROS Unobtainable: All systems reviewed & are unremarkable except as noted in HPI & below Physical Exam Vital Signs Last Vital Signs Temp 36.8 C 05/10/24 12:41 Pulse 88 05/10/24 12:41 Resp 22 05/10/24 12:41 BP 177/85 H 05/10/24 12:41 Pulse Ox 95 05/10/24 12:41 O2 Del Method Nasal Cannula 05/10/24 12:41 O2 Flow Rate 2 05/10/24 12:41 ENMT Mouth: no TMJ abnormality Thyromental Distance: > or= 3.5 Finger Breadths Mallampati Class: II Neck normal visual inspection and trachea midline; neck extension not limited Respiratory normal respiratory effort Auscultation: lungs clear to auscultation bilaterally Cardiovascular Rate/Rhythm: regular rate and regular rhythm Heart Sounds: no murmur Musculoskeletal Spine: normal cervical ROM Extremities: full ROM of extremities Neurologic moves all extremities Psychiatric Orientation: alert and oriented x 3 Testing Laboratory Results 05/10/24 07:51 05/10/24 07:51 PT 11.7 Seconds (9.0-12.0) 05/09/24 02:24 INR 1.1 (0.9-1.1) 05/09/24 02:24 Urine Color Dark Yellow 05/09/24 03:27 Urine Appearance Clear (Clear) 05/09/24 03:27 Urine pH 6.5 (4.5-7.5) 05/09/24 03:27 Ur Specific [place] 1.029 (1.000-1.030) 05/09/24 03:27 Urine Protein 1+ (Negative) H 05/09/24 03:27 Urine Glucose (UA) Negative (Negative) 05/09/24 03:27 Urine Ketones 2+ (Negative) H 05/09/24 03:27 Urine Nitrite Positive (Negative) A 05/09/24 03:27 Ur Leukocyte Esterase 1+ (Negative) H 05/09/24 03:27 Urine WBC (Auto) 6-10 /hpf (0-5) H 05/09/24 03:27 Urine RBC (Auto) 0-2 /hpf (0-2) 05/09/24 03:27 U Hyaline Cast (Auto) 0-2 /lpf (0-2) 05/09/24 03:27 U Epithel Cells (Auto) 6-10 /hpf (0-2) H 05/09/24 03:27 Urine Bacteria (Auto) None Seen (None Seen) 05/09/24 03:27 05/10/24 04:42 POC Glucose 119 H Electrocardiogram Date: 05/09/24 Findings: + NSR @ Echocardiogram Date: 02/02/19 EF: 70 LV Function: normal Stress Test Date: 02/02/19 Type: nuclear Findings: + WNL
[2024-05-10] MEDS ORDERED: fentaNYL citrate PF 100 MCG/2 ML VIAL IV PRN (13:07)
[2024-05-10] MEDS ORDERED: ePHEDrine sulfate 50 MG/ML AMP IV PRN (13:07)
[2024-05-10] MEDS ORDERED: ATROPINE SULFATE 0.1 MG/ML 10ML SYR IV PRN (13:07)
[2024-05-10] MEDS ORDERED: GLUCAGON FOR INJ 1 MG VIAL ONE (14:41)
--- NOTE | 2024-05-10 15:17 | GI REPORT ---
[facility] Patient: MICHAEL SANTANA : 1945 Sex at : Female Age: 78 Years Procedure: Upper GI endoscopy Date: 05/10/2024 Attending Physician: Brett Mccormack MD Referring MD: No Pcp Indications: - Suspected upper gastrointestinal bleeding Medications: - Monitored Anesthesia Care Complications: Procedure: - The egd scope was introduced through the mouth and advanced to the second part of the duodenum. - The upper GI endoscopy was accomplished without difficulty. - The patient tolerated the procedure well. Findings: - [place]-colored mucosa appeared to be above GE junction was present. Possible Briscoe's Esophagus. - Multiple erosions were found in the gastric antrum and in the gastric body. - The examined duodenum was normal. Impression: - [place]-colored mucosa. - Erosive gastropathy. - Normal examined duodenum. - No specimens collected. Recommendation: - Consider repeat endoscopy as an outpatient to confirm presence of Briscoe's esophagus Procedure Code(s): - 58337, Esophagogastroduodenoscopy, flexible, transoral; diagnostic, including collection of specimen(s) by brushing or washing, when performed (separate procedure) Diagnosis Code(s): - K31.89, Other diseases of stomach and duodenum - K22.89, Other specified disease of esophagus CPT(R) - 2023 copyright [employer]. All Rights Reserved. The CPT codes, CCI edits and ICD codes generated are intended as suggestions and were generated based on input data. These codes are preliminary and upon furnace attendant review may be revised to meet current compliance and payer requirements. The provider is responsible for the final determination of appropriate codes, and modifiers. Brett Mccormack MD This document has been electronically signed. Note Initiated:05/10/2024 Note Completed:05/10/2024 3:16 PM [email or web address]\Results\[email or web address]\[id number]
--- NOTE | 2024-05-10 15:24 | Fluoroscopy Report ---
FL ERCP biliary ductal CLINICAL HISTORY: for ercp COMPARISON STUDY: MRCP May 09, 2024. FLUOROSCOPY TIME: 6 minutes and 56 seconds. Ka,r: 123.50 mGy FLUOROSCOPIC IMAGES: 3 FINDINGS: Fluoroscopy was provided during ERCP. The common bile duct was cannulated. Biliary ductal d ilatation is noted. Intrahepatic bile ducts are partially opacified. Filling defects within the dista l common bile duct suggest calculi. IMPRESSION: Fluoroscopy provided during ERCP. ACT 112: Negative or not required by law. Electronically signed by: Albino Hickman M.D. 05/10/2024 3:22 PM
--- NOTE | 2024-05-10 15:28 | GI REPORT ---
[facility] Patient: MICHAEL SANTANA : 1945 Sex at : Female Age: 78 Years Procedure: ERCP Date: 05/10/2024 Attending Physician: Brett Mccormack MD Referring MD: No Pcp Indications: - Bile duct stone(s) Medications: - General Anesthesia - Indomethacin 100 mg RI - See the Anesthesia note for documentation of the administered medications Complications: - No immediate complications., No immediate complications. Estimated blood loss: Minimal. Estimated Blood Loss: - Estimated blood loss: None. Procedure: - Prior to the procedure, a History and Physical was performed, and patient medications, allergies and sensitivities were reviewed. The patient's tolerance of previous anesthesia was reviewed. - Patient identification and proposed procedure were verified prior to the procedure by the physician. The procedure was verified in the pre-procedure area. - The risks and benefits of the procedure and the sedation options and risks were discussed with the patient. All questions were answered and informed consent was obtained. - Prophylactic Antibiotics: The patient requires prophylactic antibiotics as clinically indicated based on published guidelines for the planned ERCP. The patient received antibiotic therapy before the procedure. - The ercp scope was introduced through the mouth and advanced to the duodenum and used to inject contrast into the bile duct. - The ERCP was accomplished without difficulty. - The patient tolerated the procedure well. Findings: - The bile duct was deeply cannulated [Device]. Contrast was injected. I personally interpreted the bile duct images. Image quality was adequate. The lower third of the main bile duct contained multiple stones, the largest of which was 13 mm in diameter. The middle third of the main bile duct was moderately dilated secondary to stones. - A biliary sphincterotomy was made with a sphincterotome. There was no post-sphincterotomy bleeding. - The biliary tree was swept with a 12 mm balloon. Sludge and pus was swept from the duct. A few stones were removed. No stones remained. - Pancreatic duct cannulation was not attempted. Only three images were saved dude to technical reasons. Impression: - The middle third of the main bile duct was moderately dilated, with a stone causing an obstruction. - Choledocholithiasis was found. Complete removal was accomplished by biliary sphincterotomy and balloon extraction. - A biliary sphincterotomy was performed. Recommendation: Procedure Code(s): - 51992, Endoscopic retrograde cholangiopancreatography (ERCP); with removal of calculi/debris from biliary/pancreatic duct(s) - 64952, Endoscopic retrograde cholangiopancreatography (ERCP); with sphincterotomy/papillotomy - 13176, Endoscopic catheterization of the biliary ductal system, radiological supervision and interpretation Diagnosis Code(s): - K80.51, Calculus of bile duct without cholangitis or cholecystitis with obstruction CPT(R) - 2023 copyright [employer]. All Rights Reserved. The CPT codes, CCI edits and ICD codes generated are intended as suggestions and were generated based on input data. These codes are preliminary and upon paper hanger review may be revised to meet current compliance and payer requirements. The provider is responsible for the final determination of appropriate codes, and modifiers. Brett Mccormack MD This document has been electronically signed. Note Initiated:05/10/2024 Note Completed:05/10/2024 3:27 PM \\[email or web address]\[email or web address]\Provation\Results\[email or web address]\[id number]
[2024-05-10] MEDS: ONDANSETRON INJ 2 MG/ML 2 ML VIAL IV PRN (15:39)
--- NOTE | 2024-05-10 15:46 | Anesthesiology Progress Note ---
Date of Service May 10, 2024 Anesthesia Post Procedure Vital Signs Vital Signs: Temp Pulse Pulse Resp BP BP Pulse Ox 05/10/24 15:40 88 22 139/77 98 05/10/24 15:30 93 H 18 140/70 96 05/10/24 15:20 89 20 140/68 98 05/10/24 15:12 36 C L 100 H 22 141/78 H 97 05/10/24 12:41 36.8 C 88 22 177/85 H 177/85 H 95 05/10/24 11:31 36.7 C 86 18 127/72 97 05/10/24 08:17 72 05/10/24 08:17 05/10/24 07:53 36.4 C L 82 18 159/89 H 94 05/10/24 05:00 36.4 C L 79 16 111/65 96 05/09/24 22:53 36.7 C 99 H 18 119/67 93 05/09/24 21:46 104 H 05/09/24 19:52 05/09/24 19:38 37.0 C 109 H 16 111/66 91 O2 Del Method O2 Flow Rate 05/10/24 15:40 Nasal Cannula 2 05/10/24 15:30 Nasal Cannula 3 05/10/24 15:20 Oxymask 6 05/10/24 15:12 Oxymask 6 05/10/24 12:41 Nasal Cannula 2 05/10/24 11:31 Nasal Cannula 3 05/10/24 08:17 05/10/24 08:17 Nasal Cannula 3 05/10/24 07:53 Nasal Cannula 3 05/10/24 05:00 Nasal Cannula 3 05/09/24 22:53 Nasal Cannula 3.0 05/09/24 21:46 05/09/24 19:52 Nasal Cannula 3 05/09/24 19:38 Nasal Cannula 3.0 Pain Intensity Abdomen: Pain Intensity: 8 Transfer of Care Handoff Completed per policy Notes Mental Status: alert / awake / arousable and participated in evaluation Patient Amnestic to Procedure: Yes Nausea / Vomiting: adequately controlled Pain: adequately controlled Airway Patency, RR, SpO2: stable & adequate BP & HR: stable & adequate Hydration State: stable & adequate Anesthetic Complications: no major complications apparent and Pt Satisfied with anesthetic care
[2024-05-10] MEDS: INDOMETHACIN 50 MG SUPP PR ONE (15:51)
--- NOTE | 2024-05-10 16:00 | Electrocardiogram Report ---
Test Reason : Blood Pressure : */* mmHG Vent. Rate : 90 BPM Atrial Rate : 90 BPM P-R Int : 148 ms QRS Dur : 116 ms QT Int : 382 ms P-R-T Axes : 38 -12 70 degrees QTcB Int : 467 ms Normal sinus rhythm Incomplete left bundle block Abnormal ECG When compared with ECG of 04-Oct-2022 20:21, Incomplete left bundle block is now Present Confirmed by Finesse Son ([id number]) on 05/10/2024 3:59:30 PM Referred By: NO PCP Confirmed By: Finesse Son
[2024-05-10] MEDS: GLUCAGON FOR INJ 1 MG VIAL ONE (16:21)
[2024-05-10] MEDS: MAGNESIUM SULFATE / D5W 1 GM/100 ML BAG IV SCH (17:04)
[2024-05-10] MEDS: POTASSIUM CHLORIDE / WTR 10 MEQ/100 ML PLCT IV SCH (17:05)
[2024-05-10 19:55] VITALS: RESP 18
[2024-05-10] MEDS: HEPARIN SOD 5,000 UNIT/0.5 ML VIAL SQ SCH (20:18)
[2024-05-10 21:11] LABS: Adenovirus F 40/41 PCR Not Detected (NotDetected); Astrovirus PCR Not Detected (NotDetected); Campylobacter PCR Not Detected (NotDetected); Cryptosporidium PCR Not Detected (NotDetected); Cyclospora cayetanensis PCR Not Detected (NotDetected); Entamoeba histolytica PCR Not Detected (NotDetected); Enteroaggregative E.coli(EAEC) Not Detected (NotDetected); Enteropathogenic E.coli (EPEC) Not Detected (NotDetected); Enterotoxigenic E.coli (ETEC) Not Detected (NotDetected); Giardia lamblia PCR Not Detected (NotDetected); Norovirus GI/GII PCR Not Detected (NotDetected); Plesiomonas shigelloides PCR Not Detected (NotDetected); Rotavirus A PCR Not Detected (NotDetected); Salmonella PCR Not Detected (NotDetected); Sapovirus PCR Not Detected (NotDetected); Shiga-like Toxin E.coli (STEC) Not Detected (NotDetected); Shigella/Enteroinvasive E.coli Not Detected (NotDetected); Vibrio cholerae PCR Not Detected (NotDetected); Vibrio species PCR Not Detected (NotDetected); Yersinia enterocolitica PCR Not Detected (NotDetected)
[2024-05-10 22:43] VITALS: TEMP 97.9
[2024-05-11 07:59] LABS: Basophils # (auto) 0.01 K/uL (0.00-0.20); Basophils % (auto) 0.1 %; Hemoglobin 12.8 g/dl (12.0-16.0); Immature Granulocytes # (auto) 0.06 K/uL (0.01-0.20); Immature Granulocytes % (auto) 0.6 %; Lymphocytes # (auto) 0.54 K/uL (1.20-3.40); Lymphocytes % (auto) 5.2 %; Mean Corpuscular Hemoglobin 28.3 pg (25.0-34.0); Mean Corpuscular Hgb Conc 32.8 g/dL (32.0-36.0); Mean Corpuscular Volume 86.1 fL (80.0-100.0); Mean Platelet Volume 10.3 fL (9.4-12.4); Monocytes # (auto) 0.77 K/uL (0.11-0.59); Monocytes % (auto) 7.4 %; Neutrophils # (auto) 9.07 K/uL (1.40-6.50); Neutrophils % (auto) 86.7 %; Platelet Count 122 K/uL (130-400); RDW Coefficient of Variation 12.9 % (11.5-14.5); RDW Standard Deviation 40.5 fL (36.4-46.3); Red Blood Count 4.53 M/uL (4.20-5.40); White Blood Count 10.45 K/ul (4.8-10.8)
[2024-05-11 08:14] LABS: Albumin Globulin Ratio 1.1 (0.9-2); Albumin Level 3.1 gm/dl (3.4-5.0); BUN Creatinine Ratio 28.8 (10-20); Bilirubin,Total 2.2 mg/dl (0.2-1.0); Calcium 8.5 mg/dl (8.6-10.3); Creatinine Clr Calc Pharmacy 68.4 ml/min; Globulin 2.8 gm/dl (2.5-4.0); Magnesium 2.2 mg/dl (1.7-2.4); Potassium 3.8 mmol/L (3.5-5.1); Total Protein 5.9 gm/dl (6.0-8.3)
--- NOTE | 2024-05-11 09:35 | Gastroenterology Progress Note ---
Date of Service May 11, 2024 Assessment & Plan (1) Choledocholithiasis: Plan: 78 year old female with past medical history of hypertension, CHANTELLE, breast cancer, s/p cholecystectomy status admitted through the ED w/ abd pain, nausea/vomiting (coffee ground emesis) w/ elevated transaminases and concern for CBD stone S/P EGD/ERCP w/ evidence of gastritis, suspected Briscoe's and main bile duct dilation w/ a stone causing an obstruction s/p biliary sphincterotomy and balloon extraction - No GI contraindication to advancing diet - No GI contraindication to discharge - Pantoprazole 20 mg twice daily - GERD dietary and lifestyle changes - Task sent to [facility] to arrange OP GI follow up in clinic Recall as needed. I spent a total of 40 minutes on the date of service in review of patient's record, and previously obtained information in person and appropr iate medical visit, discussion and education of plan, with patient and/or caregiver, placing orders for tests/referral/procedures as medically necessary and documentation of pertinent clinical information in patient's medical records for their visit today. Admission and Anticipated Discharge Date Admission Date: May 09, 2024 Supervising Physician Co-Signing Physician Notes I saw and examined this patient with our nurse practitioner and agree with her assessment and plan. Doing well post ERCP status post stone extraction. No signs of cholangitis or pancreatitis. Okay to advance diet. Will ultimately need an outpatient endoscopy to confirm the diagnosis of Briscoe's esophagus. Follow-up with us as an outpatient. Subjective Feeling well. No abd pain, nausea/vomiting. S/P EGD/ERCP. Transaminases improving. Tolerating oral intake. Feels ready for discharge. ERCP 2024: The middle third of the main bile duct was moderately dilated, with a stone causing an obstruction. - Choledocholithiasis was found. Complete removal was accomplished by biliary sphincterotomy and balloon extraction. - A biliary sphincterotomy was performed. EGD 2024: [place]-colored mucosa. - Erosive gastropathy. - Normal examined duodenum. - No specimens collected. Review of Systems Review of Systems: All other findings negative except as noted in HPI. Physical Exam Constitutional: WD/WN, vitals as above Respiratory: normal respiratory effort Gastrointestinal (Abdomen): normal bowel sounds, soft, nontender, no hepatosplenomegaly Skin: no rashes, warm and dry Results & Data Results & Data Vital Signs (Past 12 Hours) Vital Signs Temp Pulse Pulse Resp BP BP Pulse Ox 05/11/24 07:15 97.9 F 86 18 154/84 H 96 05/11/24 02:59 97.9 F 78 18 134/78 97 05/10/24 22:42 97.9 F 83 18 151/90 H 96 05/10/24 21:52 83 O2 Del Method O2 Flow Rate 05/11/24 07:15 Room Air 05/11/24 02:59 Nasal Cannula 2.0 05/10/24 22:42 Nasal Cannula 2.0 05/10/24 21:52 Laboratory Results 05/11/24 05/10/24 Range/Units 07:16 19:45 WBC 10.45 (4.8-10.8) K/ul RBC 4.53 (4.20-5.40) M/uL Hgb 12.8 (12.0-16.0) g/dl Hct 39.0 (37.0-47.0) % MCV 86.1 (80.0-100.0) fL MCH 28.3 (25.0-34.0) pg MCHC 32.8 (32.0-36.0) g/dL RDW Std Deviation 40.5 (36.4-46.3) fL RDW Coeff of Jeffery 12.9 (11.5-14.5) % Plt Count 122 L (130-400) K/uL MPV 10.3 (9.4-12.4) fL Immature Gran % (Auto) 0.6 % Neut % (Auto) 86.7 % Lymph % (Auto) 5.2 % [place] % (Auto) 7.4 % Eos % (Auto) 0.0 % Baso % (Auto) 0.1 % Neut # (Auto) 9.07 H (1.40-6.50) K/uL Lymph # (Auto) 0.54 L (1.20-3.40) K/uL [place] # (Auto) 0.77 H (0.11-0.59) K/uL Eos # (Auto) 0.00 (0.00-0.50) K/uL Baso # (Auto) 0.01 (0.00-0.20) K/uL Immature Gran # (Auto) 0.06 (0.01-0.20) K/uL Sodium 141 (136-145) mmol/L Potassium 3.8 (3.5-5.1) mmol/L Chloride 108 H (98-107) mmol/L Carbon Dioxide 29 (21-32) mmol/L Anion Gap 4 (3-11) BUN 19 (6-23) mg/dl Creatinine 0.66 (0.6-1.2) mg/dl Est Cr Clr Drug Dosing 68.4 ml/min eGFR 89.73 BUN/Creatinine Ratio 28.8 H (10-20) Glucose 140 H (70-99(Fasting)) mg/dl Calcium 8.5 L (8.6-10.3) mg/dl Magnesium 2.2 (1.7-2.4) mg/dl Total Bilirubin 2.2 H D (0.2-1.0) mg/dl AST 58 H (13-39) U/L ALT 133 H (7-52) U/L Alkaline Phosphatase 184 H (34-104) U/L Total Protein 5.9 L (6.0-8.3) gm/dl Albumin 3.1 L (3.4-5.0) gm/dl Globulin 2.8 (2.5-4.0) gm/dl Albumin/Globulin Ratio 1.1 (0.9-2) Stl C. cayetanensis PCR Not Detected (NotDetected) Stool Rotavirus A PCR Not Detected (NotDetected) Stl Adenov F 40/41 PCR Not Detected (NotDetected) Stool Astrovirus (PCR) Not Detected (NotDetected) Stool Campylobacter PCR Not Detected (NotDetected) Stl C. diff Tox B Gene Negative Cdiff Gene (Neg) Stool Cryptosporidium PCR Not Detected (NotDetected) Stl E.coli Shiga Tox PCR Not Detected (NotDetected) Stl Enterotoxigenic E PCR Not Detected (NotDetected) Stool EPEC (PCR) Not Detected (NotDetected) Stool EAEC (PCR) Not Detected (NotDetected) Stl E. histolytica PCR Not Detected (NotDetected) Stool Giardia Lamblia PCR Not Detected (NotDetected) Stool Salmonella PCR Not Detected (NotDetected) Stool Sapovirus (PCR) Not Detected (NotDetected) Stl P. shigelloides PCR Not Detected (NotDetected) Stl Shigella/EIEC PCR Not Detected (NotDetected) St Y.enterocolitica PCR Not Detected (NotDetected) Stool Vibrio (PCR) Not Detected (NotDetected) Stl Vibrio cholerae PCR Not Detected (NotDetected) Stl Norovirus GI/GII PCR Not Detected (NotDetected) PG Care Time/CCT Total # of Minutes Spent Total Time Spent with Patient: Total time spent is greater than 50% in coordination of care (as documented) at patient's floor/unit and/or counseling patient: Coding Level of Care Code 43063 SUB INP/OBS CARE MIN Diagnoses Choledocholithiasis K80.50
[2024-05-11 11:22] VITALS: PULSE 85
[2024-05-11 12:19] VITALS: O2SAT 94
--- NOTE | 2024-05-11 12:20 | Discharge Summary ---
Discharge Summary Date of Service May 11, 2024 Principal Dx & Hospital Course #1 = Principal Diagnosis (1) Choledocholithiasis: Appears to be the cause of acute nausea and vomiting present on admission. Nausea has now resolved. She had transient coffee-ground emesis and was treated with Protonix drip. She has since been switched to oral Protonix and Carafate. Hemoglobin remains stable. GI consultation and recommendations appreciated. ERCP was completed and revealed common bile duct stones which were removed. (2) UGIB (upper gastrointestinal bleed): Suspected on admission. Appreciate GI consultation and recommendations. EGD revealed a nonbleeding gastric ulcer. She is now on oral Protonix and Carafate. (3) Transaminitis: Mild on admission. Resolving. Serial labs (4) Hypoxia: Mild on admission. Now resolved. She vomited and may have aspirated. (5) Nausea & vomiting: Present on admission. Now resolved Plan Home today, May 11 Admission HPI Per Admitting Provider Patient is a 78-year-old female with past medical history of hypertension, CHANTELLE, breast cancer, cholecystectomy status. She presented to the ED for concern for kidney stones with right-sided flank pain, dark yellow urine, nausea, vomiting for 2 days. She was found to have elevated LFTs and then well in ED became hypoxic with oxygen level 85% on room air and began to vomit coffee-ground emesis. She is being admitted for MRCP, oxygen titration, and GI bleed workup. Patient seen at bedside. She appears diaphoretic, pale, ill-appearing. She stated that her symptoms began approximately 2 days ago with right-sided flank pain along with abdominal pain that is diffuse. She also endorses feeling feverish and with chills. Her last bowel movement was yesterday 05/08. She denies any dizziness, lightheadedness, shortness of breath, chest pain. She stated she feels like she did not aspirate and she does not feel short of breath. After receiving 2 Mg IV morphine in ED she still complains of 7/10 abdominal pain. Suspect hypoxia secondary to poor lung expansion with pain. She did state a few days ago she ate bread with butter built into it that was pretty old, concern for food poisoning. Patient is agreeable to admission and to obtain MRCP Patient does not use nicotine products or drink alcohol. She lives at home alone, her is . She denies past history of diabetes, COPD, asthma. 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 She does not use any oxygen at baseline. She did not get her home medications yesterday due to the vomiting. She wishes to be full code. Discharge Exam General-alert and oriented x3, no fever, no chills HEENT-head atraumatic and normocephalic, pupils equal and reactive to light, extraocular muscles intact Neck-no lymphadenopathy or thyromegaly, trachea midline Chest-clear to auscultation. No rales, wheezing or rhonchi Cardiac-regular rate and rhythm, normal S1 and S2 Abdomen-normal bowel sounds, no hepatosplenomegaly Extremities-no cyanosis, clubbing, or edema Neuro-cranial nerves II through XII intact, motor and sensory function within normal limits, strength symmetrical, no focal deficits Psych-normal affect, normal mood Discharge Plan Discharge Items Patient Disposition: Home - Self-Care Reason For Visit: KIDNEY PAIN,CHEST PAIN,THROWING UP Discharge Diagnosis: Suspected biliary colic, transaminitis secondary to choledocholithiasis, upper GI bleeding from gastric ulcer, hypokalemia, hypomagnesemia Activity: Resume your previous activity Non-emergency contact: Primary Care Provider Call non-emergency contact if: your symptoms worsen Follow-up/Referrals: Gabrielle Blackwell MD [Primary Care Provider] - Diet: Regular Addtl Attending Provider Instructions: Take Protonix and Carafate as directed. Protonix(pantoprazole) replaces omeprazole. Prescriptions have been sent to your pharmacy in [place]. Pending Studies at Discharge: No Stand-Alone Forms: My [facility] [place], Smoking Cessation Medications and DC Order Prescriptions: New pantoprazole 40 mg Tablet,Delayed Release (Dr/Ec) 40 mg PO BID Qty: 60 0RF sucralfate [Carafate] 1 gram tablet 1 g PO ACHS Qty: 50 0RF Continued Mucinex 1,200 mg tablet extended release 12hr 1,200 mg PO BID PRN (Reason: congestion) Qty: 60 0RF multivitamin [Daily Multi-Vitamin] tablet 1 tab PO DAILY cholecalciferol (vitamin D3) 2,000 unit tablet 2,000 units PO DAILY cyanocobalamin (vitamin B-12) 100 mcg tablet 100 mcg PO DAILY lisinopril 20 mg tablet 20 mg PO QAM Qty: 90 1RF aspirin [Ubaldo Low Dose Aspirin] 81 mg Tablet,Delayed Release (Dr/Ec) 81 mg PO BID Qty: 60 0RF Discontinued omeprazole 40 mg capsule,delayed release(DR/EC) 40 mg PO DAILY PRN (Reason: Heartburn) Qty: 90 1RF Discharge Orders: Discharge Order (Routine); Ordered 05/11/24 Ordered By: Jaleel Todd Admission Data Admit Date/Time: 05/09/24 06:27 Attending Provider: aJleel Todd Admit Provider: Giovanni Patterson Primary Care Provider: Gabrielle Blackwell Other Providers: Janae Pagna Jr; Giovanni Patterson Hospital Stay Data Consultations 05/09/24 05:32 Consult Gastroenterology Stat ED Decision to Admit Stat Procedures Performed Operation Date: 05/10/24 09:10 Actual Procedures s Esophagogastroduodenoscopy - Brett Mccormack MD p Endoscopic Retrograde Cholangiopancreato - Brett Mccormack MD Diagnostic Imagining Performed 05/09/24 01:59 CT abd pelvis wo con Stat 05/09/24 03:19 CT angio chest PE protocol Stat 05/09/24 06:18 MR MRCP Stat 05/10/24 08:16 FL ERCP biliary ductal Routine Pending Results Patient Have Any Pending Studies at Discharge: No Discharge Instructions Given to Patient (Per Discharging Provider) Take Protonix and Carafate as directed. Protonix(pantoprazole) replaces omeprazole. Prescriptions have been sent to your pharmacy in [place]. Total Time Total Time Spent Total Time Spent (In Minutes): 50 minutes Coding Level of Care Code 37347 INP/OBS DISCH >30 MIN Diagnoses Choledocholithiasis K80.50 UGIB (upper gastrointestinal bleed) K92.2 Transaminitis R74.01 Hypoxia R09.02 Nausea & vomiting R11.2
[2024-05-11 12:22] VITALS: BP 154/84
[2024-05-11] MEDS ORDERED: PANTOprazole 40 MG TAB PO SCH (21:00)
[2024-05-12 17:18] LABS: Anti Mitochondrial Antibody NEGATIVE (NEGATIVE); Anti Nuclear Antibody Screen NEGATIVE (NEGATIVE)
== END 2024-05-11 12:58 | disposition home or self-care (01) | DRG 444 ==
LOC: SUATTDRO → ED 01:43 → 2S 06:27 → SUATTDRO 06:27 → 2S 07:55